=== PATIENT | male | born 2000 | race Caucasian/White ===

== ENCOUNTER 2022-10-21 09:15 | Emergency (ER) | payer MEDICAID, SELFPAY ==
[2022-10-21 09:21] VITALS: BP 112/70; PULSE 89; RESP 18; TEMP 36.9; O2SAT 94
--- NOTE | 2022-10-21 09:37 | ED.GENADUL_ITS ---
Discharge Plan Disposition Patient Disposition: Home Condition: Stable Discharge Details Clinical Impression: Cough, Conjunctivitis of right eye Primary Care Provider: Mary Kate Yadav ED Provider: Gurvinder Caraballo Home Meds and New Rx's Prescriptions: New erythromycin 5 mg/gram (0.5 %) ointment 0.5 inch ophthalmic (eye) TID 7 Days Qty: 3.5 0RF Discharge Instructions Instructions: Conjunctivitis (ED) Additional Instructions: if not better within a week follow up with your primary care provider if you feel more ill, have difficulty breathing or severe pain return to the emergency department Medical Decision Making 22 yo male comes in with chief complaint of right eye redness. HE states last Saturday he started with a runny nose and cough that has improved but today woke up with his right eye red and had discharge from the eye. Denies any fevers, chills, chest pain, dyspnea, vision changes. HE arrives stable, speaking in full sentences in no distress. His left eye appears normal, right eye conjunctiva is erythematous, PERRL, eomi, denies any eye pain. No periorbital swelling. Clear lungs, no murmurs. I suspect he had a viral uri that has improved and now has conjunctivitis. Do not feel oral antibiotics or lab work or imaging indicated. Will start on topical antibiotics for his eye and advised to f/u with his pcp if not improving this week, return precautions given Differential Diagnosis Differential Diagnosis: uri, flu, conjunctivitis Medical Records Medical records reviewed: Yes I reviewed the patient's medical records. HPI General Mode of arrival: ambulatory . Date/Time Provider Initiated Documentation: 10/21/22 09:22 . Limitations to Documentation: no limitations . Information obtained by: patient . History of Present Illness 22 year old M presents to the emergency department with the chief complaint of right eye redness, described as mild, Patient started experiencing this day(s) (1) and it has been constant. No relieving factors improve symptom(s), No exacerbating factors reported . Patient notes denies fever/chills. Patient did receive the following treatments prior to arrival, none Related Data Home Medications Medication Instructions Recorded Confirmed erythromycin 5 mg/gram (0.5 %) eye 0.5 inch ophthalmic (eye) TID 7 10/21/22 ointment days #3.5 grams Previous Rx's Medication Instructions Recorded erythromycin 5 mg/gram (0.5 %) eye 0.5 inch ophthalmic (eye) TID 7 10/21/22 ointment days #3.5 grams Allergies Allergy/AdvReac Type Severity Reaction Status Date / Time No Known Allergies Allergy Verified 10/21/22 09:26 General Stated Complaint: RespSymp CORAL: 4 Review of Systems All systems reviewed & are unremarkable except as noted in HPI and below Constitutional Constitutional: Denies chills, Denies fever(s) and Denies weakness Eyes Eyes: Denies loss of vision ENT Ears, Nose, Mouth, and Throat: Denies change in voice Cardiovascular Cardiovascular: Denies chest pain and Denies dyspnea Respiratory Respiratory: Denies dyspnea Gastrointestinal Gastrointestinal: Denies abdominal pain, Denies nausea and Denies vomiting Integumentary/Breasts Skin/Breast: Denies rash Neurologic Neurologic: Denies loss of vision and Denies weakness Endocrine Endocrine: Denies heat intolerance PFSH All Active Problems (Updated 10/21/22 @ 09:41 by Gurvinder Caraballo MD) Cough (Acute) Conjunctivitis of right eye (Acute) Weight loss (Acute) Atrial septal defect (Chronic 09/15/13) small PFO with L to R shunt - followed by peds cardiology 02/25 Suicidal ideation (Chronic) Is [facility] aware of Sumit and his needs? Depression (Chronic) Ongoing counseling but persistent suicidal ideation despite medication (hx of Lexapro, Zoloft, Wellbutrin)- trial Effexor 04/07/21 Social anxiety disorder (Chronic) Per evaluation with Dr. Chaudhary 11/2020 Attention and concentration deficit (Chronic) Per evaluation with Dr. Chaudhary Nov 2020 Cerebral palsy (Acute 02/02/16) [place] [facility] 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; mom involved Education Level: other Details: Graduated [employer] spring 2021; working at [employer] Do you need help understanding health information?: Always Sexually active: No Do you think of yourself as: straight/heterosexual Current gender identity: male Seatbelt use: always Helmet use: Yes Drive intox or ride w/intox tour driver: No Working smoke detector in home: Yes Fire extinguisher in home: Yes Carbon monox detector in home: Yes Firearms in home: No Do you feel safe at home: Yes Do you feel safe in your relationship?: Yes Exam Const General: no acute distress Orientation: alert HENMT Head: normal to inspection Ears: external ears normal General nose exam: external nose normal Mouth: moist mucous membranes Eyes Periorbital: periorbital findings normal Neck Neck: normal visual inspection Resp Effort & Inspection: normal respiratory effort and able to speak in complete sentences Cardio Rate: regular rate Skin General skin exam: no rashes or lesions noted Neuro General: patient alert and patient oriented x3 Extrem General: normal to inspection Psych Mental Status: mental status grossly normal Course Vital Signs Vital signs: Vital Signs Temperature 36.9 C 10/21/22 09:21 Pulse 89 10/21/22 09:21 Respiratory Rate 18 10/21/22 09:21 Blood Pressure 112/70 10/21/22 09:21 Pulse Oximetry 94 10/21/22 09:21 Temperature 36.9 C 10/21/22 09:21 Temperature Source Tympanic 10/21/22 09:21 Pulse 89 10/21/22 09:21 Respiratory Rate 18 10/21/22 09:21 Respiratory Effort Non-Labored 10/21/22 09:28 Respiratory Depth Normal 10/21/22 09:28 Blood Pressure 112/70 10/21/22 09:21 Blood Pressure Position Sitting 10/21/22 09:21 Pulse Oximetry 94 10/21/22 09:21 Oxygen Delivery Method Room Air 10/21/22 09:21 Oxygen Flow Rate 0 10/21/22 09:21 Pain Level 4 10/21/22 09:21
[2022-10-21 09:46] VITALS: BP 112/70; PULSE 89; RESP 18; TEMP 36.9; O2SAT 94
== END 2022-10-21 09:46 | disposition home or self-care (01) ==
PROVIDERS: Emergency Provider Emergency Medicine
DX: R05.1 Acute cough (principal); H10.31 Unspecified acute conjunctivitis, right eye
CPT/HCPCS: 99283; 99284

== ENCOUNTER 2023-08-25 08:37 | Emergency (ER) | payer MEDICAID, SELFPAY ==
--- NOTE | 2023-08-25 08:40 | W.ED.GENAD ---
Discharge Plan Disposition Patient Disposition: Home Discharge Details Clinical Impression: Tight ring on finger Primary Care Provider: Mary Kate Yadav ED Provider: Betiot Ji Home Meds and New Rx's Prescriptions: No Action No Known Home Meds Discharge Instructions Additional Instructions: You were seen in the emergency department for the tight ring that was stuck on your left ring finger. We remove this by cutting the ring. In your attempt last night to remove the ring it caused some significant abrasions, please carefully wash the area multiple times per day and use topical antibiotics. Please phone the emergency department or see your primary care or urgent care provider for antibiotics if there is signs of infection including worsening redness, redness spreading up the finger, drainage of pus from the area. Referrals: Mary Kate Yadav MD [Primary Care Provider] - Discharge Data Discharge Date/Time-TO BE ENTERED AT DEPARTURE: 08/25/23 09:22 Medical Decision Making This dictation utilizes [id number] dictation software and may contain unedited grammatical errors. 23 y/o M presents to ED today with a chief complaint of ring stuck on L 4th finger. Onset and characteristics include minor pain with attempts at removal, did cause minor abrasions. Patient has no relevant medical history, otherwise healthy. Family and social history: noncontributory. Pertinent exam findings / vital signs include NV intact distal L 4th finger, no signs of fracture, VSS. Differential / pathologies of concern include fracture, abrasion, NOT NV compromise. Diagnostic studies of: -none. Interventions of: -ring cutter removal of ring. ED Course: Acute uncomplicated injury without systemic symptoms- ring removed without issue, recommend simple wound care for his abrasions. Findings not consistent with fracture/NV Compromise. Disposition of Tight Ring on Finger. Assessment/Plan: Counseled the patient on keeping his minor abrasions clean and applying topical antibiotics to the area and staying away from placing rings that are too small on his fingers, the patient tolerated his procedure well. Patient verbalized understanding of the plan and return to ED criteria and engaged in shared decision making. Medical Records Medical records reviewed: Yes I reviewed the patient's medical records. HPI General Date/Time Provider Initiated Documentation: 08/25/23 08:40. HPI Narrative: 23 year-old male presents to ED today by POV/ambulating with his father with a chief complaint of ring stuck on L ring finger- he put the ring on last night and it was too tight, spent considerable time trying to yank it off causing minor abrasion and swelling to the PIP joint. Quality described as throbbing, painful when he tries to get it off, no radiation to numbness/tingling, ROM deficit, hand pain, purulent drainage. Severity is described as 4-5/10. Palliating factors include tried icing it last night but still could not remove the ring. Provoking factors include nothing specific. Patient not anticoagulated. Related Data Home Medications Medication Instructions Recorded Confirmed Unknown [No Known Home Meds] 02/14/23 08/25/23 Allergies Allergy/AdvReac Type Severity Reaction Status Date / Time No Known Allergies Allergy Verified 08/25/23 08:45 General CORAL: 4 PFSH All Active Problems (Updated 08/25/23 @ 09:16 by DELORES Koehler) Tight ring on finger (Acute) Intellectual disability (Chronic) Dad has legal guardianship- need paperwork for clinic Weight loss (Acute) Atrial septal defect (Chronic 09/15/13) small PFO with L to R shunt - followed by peds cardiology 02/25 Cerebral palsy (Chronic 02/02/16) Diagnosed 11/[address] [facility] [place] Dr. Esposito Medical History (Updated 08/25/23 @ 09:16 by DELORES Koehler) COVID In Oct 2021 Suicidal ideation Is [facility] aware of Sumit and his needs? Attention and concentration deficit Per evaluation with Dr. Chaudhary Nov 2020 Social anxiety disorder Per evaluation with Dr. Chaudhary 11/2020 Depression Ongoing counseling but persistent suicidal ideation despite medication (hx of Lexapro, Zoloft, Wellbutrin)- trial Effexor 04/07/21 Syncope (09/25/17) One episode 2015; one episode 2016 Family History Mother Anxiety Depression Father Hyperlipidemia Sister Asthma Grandparent Cancer Maternal Grandfather Alcohol abuse Anxiety Depression Social History (Updated 02/16/23 @ 11:39 by Mary Kate Yadav MD) Smoking/Tobacco Use Status: Never Second Hand Exposure: No Smoking risk assessment performed?: Yes Alcohol Intake: never Drug use: Never Substance use type: does not use Adopted: No Foster care: No Household members: other Details: Parents ; 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;Mom picks up from work Housing: apartment Number of Children: 0 Communication Needs: Corrective Lenses Education Level: other Details: Graduated [employer] spring 2021; working at [employer] Do you need help understanding health information?: Always Pets and animals: No Sexually active: No Do you think of yourself as: straight/heterosexual Current gender identity: male What is your relationship status?: never Panel score (0-1 are the most socially isolated patients): 0 What type of physical activity do you participate in: other Details: Basketball everyday, walks, bike riding Seatbelt use: always Helmet use: Yes Drive intox or ride w/intox grain combine driver: No Working smoke detector in home: Yes Fire extinguisher in home: Yes Carbon monox detector in home: Yes Firearms in home: No Do you feel safe at home: Yes Do you feel safe in your relationship?: Yes Exam Narrative Exam Narrative: GENERAL APPEARANCE: Well-nourished, non-toxic, awake and alert, atraumatic, no acute distress. SKIN: Warm, pink, dry, intact, without rashes/lesions/ulcerations. HEAD: Normocephalic, atraumatic, normal hair distribution for gender/age. EYES: Pupils PERRLA, EOMs intact without nystagmus, normal conjunctiva, no exudates on lids/lashes. ENT: Nares patent, no circumoral cyanosis, no facial swelling NECK: Supple, trachea midline, painless cervical ROM. LUNGS/CHEST: Non-labored respirations, normal A/P diameter, symmetrical expansion, no chest wall deformity HEART (CV/PV): Regular rate, L radial pulse 2+, no peripheral edema, no JVD. ABDOMEN: Soft, non-distended, no guarding. MSK: Normal ROM, no swelling/deformity to bilateral UEs or LEs, moving all extremities without weakness, no cyanosis, spine midline without tenderness, normal curvature. L Hand: Large class ring style ring stuck on the proximal phalanges of the left fourth finger, minor abrasion and swelling to the PIP joint from his attempts at removal, otherwise neurovascularly intact with brisk capillary refill and sensation intact, no range of motion deficit, no proximal hand tenderness. NEURO: Mental Status AAOx4 - alert to person, place, time, events No facial droop, no forehead involvement. Motor: No focal weakness - strength 5/5 in bilateral UEs and LEs, proximal and distal, symmetric. Sensory: sensation intact to light touch globally. Gait normal: patient ambulated without ataxia into ED room. PSYCH: euthymic, cooperative, pleasant, appropriate speech Procedures Other Description: Ring cutter removal of a metal ring from the proximal left fourth finger, I used a ring cutter blade guard between his finger and remove the ring by making 2 cuts in the ring and bending with simple forceps to removal without issue. The patient was neurovascularly intact pre and post ring removal and was advised on simple wound care for his minor abrasions from his attempts to try to remove the ring last night.
[2023-08-25 08:41] VITALS: BP 131/87; PULSE 70; RESP 14; TEMP 36.7; O2SAT 100
== END 2023-08-25 09:22 | disposition home or self-care (01) ==
LOC: ER 09:47
PROVIDERS: Emergency Provider Physician Assistant
DX: S60.445A External constriction of left ring finger, initial encounter (principal); W49.04XA Ring or other jewelry causing external constriction, initial encounter
CPT/HCPCS: 99282; 99283

== ENCOUNTER 2024-06-05 17:31 | Outpatient (REF) | payer MEDICAID, SELFPAY ==
--- OUTSIDE RECORDS SUMMARY | 2024-06-05 17:33 | XMS_ITS | Encounter Summary ---
Author Organization [facility] [place] [address] Care Team Providers Care Combine Driver Name Role Phone Robel Christianson MD Primary Care Provider [phone] Reason for Visit * Reason Comments Follow-up Encounter Details Date Type Department Care Team (Latest Contact Info) Description 10/03/2015 2:00 PM EST Office Visit [place] [address] Yarely Aguilera APRN [facility] [address] PEDIATRIC [place] [address] Developmental delay; Developmental regression Social History Tobacco Use Types Packs/Day Years Used Date Smoking Tobacco: Never Smokeless Tobacco: Never Sex and Gender Information Value Date Recorded Sex Assigned at Not on file Gender Identity Not on file Sexual Orientation Not on file documented as of this encounter Last Filed Vital Signs Vital Sign Reading Time Taken Comments Blood Pressure 89/61 10/03/2015 1:54 PM EST Pulse 72 10/03/2015 1:54 PM EST Temperature - - Respiratory Rate - - Oxygen Saturation - - Inhaled Oxygen Concentration - - Weight 29.7 kg (65 lb 6.4 oz) 10/03/2015 1:54 PM EST Height 147.3 cm (4' 10) 10/03/2015 1:54 PM EST Head Circumference 54.6 cm 10/03/2015 1:54 PM EST Body Mass Index 13.67 10/03/2015 1:54 PM EST Body Mass Index Percentile 0.05% 10/03/2015 1:5 4 PM EST Growth Chart: [facility] (Boys, 2-2 0 Years) documented in this encounter Patient Instructions * Patient Instructions* Yarely Aguilera APRN - 10/03/2015 2:40 PM EST Images from the original note were not included. 1. I will call you this week after speaking with Dr. Davis about further testing. 2. Will try to coordinate follow-up with other scheduled appointments. [facility] A Healthy Lifestyle for Your Child: After Your Child's Visit Your Care Instructions A healthy lifestyle can help your child feel good, stay at a healthy weight, and have lots of energy for school and play. In fact, a healthy lifestyle will help your whole family. It also will show your child that everyone needs to take care of his or her health. Good food and plenty of exercise are the main things you can do to have a healthy lifestyle. Healthy eating means eating fruits and vege tables, lean meats and dairy, and whole grains. It also means not eating too much fat, sugar, and fast food. Your child can still eat desserts or other treats now and then. The goal is moderation. It is important for your child to stay at a healthy weight. A child who weighs too much may developserious health problems, such as high blood pressure, high cholesterol, or type 2 diabetes. Good eating habits and exercise are especially important if your child already has any health problems. You can follow a few tips to improve the health of your child and your whole family. Follow-up care is a lucero part of your child's treatment and safety. Be sure to make and go to all appointments, and call your doctor if your child is having problems. It's also a good idea to know your child's test results and keep a list of the medicines your child takes. How can you care for your child at home? ?? Start with some small steps to improve your family's eating habits. You can cut down on portion sizes, drink less juice and soda pop, and eat more fruits and vegetables. ?? Eat smaller portions of food. A 3-ounce serving of meat, for example, is about the size of a deck of cards. ?? Let your child drink no more than 1 small cup of juice, sports drink, or soda pop a day. Have your child drink water when he or she is thirsty. ?? Offer more fruits and vegetables at meals and snacks. ?? Eat as a family as often as possible. Keep family meals fun and positive. ?? Make exercise a part of your family's daily life. Encourage your child to be active for at least1 hour every day. ?? Walk with your child to do errands or to the bus stop or school. ?? Take bike rides as a family. ?? Give every family member daily, weekly, or monthly chores, such as housecleaning, weeding the garden, or washing the car. ?? Let your child watch television or play video games for no more than 1 to 2 hours each day. Sit down with your child and plan out how he or she will use this time. ?? Do not put a TV in your child's room. ?? Be a good role model. Practice the eating and exercise habits that you want your child to have. Where can you learn more? Visit our health information library at [email or web address] You can also view health information on [employer], your personal patient account. Log in or sign up today. Enter U981 in the search box to learn more about A Healthy Lifestyle for Your Child: After Your Child's Visit. ?? [phone] [email or web address]. Care instructions adapted under license by [facility]. This care instruction is for use with your licensed healthcare professional. If you have questions about a medical condition or this instruction, always ask your healthcare professional. [email or web address] disclaims any warranty or liability for your use of this information. Content Version: 10.4.500825; Current as of: August 27, 2014 documented in this encounter Progress Notes * Yarely Aguilera APRN - 10/03/2015 1:55 PM EST Patient name: Sumit Simmons Date of : 2000 History of Present Illness: Sumit Simmons was seen today in clinic for follow up of developmental delay and regression in the area of spelling and writing. He is a 13-1/12th year old last seen 07/[address] Davis. He is here today with his mother. Patient Active Problem List Diagnosis Code ??? PFO (patent foramen ovale) Q21.1 ??? Aortic valve defect I35.9 ??? Developmental delay R62.50 ??? Developmental regression R62.50 ??? Transient alteration of awareness R40.4 Sumit is a 15 year old male with history of developmental delay and learning difficulties. He is josie IEP at school and is integrated into the mainstream classroom with special education pull out support. There is also an aide in the classroom who will help him throughout the day. He has difficulty specifically with literacy and math. He reads very well but his comprehension is below grade level, per mom. He will ask for help with spelling of words he can easily read. Math is his weakest subject and he is working on addition and subtraction. Sumit reports he likes science. 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 At home he watches TV and plays basketball and football with his dad. There have been no suspected seizures. He used to chew his tongue and grind his teeth when he was younger. He does not have disturbed sleep or urinary incontinence. He is a picky eater. He likes hamburgers, macaroni and cheese, pasta, peanut butter and drinks whole milk. His mother will give him sup plemental calorie drinks as well. Updated family history: He has as a paternal cousin with autism and another paternal cousin with dyslexia. Review of systems: As above. No other EENT, cardiac, respiratory, gastrointestinal, genitourinary, musculoskeletal, skin, hematologic, endocrine, ID, or neurologic complaints. Medications 10/03/15 1354 Not on File Physical Exam: Vitals: Filed Vitals: 10/03/15 1354 BP: 89/61 Pulse: 72 Constitutional: Well-appearing slim male in NAD. HEENT: Normocephalic, atraumatic. MMM. Neck: Supple, no lymphadenopathy CV: RRR, no murmur appreciated Resp: CTAB Abd: Soft, nontender, nondistended Neuro: MS: Alert and oriented. Speech is fluent and language is clear. Easily follows commands. CN: PERRL. Extraocular movements intact. Vision is grossly intact. Optic fundi are benign. Stearns are full to confrontation. Facial sensation is intact. Face is symmetric with smile. Motor: Normal bulk and tone. 5/5 strength in bilateral upper and lower extremities. There is no pronator drift. Sensation: Intact to light touch throughout. Reflexes: 2+ and symmetric DTRs, bilaterally downgoing toes. Coordination: No gross dysmetria. Gait: Normal, including tandem and stressed gait. LABORATORY DATA: (from Dr. Davis's compendium of labs) Imaging Studies: 07/2015 brain MRI IMPRESSION: Negative brain MRI. Gene Studies: ?? Chromosome microarray, SNP: normal. Heme and Inflammatory Studies: CBC (with Diff): Normal Lyme: Antibody Positive, Confirmation negative TT.5 EEGs: ?? August, 24 Hour EEG, Portable: normal; no push button events. No ESES. Small Molecule Disease Studies: Uric acid: Normal Triglyceride: Normal HDL/Cholesterol Profile: Normal Lactate, plasma: Normal Ammonia: Normal Organic Acids Screen, urine: Normal 3-Methylglutaconic Acid, Urine: 8.6, mildly above the age range. Purine and Pyrimidine Panel, urine: the excretion of uric acid was mildly elevated. Patients with complete hypoxanthine-guanine phosphoribosyltransferase (HGPRT) deficiency (Lesch-Nyhan syndrome; X-linked) or phosphoribosyl pyrophosphatase (PRPP) synthetase superactivity (X-linked) usually present with more significant hyperuricosuria. Alternatively, disorders presenting with low uric acid in plasma and hyperuricosuria include hereditary renal hypouricemia and other tubular transport defects. Finally, a diet high in purines may cause increased levels of plasma and urine uric acid. We need clinical information to provide further interpretation. Acylglycines Quantitative Urine: normal. Acylcarnitines, plasma, quantitative: normal. Carnitine: normal CK: Normal TSH: Normal T4, free: Normal Vitamin D: 37 Amino Acids, Urine, Quantitative: the excretion of lysine was mildly elevated. If the patient has a history of protein intolerance and hyperammonemia, consider ruling out a possible diagnosis of lysinuric protein intolerance. Large Molecule Disease Studies: Mucopolysaccharides (MPS) Quantitative, Urine: normal. Patients with MPS IV (Morquio), MPS ([place]oteaux-[place]) and MPS VII (Sly) are not reliably detected due to the inconsistent excretion of glycosaminoglycans in these syndromes. False negative results have been observed. Assessment: Patient Active Problem List Diagnosis ??? Transient alteration of awareness ??? Developmental delay Overview Note: Language primarily ??? Developmental regression ??? Aortic valve defect Overview Note: 11-24-10 ECHO: aortic valve appears bicommissural. No evidence of aortic valve stenosis. Trace aortic regurgitation 03-08-15 ECHO: Aortic valve appears normal. There is trace aortic regurgitation. This is barely seen, and much less apparent than on prior studies. No SBE precautions. No activity restrictions. Follow up 2019 ??? PFO (patent foramen ovale) Overview Note: 11-24-10 ECHO: small secundum atrial septal defect. Measures 3-4mm in diameter. Left to right shunting 03-08-15 ECHO: tiny PFO with left to right shunting. No secundum ASD Sumit Simmons is a 15 y.o. seen today for follow up of developmental delay and regression. [place] Dr. Davis who initiated a work-up for underlying cause of his developmental delay. I reviewedthese labs with Dr. Davis Plan: 1. Urine for flexitest uric acid/Cr ratio to [email or web address] (Dr. Davis will put in this order). 2. Blood amino acids 3. Follow up with Dr. Davis or Brittany if this can be coordinate with 12/06 or 12/07 appointments with child development. documented in this encounter Plan of Treatment Not on file documented as of this encounter Results * (ABNORMAL) Amino Acids, Plasma, Quantitative (12/07/2015 10:46 AM EST) Amino Acid Quant (MAY) Test ? Result ??Flag ??Unit ? RefValue Amino Acids, QN, P ??Phosphoserine ?0 ? nmol/mL ??<95 ??Phosphoethanol amine ?<2 ?nmol/mL ??<5 ??Taurine ?58 ?nmol/mL ??38-153 ??Asparagine ? 79 ?nmol/mL ??29-87 ??Serine ? 134 ? nmol/mL ??71-208 ??Hydroxyproline ? 19 ?nmol/mL ??7-35 ??Glycine ?415 ? nmol/mL ??149-417 ??Glutamine ?756 ? nmol/mL ??329-976 ??Aspartic Acid ?2 ? nmol/mL ??<11 ??Ethanolamine ? <7 ?nmol/mL ??<64 ??Histidine ?97 ?nmol/mL ??12-132 ??Threonine ?142 ? nmol/mL ??58-195 ??Citrulline ? 28 ?nmol/mL ??11-45 ??Sarcosine ?1 ? nmol/mL ??<5 ??Beta-Alanine ? 9 ? nmol/mL ??<27 ??Alanine ?478 ? nmol/mL ??144-557 ??Glutamic Acid ?23 ?nmol/mL ??22-131 ??1-Methylhistid ine ?0 ? nmol/mL ??<20 ??3-Methylhistid ine ?2 ?H ?nmol/mL ??<1 ??Argininosuccin ic Acid ?0 ? nmol/mL ??<2 ??Carnosine ?0 ? nmol/mL ??<1 ??Anserine ? 0 ? nmol/mL ??<1 ??Homocitrulline ? 0 ? nmol/mL ??<2 ??Arginine ? 82 ?nmol/mL ??31-132 ??Alpha-aminoadi pic Acid ? 1 ? nmol/mL ??<3 ??Prhcp-mhsdo-f- butyric ?0 ? nmol/mL ??<3 ?Acid ??Beta-aminoisob utyric Acid ??2 ? nmol/mL ??<5 ??Wknnz-qaldj-m- butyric ?18 ?nmol/mL ??7-31 ?Acid ??Hydroxylysine ?0 ? nmol/mL ??<3 ??Proline ?274 ? nmol/mL ??80-357 ??Ornithine ?64 ?nmol/mL ??22-97 ??Cystathionine ?<1 ?nmol/mL ??<2 ??Cystine ?25 ?nmol/mL ??2-36 ??Lysine ? 177 ? nmol/mL ??59-240 ??Methionine ? 20 ?nmol/mL ??11-37 ??Valine ? 243 ? nmol/mL ??106-320 ??Tyrosine ? 52 ?nmol/mL ??31-106 ??Isoleucine ? 70 ?nmol/mL ??30-111 ??Leucine ?134 ? nmol/mL ??51-196 ??Phenylalanine ?57 ?nmol/mL ??30-95 ??Tryptophan ? 63 ?nmol/mL ??23-80 ??Allo-isoleucin e ?2 ? nmol/mL ??<3 ??Interpretation (AAQP) ?SEE COMMENTS In this sample, the amino acid profile was essentially normal. ---ADDITIONAL INFORMATION----- Liquid Chromatography-T andem Mass Spectrometry (LC-MS/MS) Test Performed by: [place] [address] Dumper Operator: Paco Emery II, M.D., Ph.D.(A) [facility] Blood specimen (specimen) 12/07/2015 10:46 AM EST 12/07/2015 12:43 PM EST Narrative Resulting Agency Comment Spec In Lab Tawanda Davis MD LAB SEND OUT ORDERAB LES Performing Organization Address City/State/[facility] Co de Phone Number [facility] [place] [address] documented in this encounter Visit Diagnoses Diagnosis Developmental delay Lack of normal physiological development, unspecified Developmental regression Unspecified delay in development documented in this encounter Care Teams Combine Driver Relationship Specialty Start Date End Date Robel Christianson MD [address] [place] [address] PCP - General 09/05/10 02/26/22 documented as of this encounter
--- OUTSIDE RECORDS SUMMARY | 2024-06-05 17:33 | XMS_ITS | Encounter Summary ---
[facility] [place] [address] Care Team Providers Care Electronics Scale Tester Name Role Phone Robel Christianson MD Primary Care Provider [phone] Encounter Details Date Type Department Care Team (Latest Contact Info) Description 03/08/2015 12:43 PM EDT - 03/08/2015 11:59 PM EDT Hospital Encounter [place] [phone] ASD (atrial septal defect); Aortic valve defect Social History Tobacco Use Types Packs/Day Years Used Date Smoking Tobacco: Never Sex and Gender Information Value Date Recorded Sex Assigned at Not on file Gender Identity Not on file Sexual Orientation Not on file documented as of this encounter Plan of Treatment Not on file documented as of this encounter Procedures Procedure Name Priority Date/Time Associated Diagnosis Comments ECHOCARDIOGRAM TRANSTHORACIC Routine 03/08/2015 1:36 PM EDT ASD (atrial septal defect) Aortic valve defect documented in this encounter Results * Echocardiogram Transthoracic(Leb) (03/08/2015 1:36 PM EDT) Anatomical Region Laterality Modality Other 03/08/2015 Narrative 03/08/2015 4:05 PM EDT Amended Report Procedure: ? Pediatric Echocardiogram Patient: ? RILEY Akhtar ? (Age): 2000(14) Med Rec#: ?[id number] ? Sex: ?M ? Site Loc: ?[facility] ? Ht / Wt: ??144.2(cm)/28.1( Pt. Loc: ? Echo Lab ? BSA: ?1.06 Study Date: ?03/08/2015 ? Pt. Type: Outpatient Study Quality: ?Tape: ? 33 Referring: Eliseo Miller B. ([id number]) Outreach Clinician: Kim Loza Diagnosis: ??PFO (745.5) CPT Code(s): ??Color Doppler (45799), ??Doppler LTD (69368), ??Echo Matty LTD (10515), Indication(s): ??Patent foramen ovale Rhythm: Sinus HR ?BP ?103/63 ?? SUMMARY: 1. There is a tiny PFO with left to right shunting. There is no secundum ASD. 2. The aortic valve appears normal. There is trace aortic regurgitation. This is barely seen, and much less apparent than on prior studies. 3. Qualitatively normal left ventricular size and systolic function. 4. See remainder of report for additional findings. FINDINGS: Segments/Situs ?{S,D,S} Atria And Veins ?The SVC and IVC enter the right atrium with normal flow. ?The pulmonary veins were not evaluated. ?The right atrium is normal sized. ?The left atrium is normal sized. Atrial Septum ?There is a PFO with left to right shunting. ?There is no secundum ASD. Atrioventricular Valves ?The tricuspid valve appears normal. ?There is mild tricuspid regurgitation. ?TR jet estimates right ventricular pressure at 14 mmHg plus mean right atrial pressure. ?The mitral valve structure appears normal. ?There is no evidence of mitral valve stenosis. ?There is no evidence of mitral regurgitation. Ventricles ?Qualitatively normal right ventricular size and systolic function. ?Qualitatively normal left ventricular size and systolic function. Semilunar Valves ?The pulmonic valve leaflets appear normal. ?There is no pulmonic valve stenosis. ?There is trace pulmonic regurgitation. ?The aortic valve appears normal. ?There is trace aortic regurgitation. ?Aortic root is normal sized. Great Vessels ?The ascending aorta, transverse arch, and descending aorta are widely patent without obstruction to flow. ?The ascending aorta is normal sized. Coronaries ?The coronary arteries were not evaluated. Effusion ?The pericardium appears normal. Miscellaneous ?Congenital two-dimensional echo limited, limited spectral Doppler and color Doppler performed. M-mode ?Value ?Units (Range) ? Z Score ? IVSd ?6 ?mm (5.5 to 9) ? -1.5 ? LVIDd ? 41 ? mm (34 to 45.5) ? 0.4 ? LVPWd ? 5 ?mm (5.5 to 9) ? -2.7 ? LVIDs ? 27 ? mm ? LVFS ?34.15 ?% ? LV Mass ? 60.24 ?g ? Aorta ?Value ?Units (Range) ? Z Score ? Ao annulus ?17 ? mm (12.5 to 18.5) ?? 1 ? Ao root ? 21 ? mm (15.5 to 24.5) ?? 0.4 ? Sinotub ? 5 ?mm ? Asc Ao ?17 ? mm (13.5 to 21) ? -0.2 ? Tricuspid Valve ?Value ?Units (Range) ? Z Score ? TR pk dianelys ? 1.9 ?m/sec ? TR pk grad ?14 ? mmHg ? All Z scores are estimated This report has been electronically signed by: Eliseo Miller MD ? 03/08/2015 16:05:34 Images reviewed and interpretation verified [facility] Procedure Note Eliseo Miller MD - 03/08/2015 Amended Report Procedure: Pediatric Echocardiogram Patient: RILEY Akhtar (Age): 2000(14) Med Rec#: [id number] Sex: M Site Loc: [facility] Ht / Wt: 144.2(cm)/28.1( Pt. Loc: Echo Lab BSA: 1.06 Study Date: 03/08/2015 Pt. Type: Outpatient Study Quality: Tape: 33 Referring: Eliseo Miller B. ([id number]) Outreach Clinician: Kim Loza Diagnosis: PFO (745.5) CPT Code(s): Color Doppler (20195), Doppler LTD (07363), Echo Matty LTD (09598), Indication(s): Patent foramen ovale Rhythm: Sinus HR BP 103/63 SUMMARY: 1. There is a tiny PFO with left to right shunting. There is no secundum ASD. 2. The aortic valve appears normal. There is trace aortic regurgitation. This is barely seen, and much less apparent than on prior studies. 3. Qualitatively normal left ventricular size and systolic function. 4. See remainder of report for additional findings. FINDINGS: Segments/Situs {S,D,S} Atria And Veins The SVC and IVC enter the right atrium with normal flow. The pulmonary veins were not evaluated. The right atrium is normal sized. The left atrium is normal sized. Atrial Septum There is a PFO with left to right shunting. There is no secundum ASD. Atrioventricular Valves The tricuspid valve appears normal. There is mild tricuspid regurgitation. TR jet estimates right ventricular pressure at 14 mmHg plus mean right atrial pressure. The mitral valve structure appears normal. There is no evidence of mitral valve stenosis. There is no evidence of mitral regurgitation. Ventricles Qualitatively normal right ventricular size and systolic function. Qualitatively normal left ventricular size and systolic function. Semilunar Valves The pulmonic valve leaflets appear normal. There is no pulmonic valve stenosis. There is trace pulmonic regurgitation. The aortic valve appears normal. There is trace aortic regurgitation. Aortic root is normal sized. Great Vessels The ascending aorta, transverse arch, and descending aorta are widely patent without obstruction to flow. The ascending aorta is normal sized. Coronaries The coronary arteries were not evaluated. Effusion The pericardium appears normal. Miscellaneous Congenital two-dimensional echo limited, limited spectral Doppler and color Doppler performed. M-mode Value Units (Range) Z Score IVSd 6 mm (5.5 to 9) -1.5 LVIDd 41 mm (34 to 45.5) 0.4 LVPWd 5 mm (5.5 to 9) -2.7 LVIDs 27 mm LVFS 34.15 % LV Mass 60.24 g Aorta Value Units (Range) Z Score Ao annulus 17 mm (12.5 to 18.5) 1 Ao root 21 mm (15.5 to 24.5) 0.4 Sinotub 5 mm Asc Ao 17 mm (13.5 to 21) -0.2 Tricuspid Valve Value Units (Range) Z Score TR pk dianelys 1.9 m/sec TR pk grad 14 mmHg All Z scores are estimated This report has been electronically signed by: Eliseo Miller MD 03/08/2015 16:05:34 Images reviewed and interpretation verified [facility] Jasbir Farrar MD ECHO ORDERABLES documented in this encounter Visit Diagnoses Diagnosis ASD (atrial septal defect) Ostium secundum type atrial septal defect Aortic valve defect Aortic valve disorders documented in this encounter Care Teams Electronics Scale Tester Relationship Specialty Start Date End Date Robel Christianson MD [address] [place] [address] PCP - General 09/05/10 02/26/22 documented as of this encounter
--- OUTSIDE RECORDS SUMMARY | 2024-06-05 17:33 | XMS_ITS | Encounter Summary ---
Author Organization [facility] [place] [address] Care Team Providers Care Office Cashier Name Role Phone Robel Christianson MD Primary Care Provider [phone] Encounter Details Date Type Department Care Team (Late st Contact Info) Description 10/19/2015 Telephone [place] [phone] Yarely Aguilera APRN [facility] [place]AT[place] [address] Social History Tobacco Use Types Packs/Day Years Used Date Smoking Tobacco: Never Smokeless Tobacco: Never Sex and Gender Information Value Date Recorded Sex Assigned at Not on file Gender Identity Not on file Sexual Orientation Not on file documented as of this encounter Miscellaneous Notes * Telephone Encounter - Yarely Aguilera APRN - 10/19/2015 1:56 PM EST Spoke with mom- orders in for additional labs, would like for Sumit to come in prior to his follow up to have labs done. Mom in agreement with plan. documented in this encounter Plan of Treatment Not on file documented as of this encounter Visit Diagnoses Not on filedocumented in this encounter Care Teams Office Cashier Relationship Specialty Start Date End Date Robel Christianson MD [address] [place] [place] [address] PCP - General 09/05/10 02/26/22 documented as of this encounter
--- OUTSIDE RECORDS SUMMARY | 2024-06-05 17:33 | XMS_ITS | Encounter Summary ---
Author Organization [facility] [place] [address] Care Team Providers Care Level Vial Grinder Name Role Phone Robel Christianson MD Primary Care Provider [phone] Encounter Details Date Type Department Care Team (Late st Contact Info) Description 11/30/2015 [place] [address] Velvet Ray MEd CHILD DEVELOPMENT Social History Tobacco Use Types Packs/Day Years Used Date Smoking Tobacco: Never Smokeless Tobacco: Never Sex and Gender Information Value Date Recorded Sex Assigned at Not on file Gender Identity Not on file Sexual Orientation Not on file documented as of this encounter Progress Notes * Velvet Ray MEd - 11/30/2015 2:58 PM EST Sumit is an15 year old sixth grader at the [employer] in [place], [place] where he receives special education services through an Individualized Education Plan (IEP)under the primary disability on Intellectual Disability and receives special education, small group instruction in math and language arts 5 days a week for 60 minutes each, speech therapy 2 times a week for 20 minutes each,and para-educator support with IEP goals that focus on the areas of reading comprehension, math calculation, concepts and problem solving, written expression and communication skills. As part of his [employer] testing, Sumit was given the following test and received the indicated scores in 12/2013: WISC-IV ([employer] Intelligence Scale for Children-IV) Verbal Comprehension 55 Extremely Low Similarities 3 Vocabulary 1 Information 3 Perceptual Reasoning 55 Extremely Low Block Design 3 Picture Concepts 3 Matrix Reasoning 2 Working Memory 50 Extremely Low Digit Span 1 Letter/# Sequence 1 Processing Speed 50 Extremely Low Coding 1 Symbol Search 1 Full Scale IQ 43 Extremely Low [place] Tyrone-III Achievement Test AGE-BASED GRADE-BASED Basic Reading Skills SS 80 Age 8.4Low Average SS 86 Gr. 3.0 Low Average Letter/Word Ident. SS 77 Age 8.4 Borderline SS 85 Gr. 3.0 Low Average Word Attack SS 87 Age 8.3 Low Average SS 91 Gr. 2.9 Average Reading Comprehension SS 46 Age 6.8 Extremely Low SS 46 Gr. 1.4 Extremely Low Passage Comp. SS 66 Age 7.2 Extremely Low SS 75 Gr. 1.9 Borderline Reading Vocabulary SS 41 Age 6.0 Extremely Low SS 39 Gr. K.7 Extremely Low Mathematics Calculation SS 25 Age 6.4 Extremely Low SS 28 Gr. 1.0 Extremely Low Calculation SS 32 Age 6.5 Extremely Low SS 37 Gr. 1.1 Extremely Low Math Fluency SS 49 Age 5.1 Extremely Low SS 51 Gr. <K.1Extremely Low Math Reasoning SS 48 Age 6.4 Extremely Low SS 54 Gr. 1.0 Extremely Low Applied Problems SS 45 Age 5.9 Extremely Low SS 50 Gr. K.5 Extremely Low Quantitative ConceptsSS 56 Age 6.11Extremely Low SS 65 Gr. 1.7 Extremely Low Written Expression SS 43 Age 6.9 Extremely Low SS 52 Gr. 1.4 Extremely Low Writing Fluency SS 69 Age 7.7 Extremely Low SS 72 Gr. 2.3 Borderline Writing Samples SS 34 Age<6.7Extremely Low SS 42 Gr. <1.3 Extremely Low Adaptive Behavior Assessment System-II (ABAS-II)-only enough information was obtained for these areas on the home survey, none available for school portion. General Adaptive Composite 40 Conceptual 48 Social 53 Practical 40 *adaptive data from the home reveals significant amount of extremely low adaptive deficit across all areas assessed.* CELF-4 Composite Scores Core Language SS 48 Receptive Language SS 52 Expressive Language SS 55 Language Content SS 58 Language Memory SS 48 [place] Picture Vocabulary Test (PPVT) SS 93 32%ile In 03/2010, Sumit received the following test scores: WISC -IV Verbal Comprehension Index SS 59 Well below Average Perceptual Reasoning SS 71 Borderline Working Memory SS 54 Well Below Average Processing Speed SS 70 Borderline Full Scale IQ SS 56 Well Below Average BASC-2 - Home: overall behavioral systems index, internalizing and externalizing problems were within normal limits; Withdrawal and Attention problems were in the clinically significant range, Adaptive scale within the marginally significant range, functional communication in the statistically significant range; School: BSI, eternalizing and internalizing problems in the normal range; adaptive scale, social skills, leadership and functional communication in the borderline range. ABAS-II Conceptual SS 78 7%ile Social SS 91 27%ile Practical SS 89 23%ile General Ability Composite SS 82 12%ile Low Average Range *mom???s primary concern is finding Sumit???s cognitive, developmental and potential capabilities versus his achievement to report to the school in developing his home and future educational direction, needs and recommendations since he hasn???t been tested in a while and they are approaching the teenage transitional years.* documented in this encounter Plan of Treatment Not on file documented as of this encounter Visit Diagnoses Not on filedocumented in this encounter Care Teams Level Vial Grinder Relationship Specialty Start Date End Date Robel Christianson MD [address] [place] [address] PCP - General 09/05/10 02/26/22 documented as of this encounter
--- OUTSIDE RECORDS SUMMARY | 2024-06-05 17:33 | XMS_ITS | Encounter Summary ---
Author Organization [facility] Address [facility] [place] [address] Care Team Providers Care Maintenance Mechanic Telephone Name Role Phone Robel Christianson MD Primary Care Provider [phone] Reason for Referral * Consultation (Routine) - Closed Specialty Diagnoses / Procedures Referred By Contac t Referred To Contact Child Neurology and Development Diagnoses Lack of stamina Procedures Please schedule NPW and send Dr. Feng's packet. Eliseo Miller MD [facility] [place] [address] Tawanda Feng MD [facility] [place] [address] Referral ID Status Reason Start Date Expiration Date V isits Requested Visits Authorized [id number] Closed Consult, Test & Treat 03/08/2015 03/07/2016 3 3 Reason for Visit * Reason Comments Atrial Septal Defect Encounter Details Date Type Department Care Team (Late st Contact Info) Description 03/08/2015 2:00 PM EDT Follow-Up Pediatric Cardiology at [place] [phone] Eliseo Miller MD [facility] [place] [place] [address] Lack of stamina Discharge Disposition: Home Social History Tobacco Use Types Packs/Day Years Used Date Smoking Tobacco: Never Sex and Gender Information Value Date Recorded Sex Assigned at Not on file Gender Identity Not on file Sexual Orientation Not on file documented as of this encounter Last Filed Vital Signs Vital Sign Reading Time Taken Comments Blood Pressure 103/63 03/08/2015 1:18 PM EDT right arm Pulse 67 03/08/2015 1:18 PM EDT Temperature - - Respiratory Rate 24 03/08/2015 1:18 PM EDT Oxygen Saturation 100% 03/08/2015 1:1 8 PM EDT Inhaled Oxygen Concentration - - Weight 28.1 kg (61 lb 15.2 oz) 03/08/20 15 1:18 PM EDT Height 144.2 cm (4' 8.77) 03/08/2015 1 :18 PM EDT Body Mass Index 13.51 03/08/2015 1:18 PM EDT Body Mass Index Percentile 0.07% 03/08 1:18 PM EDT Growth Chart: [facility] (Boys, 2-2 0 Years) documented in this encounter Progress Notes * Eliseo Miller MD - 03/08/2015 2:35 PM EDT Sumit is a 14 y.o. old ( 2000) child seen in the Pediatric Cardiology Clinic at [facility] on 03/08/2015 with the following problems: Patient Active Problem List Diagnosis ??? Aortic valve defect 11-24-10 ECHO: aortic valve appears bicommissural. No evidence of aortic valve stenosis. Trace aortic regurgitation. ??? PFO (patent foramen ovale) 11-24-10 ECHO: small secundum atrial septal defect. Measures 3-4mm in diameter. Left to right shunting. Follow up 3-4 years Interim History: Sumit has been a healthy child since the last visit with no specific symptoms referable to the cardiovascular system. Sumit has a longstanding history of poor stamina. This has not changed recently. His mother reportsthat Sumit fatigues easily with any activity. He went for a bike ride with his father over the weekend and had difficulty riding for 2 miles. He is not so much short of breath as he is just tired outwith that level of exercise. Sumit has had no complaints of chest pain, dyspnea, palpitations and syncope. Sumit has had no recent hospitalizations or surgery. Past Medical History: Sumit was first diagnosed with an ASD as a . Echocardiograms have alsoshown a bicuspid aortic valve with trace aortic insufficiency. Sumit began walking at 4 years of and, never crawled. He has been evaluated in the Child Development Clinic in [place], but was last seen there 5 years ago. Sumit was evaluated by Genetics many years ago (apparently in [place]); mother relates that no diagnosis was made. He has not seen a Neurologist or had other evaluation for his poor stamina.. Review of Systems: + for learning disorder Negative for other constitutional, respiratory, gastrointestinal, neurologic, endocrine, hematologic, immunologic, urinary, dermatologic, or musculoskeletal symptoms. Social History: Sumit is here today with his mother. Sumit is in the fifth grade and has an IEP. Medications: No current outpatient prescriptions on file. No current facility-administered medications for this visit. Physical Exam: Filed Vitals: 03/08/15 1318 BP: 103/63 Pulse: 67 Resp: 24 Height: 144.2 cm (4' 8.77) Weight: 28.1 kg (61 lb 15.2 oz) SpO2: 100% 1%ile based on [facility] 2-20 Years [id number] data using vitals from 03/08/2015. 13%ile based on [facility] 2-20 Years [id number] data using vitals from 03/08/2015. Body mass index is 13.51 kg/(m^2). Sumit is a pleasant, thin boy in no distress. General: Alert, appropriate and responsive HEENT: No dysmorphic facial features; mucosa is pink and moist; sclera are not injected, gaze is conjugate Chest: Unlabored effort; clear to auscultation bilaterally; equal breath sounds. Cardiovascular: Regular rate and rhythm. Normal precordial activity. S1 normal. S2 normal. No systolic or diastolic murmur. No click, gallop or rub Abdomen: Soft. Non-tender and non-distended. No hepatosplenomegaly. Extremities: No deformities. Brachial and femoral pulses normal and non- discrepant. No clubbing, cyanosis or edema Neurological: Normal tone, strength, and response to tactile stimuli Skin: Normal appearance and turgor ECHO: The echocardiogram obtained today was reviewed and demonstrates: 1. There is a tiny PFO with left to right shunting. There is no secundum ASD. 2. The aortic valve appears normal. There is trace aortic regurgitation. This is barely seen, and much less apparent than on prior studies. 3. Qualitatively normal left ventricular size and systolic function. 4. See remainder of report for additional findings. Assessment: Sumit has evidence for any significant cardiac problems. The echocardiogram today is reassuring with a tiny patent foramen ovale, only trace aortic insufficiency, and a normal appearing aortic valve.Ventricular function is normal. Sumit has no evidence for problematic arrhythmia or syncope. Sumit has poor stamina that cannot be explained by any cardiac condition. It is my impression that this warrants further evaluation given the degree of exercise impairment. We discussed that a neurometabolic cause should be considered, and that it would be reasonable to refer Sumit for neurometabolic evaluation. Recommendations: No further cardiac evaluation at this time. Referral to Dr. Feng for neurometabolic evaluation. No limitations or restrictions in Sumit's activity. SBE precautions are not indicated based on [place] [employer] guidelines. Follow-up: 5 years in Cardiology with electrocardiogram at that time. documented in this encounter Plan of Treatment Scheduled Referrals Name Type Priority Associated Diagnoses Orde r Schedule Referral to Pediatric Neurology Outpatient Referral Routine Lack Of Stamina Ordered: 03/08/2015 documented as of this encounter Visit Diagnoses Diagnosis Lack of stamina documented in this encounter Care Teams Maintenance Mechanic Telephone Relationship Specialty Start Date End Date Robel Christianson MD [address] [place] [address] PCP - General 09/05/10 02/26/22 documented as of this encounter
--- OUTSIDE RECORDS SUMMARY | 2024-06-05 17:33 | XMS_ITS | Encounter Summary ---
Author Organization [facility] [place] [address] Care Team Providers Care Returned Case Inspector Name Role Phone Robel Christianson MD Primary Care Provider [phone] Encounter Details Date Type Department Care Team (Late st Contact Info) Description 03/29/2020 Telephone [place] [phone] Ophelia Martínez Social History Tobacco Use Types Packs/Day Years Used Date Smoking Tobacco: Never Smokeless Tobacco: Never Sex and Gender Information Value Date Recorded Sex Assigned at Not on file Gender Identity Not on file Sexual Orientation Not on file documented as of this encounter Miscellaneous Notes * Telephone Encounter - Ophelia Martínez - 03/29/2020 3:57 PM EDT RECALL REPORT DATE OF RECALL: 02/12/2020 PHONE CALL: 03/29/2020 LETTERS SENT : 03/29/2020 FOLLOW UP NEEDED: Echo/ov DIAGNOSIS : BAV,PFO PRODIVER: NB documented in this encounter Plan of Treatment Not on file documented as of this encounter Visit Diagnoses Not on filedocumented in this encounter Care Teams Returned Case Inspector Relationship Specialty Start Date End Date Robel Christianson MD [address] [place] [address] PCP - General 09/05/10 02/26/22 documented as of this encounter
--- OUTSIDE RECORDS SUMMARY | 2024-06-05 17:33 | XMS_ITS | Encounter Summary ---
[facility] [place] [address] Care Team Providers Care Singe Machine Operator Name Role Phone Robel Christianson MD Primary Care Provider [phone] Encounter Details Date Type Department Care Team (Late st Contact Info) Description 08/03/2015 Orders Only [place] [id number] Jaden Bird Social History Tobacco Use Types Packs/Day Years [...] on filedocumented in this encounter Care Teams Singe Machine Operator Relationship Specialty Start Date End Date Robel Christianson MD [address] [place] [address] [place] [address] PCP - General 09/05/10 02/26/22 documented as of this encounter
--- OUTSIDE RECORDS SUMMARY | 2024-06-05 17:33 | XMS_ITS | Clinical Summary ---
Author Organization [facility] Address [address] [place] [address] Care Team Providers Care Music Teacher Name Role Phone Robel Christianson MD Primary Care Provider [phone] Social History Tobacco Use Types Packs/Day Years Used Date Smoking Tobacco: Never Assessed Sex and Gender Information Value Date Recorded Sex Assigned at Not on file Gender Identity Not on file Sexual Orientation Not on file Plan of Treatment Health Maintenance Due Date Last Done Comments Hepatitis C Screen 2002 Hepatitis B Vaccine (1 of 3 - 19+ 3-dose series) 08/23 COVID-19 Vaccine ( season) 2023 Care Teams Music Teacher Relationship Specialty Start Date End Date Robel Christianson MD [address] [place] [id number] PCP - General 08/25/09
--- OUTSIDE RECORDS SUMMARY | 2024-06-05 17:33 | XMS_ITS | Encounter Summary ---
Author [facility] [place] [address] Care Team Providers Care Masking Machine Feeder Name Role Phone Robel Christianson MD Primary Care Provider [phone] Encounter Details Date Type Department Care Team (Latest Contact Info) Description 2015 9:55 AM EST - 2015 11:59 PM EST Hospital En[place] [address] Discharge Disposition: Home Social History Tobacco Use [...] on filedocumented in this encounter Care Teams Masking Machine Feeder Relationship Specialty Start Date End Date Robel Christianson MD [address] [place] [address] PCP - General 09/05/10 02/26/22 documented as of this encounter
--- OUTSIDE RECORDS SUMMARY | 2024-06-05 17:33 | XMS_ITS | Encounter Summary ---
Author Organization [facility] [place] [address] Care Team Providers Care Isotope Technician Name Role Phone Robel Christianson MD Primary Care Provider [phone] Encounter Details Date Type Department Care Team (Late st Contact Info) Description 10/22/2017 10:30 AM EST Office Visit [place] [phone] Eliseo Miller MD [facility] [place] [address] Vasovagal syncope; Congenital heart disease; Congenital aortic valve anomaly; PFO (patent foramen ovale) Social History Tobacco Use Types Packs/Day Years Used Date Smoking Tobacco: Never Smokeless Tobacco: Never Sex and Gender Information Value Date Recorded Sex Assigned at Not on file Gender Identity Not on file Sexual Orientation Not on file documented as of this encounter Last Filed Vital Signs Vital Sign Reading Time Taken Comments Blood Pressure 110/55 10/22/2017 10:39 AM EST Pulse 63 10/22/2017 10:39 AM EST Temperature - - Respiratory Rate 24 10/22/2017 10:3 9 AM EST Oxygen Saturation 100% 10/22/2017 10: 39 AM EST Inhaled Oxygen Concentration - - Weight 44.3 kg (97 lb 9.6 oz) 8 10:39 AM EST Height 167.6 cm (5' 6) 10/22/2017 10:3 9 AM EST Body Mass Index 15.75 10/22/2017 10:39 AM EST Body Mass Index Percentile 1.16% 10/22 10:39 AM EST Growth Chart: [facility] (Boys, 2-2 0 Years) documented in this encounter Patient Instructions * Patient Instructions* Eliseo Miller MD - 10/22/2017 10:30 AM EST Assessment: Sumit appears stable from the cardiovascular standpoint. He has a history of a very minimal aortic valve abnormality, and a patent foramen ovale. These are unassociated with his syncopal events. Sumit's evaluation today is entirely consistent with neurally mediated or vasovagal syncope. At this point, the episodes of syncope have been too infrequent to warrant medical management. Recommendations: No further evaluation at this time and no changes in his management. No limitations or restrictions in Sumit's activity. SBE precautions are not indicated based on [place] [employer] guidelines. Follow-up: 2 years as previously scheduled with echocardiogram at that time. TYPICAL/BENIGN SYNCOPE (FAINTING) What is syncope? Syncope (DJFL-[id number]-mt) is the medical word for fainting. It is a temporary loss of consciousness and muscle tone that occurs when not enough blood goes to the brain. What causes syncope? The common reason behind each fainting episode is low blood pressure getting to the brain. Many different situations can cause a decrease in blood pressure in the brain, but generally there is a brief period of either slowing of the heart rate and/or drop in blood pressure. Typical (or benign) faints occur at predictable times, and have a predictable pattern. After prolonged sitting or lying. After standing up or changing positions quickly. After a noxious stimulus (like blood draws, pain, stress, or other situational experience) Fainting spells might be worsened or more likely to happen: When dehydrated During illness After anesthesia After abruptly stopping vigorous exercise (such as the end of a race) During menstrual periods What are the symptoms of syncope? Symptoms of typical syncope fall into two categories. First, most people experience pre-syncope, which is the feeling that they are about to faint. These warning signs include dizziness, lightheadedness, sweating, and visual changes. These sensations usually occur immediately before fainting occurs, and one falls to the ground unconscious, which is the second category of symptoms. There is often enough warning so that your child will be able to sit or lie down before fainting. This can prevent injuries that may occur due to falling. Treatment & Care For typical syncope, I recommend the following: Recognize the warning signs for what they are: warnings that you might faint if something does not change. Respond. If you feel like you might pass out or have any warning signs, lie down (or at least sit) immediately in a safe place. Physical counter-pressure maneuvers can be used to abort a syncopal episode when symptoms begin. These include leg crossing, fist clenching and arm tensing. documented in this encounter Progress Notes * Eliseo Miller MD - 10/22/2017 10:30 AM EST Images from the original note were not included. Patient: Primary Care Provider: Requesting Provider: Sumit Simmons [address] [place] [phone] Robel Christianson MD [address] [address] Robel Christianson Md [address] [facility] [place] [address] (home) : 2000 Age/Gender: 17 y.o. male Sumit is a 17 y.o. old ( 2000) child seen in the Pediatric Cardiology Clinic at [facility] on 10/22/2017 for evaluation of syncope. Patient Active Problem List Diagnosis ??? Syncope 08-13-16 Had gone [id number]. Seated at dinner table and fell to the floor. LOC for ~ 1 minute. No seizure activity. 911 activated. C/o nausea in ambulance [place] better after eating in ER 08-13-16 EKG: sinus rhythm. Nonspecific QRS widening. EKG reviewed by phone with Dr Miller 09-24-17 Playing outside all afternoon. Came inside and was feeling unwell with cold hands. Laid down and then went to the bathroom to warm his hands in the sink. While standing at the sink, had witnessed LOC striking head. Unconscious for seconds to minutes. 09-24-17 CT (head): normal 09-24-17 EKG: normal per ER Provider 10-08-17 ZIO: mailed back to supplier per Mother ??? Cerebral palsy ??? Congenital aortic valve anomaly 11-24-10 ECHO: aortic valve appears bicommissural. small secundum atrial septal defect. Measures 3-4mm in diameter. Left to right shunting. No evidence of aortic valve stenosis. Trace aortic regurgitation 03-08-15 ECHO: Aortic valve appears normal. Trace aortic regurgitation No SBE precautions. No activity restrictions. Follow up 2019 ??? Intellectual disability ??? Hypotonia ??? Transient alteration of awareness ??? Developmental delay Language primarily ??? PFO (patent foramen ovale) Study Date: 03/08/2015 There is a tiny PFO with left to right shunting. There is no secundum ASD. Interim History: Sumit has had 2 episodes of syncope in the last 2 years. The episodes are described in the Problem List. With the more recent episode, Sumit reports feeling dizzy and sick to my stomach, and then passed out and hit his head on the floor. He does not remember visual changes, and denies associated chest pain or palpitations. Sumit has otherwise been a healthy child since the last visit with no symptoms referable to the cardiovascular system. Sumit has had no complaints of chest pain, dyspnea and palpitations. He has a good exercise tolerance but may have some difficulty keeping up with his peers. Sumit was seen in the ED after the recent syncopal event, and his evaluation there included an ECG that was felt to be concerning for cardiac enlargement. He also had a head CT, per mother because hehit his head. A Zio recorder was also placed at that time. Review of Systems: Negative for other relevant constitutional, respiratory, gastrointestinal, neurologic, endocrine, hematologic, immunologic, urinary, dermatologic, or musculoskeletal symptoms. Social History: Sumit is here today with his mother and maternal aunt. Sumit plays no sports. He has participated in snowshoeing for [employer]. Medications: No current outpatient prescriptions on file. No current facility-administered medications for this visit. Physical Exam: Vitals: 10/22/17 1039 BP: 110/55 BP Location (NBP): Right arm Pulse: 63 Resp: 24 SpO2: 100% Weight: 44.3 kg (97 lb 9.6 oz) Height: 167.6 cm (5' 6) 6 %ile based on CDC 2-20 Years [id number]-[id number] data using vitals from 10/22/2017. 35 %ile based on CDC2-20 Years [id number] data using vitals from 10/22/2017. Body mass index is 15.75 kg/(m^2). Sumit is a pleasant, thin young man in no distress. He seems to be a reliable historian, but his mother fills in some details. HEENT: No dysmorphic facial features; mucosa is pink and moist; sclera are not injected, gaze is conjugate Chest: Unlabored effort; clear to auscultation bilaterally; equal breath sounds. Cardiovascular: Regular rate and rhythm. Normal precordial activity. S1 normal. S2 normal. No systolic or diastolic murmur in the supine, sitting or standing position. No click, gallop or rub Abdomen: Soft. Non-tender and non-distended. No hepatosplenomegaly. Extremities: No deformities. Brachial and femoral pulses normal and non- discrepant. No clubbing, cyanosis or edema Neurological: Normal tone, strength, and response to tactile stimuli Skin: Normal appearance and turgor ECG: The electrocardiogram tracing obtained previously was personally reviewed and is normal. ZIO: 09/24 - normal recoding demonstrating sinus rhythm and rare ectopy. Assessment: Sumit appears stable from the cardiovascular standpoint. He has a history of a very minimal aortic valve abnormality, and a patent foramen ovale. These are unassociated with his syncopal events. Sumit's evaluation today is entirely consistent with neurally mediated or vasovagal syncope. At this point, the episodes of syncope have been too infrequent to warrant medical management. There is no indication for limitations or restrictions in Sumit's activity. Recommendations: No further evaluation at this time and no changes in his management. No limitations or restrictions in Sumit's activity. SBE precautions are not indicated based on [place] [employer] guidelines. Follow-up: 2 years as previously scheduled with echocardiogram at that time. TYPICAL/BENIGN SYNCOPE (FAINTING) What is syncope? Syncope (GBAW-dyfr-ah) is the medical word for fainting. It is a temporary loss of consciousness and muscle tone that occurs when not enough blood goes to the brain. What causes syncope? The common reason behind each fainting episode is low blood pressure getting to the brain. Many different situations can cause a decrease in blood pressure in the brain, but generally there is a brief period of either slowing of the heart rate and/or drop in blood pressure. Typical (or benign) faints occur at predictable times, and have a predictable pattern. After prolonged sitting or lying. After standing up or changing positions quickly. After a noxious stimulus (like blood draws, pain, stress, or other situational experience) Fainting spells might be worsened or more likely to happen: When dehydrated During illness After anesthesia After abruptly stopping vigorous exercise (such as the end of a race) During menstrual periods What are the symptoms of syncope? Symptoms of typical syncope fall into two categories. First, most people experience pre-syncope, which is the feeling that they are about to faint. These warning signs include dizziness, lightheadedness, sweating, and visual changes. These sensations usually occur immediately before fainting occurs, and one falls to the ground unconscious, which is the second category of symptoms. There is often enough warning so that your child will be able to sit or lie down before fainting. This can prevent injuries that may occur due to falling. Treatment & Care For typical syncope, I recommend the following: Recognize the warning signs for what they are: warnings that you might faint if something does not change. Respond. If you feel like you might pass out or have any warning signs, lie down (or at least sit) immediately in a safe place. Physical counter-pressure maneuvers can be used to abort a syncopal episode when symptoms begin. These include leg crossing, fist clenching and arm tensing. documented in this encounter Plan of Treatment Not on file documented as of this encounter Procedures Procedure Name Priority Date/Time Associated Diagnosis Comments ELECTRICAL TECH/PROJECT MANAGER SCAN 09/24/2017 12:00 AM EST documented in this encounter Results * SCAN DOC: ELECTRICAL TECH/PROJECT MANAGER (09/24/2017 12:00 AM EST) Anatomical Region Laterality Modality Other Narrative 09/24/2017 12:00 AM EST Ordered by an unspecified provider. Scanning Provider MEDIA MGR SCAN EXT O RDR/RSLT documented in this encounter Visit Diagnoses Diagnosis Vasovagal syncope Syncope and collapse Congenital heart disease Unspecified congenital anomaly of heart Congenital aortic valve anomaly Unspecified congenital anomaly of heart PFO (patent foramen ovale) Ostium secundum type atrial septal defect documented in this encounter Care Teams Isotope Technician Relationship Specialty Start Date End Date Robel Christianson MD [address] [place] [address] PCP - General 09/05/10 02/26/22 documented as of this encounter
--- OUTSIDE RECORDS SUMMARY | 2024-06-05 17:33 | XMS_ITS | Encounter Summary ---
Author Organization [facility] [place] [address] Care Team Providers Care Data Entry Assistant Name Role Phone Robel Christianson MD Primary Care Provider [phone] Encounter Details Date Type Department Care Team (Late st Contact Info) Description 11/24/2010 11:00 AM EST Follow-[place] [phone] Jasbir Farrar MD [facility] [place] [address] Discharge Disposition: Home Social History Tobacco Use [...] on filedocumented in this encounter Care Teams Data Entry Assistant Relationship Specialty Start Date End Date Robel Christianson MD [address] [address] PCP - General 09/05/10 02/26/22 documented as of this encounter
--- OUTSIDE RECORDS SUMMARY | 2024-06-05 17:33 | XMS_ITS | Referral Summary ---
Author Organization [facility] Address [address] [place] [address] Care Team Providers Care Bench Worker Apprentice Name Role Phone Robel Christianson MD Primary Care Provider [phone] Social History Tobacco Use Types Packs/Day Years Used Date Smoking Tobacco: Never Assessed Sex and Gender Information Value Date Recorded Sex Assigned at Not on file Gender Identity Not on file Sexual Orientation Not on file Plan of Treatment Not on file Care Teams Bench Worker Apprentice Relationship Specialty Start Date End Date Robel Christianson MD [address] [place] [address] PCP - General 08/25/09
--- OUTSIDE RECORDS SUMMARY | 2024-06-05 17:33 | XMS_ITS | Encounter Summary ---
[place] [address] Care Team Providers Care Survey Workers Supervisor Name Role Phone Robel Christianson MD Primary Care Provider [phone] Encounter Details Date Type Department Care Team (Late st Contact Info) Description 11/24/2010 10:00 AM EST - 11/24/2010 11:59 PM [facility] Encounter [place] [id number] Social History Tobacco Use Types Packs/Day Years Used Date Smoking Tobacco: Never Assessed Sex and Gender Information Value Date Recorded Sex Assigned at Not on file Gender Identity Not on file Sexual Orientation Not on file documented as of this encounter Plan of Treatment Not on file documented as of this encounter Visit Diagnoses Not on filedocumented in this encounter Care Teams Survey Workers Supervisor Relationship Specialty Start Date End Date Robel Christianson MD [address] [place] [address] PCP - General 09/05/10 02/26/22 documented as of this encounter
--- OUTSIDE RECORDS SUMMARY | 2024-06-05 17:33 | XMS_ITS | Encounter Summary ---
Author Organization [facility] [place] [address] Care Team Providers Care Filling Carrier Name Role Phone Kiersten Garcia MD Primary Care Provider [phone] Reason for Visit * Reason Comments Developmental Delay here with mom * Consultation (Routine) - Closed Specialty Diagnoses / Procedures Referred By Tabitha devlin Referred To Contact Child Neurology and Development Diagnoses Developmental delay Tawanda Davis MD [facility] [place] [address] [facility] [address] [place] [id number] Referral ID Status Reason Start Date Expiration Date V isits Requested Visits Authorized [id number] Closed Consult, Test & Treat 08/03/2015 08/02/2016 1 1 Encounter Details Date Type Department Care Team (Late st Contact Info) Description 12/07/2015 11:00 AM EST Office Visit Child Development at [place] [phone] Tawanda Davis MD [facility] [place] [address] Ryan Esposito MD [facility] [place] [address] Hypotonia; Intellectual disability; Cerebral palsy Social History Tobacco Use Types Packs/Day Years Used Date Smoking Tobacco: Never Smokeless Tobacco: Never Sex and Gender Information Value Date Recorded Sex Assigned at Not on file Gender Identity Not on file Sexual Orientation Not on file documented as of this encounter Last Filed Vital Signs Vital Sign Reading Time Taken Comments Blood Pressure 99/58 12/07/2015 10:57 AM EST Pulse 72 12/07/2015 10:57 AM EST Temperature - - Respiratory Rate - - Oxygen Saturation - - Inhaled Oxygen Concentration - - Weight 30.6 kg (67 lb 6.4 oz) 6 10:57 AM EST Height 149.9 cm (4' 11) 12/07/2015 10: 57 AM EST Head Circumference 55.9 cm 12/07/2015 10 :57 AM EST Body Mass Index 13.61 12/07/2015 10:57 AM EST Body Mass Index Percentile 0.03% 12/07 10:57 AM EST Growth Chart: [facility] (Boys, 2-2 0 Years) documented in this encounter Patient Instructions * Patient Instructions* Ryan Esposito MD - 12/07/2015 6:32 PM EST DEVELOPMENTAL COGNITIVE NEUROLOGICAL RECOMMENDATIONS: Given Sumit's diagnosis of Intellectual Disability the school is mandated to provide a comprehensive intensive individualized education plan challenging all aspects of his cognitive development to beutilized in a functional/vocational applied strategy incorporating appropriate supports in the areaof communication, and comprehensive speech and language supports. In the future, Sumit will benefitfrom a full neuropsychological assessment to develop a neuro cognitive profile of both his strengths and weaknesses in order to best habilitate him. The abridged neuropsych assessment confirms his diagnosis of Intellectual Disability, but was not considered a complete [facility] would further understand how to best play into his strength. It would behoove the school to perform a more comprehensive speech and language evaluation supporting not only his articulation difficulties, but his expressive, receptive and pragmatic language, particularly language organization. Given his Hypotonia and his delayed motor development, Sumit has the diagnosis of Cerebral Palsy. Therefore, a secondary categorization should be added of Other Health Impairment due to his Cerebral Palsy diagnoses. He is therefore entitled to a full assessment of his entire neuromotor system as it affects his performance in school regarding the mechanical aspects of his speech, his functional fine motor skills through occupational therapy and functional gross motor skills through physical therapy with appropriate adaptive physical education. Due to the regression that occurs over prolonged periods of his lack of summer school he should easily qualify for Extended School Year (ESY) services for the summer. His family should be meeting with the IEP team for each report card added as an addendum to the accommodations section of his IEP. A BULLY WATCH should be in effect. Sumit, diagnosed as Intellectual Disability and Cerebral Palsy, is an easy target for bullying, misdirection, mistreatment and abuse. It is absolutely mandatory that they are monitored in every educational environment so that bullying does not occur. Although he is supposed to be monitored during the transition from the school to his utility bill collector program. Any degradation should be reported to the merchandise flow associate. Although his Intellectual Disability is most probably due to his association with Cerebral Palsy, Iwould suggest that his retail service technician obtain a Fragile X DNA probe. I would like to see Sumit in followup in approximately 6 months. The family should bring any and all interim testing and evaluations along with an up-to-date IEP to that visit for Dr. Esposito to review.In the meantime the family can reach the developmental cognitive neurology staff at [phone]. PEDIATRIC NEUROPSYCHOLOGICALSUMMARY AND RECOMMENDATIONS: Sumit is a very sweet 9-year-old boy who was seen as part of an interdisciplinary evaluation in [facility]) on 12/06/2015 and 12/07/2015 due to a history of developmental delay. Standardized testing was administered, a parent interview was conducted, parent report forms were completed, and Sumit???s behavior was observed over the course of several hours in order to gain additional information regarding his overall functioning. Please see Dr. Esposito???s report for more information obtained during this evaluation as well as additional treatment recommendations. Sumit???s level of intellectual functioning was in the extremely low range; however, there was variability among composite scores. Specifically, Sumit???s verbal comprehension abilities were in the borderline range; nonverbal and spatial skills were significantly less favorable and fell within the extremely low range. Additional cognitive testing revealed significant delays in verbal learning andvisual-motor integration. On interview, Sumit???s mother endorsed considerable learning, functional, and social delays. Furthermore, his adaptive functioning was reported to be in the extremely low range, which indicates that he is behind his same-aged peers in skills such as communication, motor skills, and skills of daily living. Positively, Sumit exhibited relative strengths in word reading, phonetic decoding, and receptive and expressive language at the one-word level, as scores across these domains ranged from the average to low average range. In general, results from this evaluation areconsistent with results from evaluations completed in 2009 and 2012; however, Sumit did display improved performance on verbal comprehension tasks when compared to prior evaluations. Sumit is currently receiving Special Education Services under the primary eligibility of Intellectual Disability, which is appropriate given his history and current presentation. However, we are encouraged by the improvement in his verbal comprehension skills, and recommend an updated Speech and Language evaluation in order to gain more information about his functional language abilities. We alsosuggest an Occupational Therapy evaluation, given Sumit???s history of significant fine and gross motor delay (please see Dr. Esposito???s report for more information) as well as fine motor difficulties observed during this evaluation. He may benefit greatly from consistent school-based Occupational Therapy services. Furthermore, Sumit???s cognitive status should be closely monitored, and he will likely benefit from a comprehensive neuropsychological evaluation in approximately 1-2 years for monitoring purposes and to assist in future planning. It is important to note that despite improvements Sumit exhibited during this evaluation, there is documentation of an academic decline over the course of this school year. As such, we recommend moreintensive Special Education Services, including increased (daily) individualized instruction acrossall academic areas. Sumit should also qualify for and receive Extended School Year Services for additional exposure to academic material and access to Related Services over the summer. Finally, it will be important that school staff closely supervise Sumit???s transitions between classes as well associal interactions, given his history of leaving school grounds and of being teased and bullied. As with any educational plan, it will be essential that all of Sumit???s educators are knowledgeable about the services outlined on his IEP in order to ensure that he is receiving these supports consistently throughout the day. documented in this encounter Progress Notes * Ryan Esposito MD - 12/07/2015 6:31 PM EST We are seeing a Sumit Simmons who is a 15 y.o. male patient of KIERSTEN GARCIA MDin our Developmental Cognitive Neurological Consultative Services in the Section of the Child Neurology at the [facility]. The total time of this visit was 120 minutes occurring between 11:00 a.m. and 1:[address] Ryan Esposito MD, developmental cognitive neurologist and Dr. Eleuterio Wright PsyD. pediatric neuropsychologist. The total time of the medical component was 120 of which 80 mins including all team members was spent in direct [id number] counseling and discussion with Sumit's mother regarding his diagnoses of Intellectual Disability for which willfollow require a comprehensive intensive individualized education plan challenging all aspects of his cognitive development to be utilized in a functional/vocational applied strategy incorporating appropriate supports in the area of communication, and comprehensive speech and language supports. Along with his Hypotonia and his delayed motor development supporting the diagnosis of Cerebral Palsy for which his entire neuro motor system should be assessed in order to receive functional occupational therapy and functional physical therapy with adaptive physical education. Furthermore, due to the regression that occurs over prolonged periods of no school he should easily qualify for Extended School Year (ESY) services for the summer. Sumit presents with his mother whose primary concern, as he is approaching the teenage transitionalyears, is finding Sumit???s cognitive potential capabilities with regards to his achievement to then provide recommendations to the school in developing his skills regarding his future educational direction. According to his mother, Sumit's gestation was complicated by placental abruption resultingin hypoperfusion of his brain resulting in global developmental delays. He did not sit up on his own until 11 months of age, begin to walk until 19 months of age, was speaking in single words in a gibberish fashion until 5 years of age when he was understood, and unable to use a spoon appropriatelyuntil 5-6 years of age. He qualified for early intervention services at some point between 16 and 18 months of age due to his global developmental delay. When he entered preschool he had an individualized education plan with speech language and occupational therapy. This degree of gross motor delaywithout apparent etiology qualifies him for the diagnosis of Cerebral Palsy and a comprehensive program to address all aspects of his motor function that effects speech production, functional fine and gross motor skills and places him at risk for other developmental and learning disabilities, his Intellectual Disability, as well as epilepsy. At present, Sumit is a sixth grader at the [employer] in [place], [place] where he receives special education services through an Individualized Education Plan (IEP) under the primary disability on Intellectual Disability and receives special education, small group instruction in math and language arts 5 days a week for 60 minutes each, speech therapy 2 times a week for 20 minutes each, and para-educator support with IEP goals that focus on the areas of reading comprehension, math calculation, concepts and problem solving, written expression and communication skills. According to his mother, she meets with the IEP team twice a year at best which should be changed to each report ca rd, his categorization should include include the addition of Other Health Impairment due to his Cerebral Palsy diagnoses. He is inexcusably bullied at school which should be held to a 0 tolerance level. Although he is supposed to be monitored during the transition from the school to his after school program, he decided to leave school and walk to his father's place of work approximately 1 mile away from the school. The utility bill collector program was not aware of his being absent which is in full violation and nor did the school know of his disappearance. According to his mother, in the fall after receiving no extended school year services he loses many of his skills. With the categorization of Int ellectual Disability he should automatically qualify for ESY. As part of his triennial school testing, Sumit was given the following test and received the indicated scores in 12/2013: WISC-IV (Ivone Intelligence Scale for Children-IV) Verbal Comprehension?55?Extremely Low ?Similarities? 3 ?Vocabulary? 1 Information? 3 Perceptual Reasoning ?55?Extremely Low ?Block Design? 3 ?Picture Concepts? 3 ?Matrix Reasoning? 2 Working Memory?50?Extremely Low ?Digit Span? 1 ?Letter/# Sequence? 1 Processing Speed?50?Extremely Low ?Coding ? 1 ?Symbol Search? 1 Full Scale IQ?43?Extrem luis Low Catalina Tyrone-III Achievement?? Test ?AGE-BASED ?GRADE-BASED ?? Basic Reading Skills?SS 80?Age 8.4Low Average?SS 86?Gr.?? 3.0?? Low Average ?Letter/Word Ident.?SS 77?Age 8.4 Borderline?SS 85?Gr.?? 3.0?? Low Average ?Word Attack?SS 87?Age 8.3 Low Average?SS 91?Gr. 2.9? Average Reading Comprehension?SS 46?Age 6.8 Extremely Low?SS 46?Gr.1.4? Extremely Low ?Passage Comp.?SS 66?Age 7.2 Extremely Low?SS 75?Gr. 1.9? Borderline ?Reading Vocabulary?SS 41?Age 6.0 Extremely Low?SS 39?Gr. K.7? Extremely Low Mathematics Calculation?SS 25?Age 6.4 Extremely Low?SS 28?Gr. 1.0? Extremely Low ?Calculation?SS 32 ??Age 6.5 Extremely Low?SS 37?Gr. 1.1? Extremely Low ?Math Fluency?SS 49?Age 5.1 Extremely Low?SS 51?Gr. <K.1Extremely Low Math Reasoning?SS 48?Age 6.4 Extremely Low?SS 54?Gr. 1.0? Extremely Low ?Applied Problems?SS 45?Age 5.9 Extremely Low?SS 50?Gr. K.5?? Extremely Low ?Quantitative ConceptsSS 56?Age 6.11Extremely Low?SS 65?Gr. 1.7? Extremely Low Written Expression?SS 43?Age 6.9 Extremely Low?SS 52?Gr. 1.4? Extremely Low ?Writing Fluency?SS 69?Age 7.7 Extremely Low?SS 72 ??Gr. 2.3? Borderline ?Writing Samples?SS 34?Age<6.7Extremely Low?SS 42?Gr. <1.3 Extremely Low Adaptive Behavior Assessment System-II (ABAS-II)-only enough information was obtained for these areas on the home survey, none available for school portion. ?General Adaptive Composite?? 40 ?Conceptual?48 ?Social? 53 ?Practical? 40 *adaptive data from the home reveals significant amount of extremely low adaptive deficit across all areas assessed.* CELF-4 Composite Scores Core Language?SS 48 Receptive Language?SS 52 Expressive Language?SS 55 Language Content?SS 58 Language Memory?SS 48 [place] Picture Vocabulary Test (PPVT)? SS 93?? 32%ile In 03/2010, Sumit received the following test scores: WISC -IV Verbal Comprehension Index?SS 59 ??Well below Average Perceptual Reasoning?SS 71?Borderline Working Memory?SS 54 ??Well Below Average Processing Speed?SS 70?Borderline Full Scale IQ ?SS 56 ??Well Below Average BASC-2 - Home: overall?? behavioral systems index, internalizing and externalizing problems were within normal limits; Withdrawal and Attention problems were in the clinically significant range, Adaptive scale within the marginally significant range, functional communication in the statistically sig nificant range; School: BSI, eternalizing and internalizing problems in the normal range; adaptive scale, social skills, leadership and functional communication in the borderline range. ABAS-II Conceptual ?SS 78?7%ile Social? SS 91?27%ile Practical? SS 89?23%ile General Ability ??Composite?SS 82?12%ile Low Average Range On physical and neurologic exam, Sumit is normocephalic with no cranial nor carotids bruits on auscultation. Thyroid is not full to palpation. On funduscopic exam, discs are sharp bilaterally with noevidence of papilledema nor abnormal retinal pigmentation. Heart reveals a regular rate and rhythm without murmur. Lungs are clear to auscultation. Abdomen is soft, nontender, with no hepatosplenomegaly on palpation. There are no neurocutaneous stigmata both on visual inspection as well as Wood's lamp examination. The spine is of normal curvature. Pupils are equal, round and reactive to light andaccommodation. There are no visual field cuts to confrontation. Extraocular movements are fully inta ct without nystagmus. Symmetrical facial movements. Hearing is grossly intact to coarse finger rub bilaterally. Normal strength of sternocleidomastoid, trapezius and masticatory muscles. Tongue and uvula are midline. Sumit's speech is dysarthric and simple in structure. Sensory exam is intact to light touch in the upper and lower extremities bilaterally. On motor exam, Sumit has normal bulk and strength with diffuse hypotonicity. The deep tendon reflexes are 1+ to 2+ throughout with bilaterallydowngoing toes. Sumit has a normal-based hypotonic gait. NEUROPSYCHOLOGICAL SCREENING REPORT REASON FOR REFERRAL Sumit is a 15-year-old male with a history of developmental delays. [facility] on 12/06/2015 and 12/07/2015. A neuropsychological screening wasrequested as part of his comprehensive assessment in order to obtain specific information regardinghis current cognitive functioning.? Please also see the report of Ryan Esposito MD for the complete assessment. Sumit is currently in the 6th grade at [employer] where he receives Special Education Services under the primary eligibility of Intellectual Disability. He has goals within his Individualized Education Program (IEP) to address reading comprehension, math, writing, and communication. Special Education Services include weekly case management services and small group instruction with a ethnic origins teacher throughout the day. He receives group Speech Therapy twice per week for 20 minutes as a Related Service. Sumit does not currently qualify for Extended School Year services. Evenwith the provision of these academic supports, Sumit has not displayed adequate gains at school. During this evaluation, his mother provided us with documentation of an academic decline that was recently given to her by the school. She also stated that several of Sumit???s teachers are unaware thatesme is has an IEP and there have been problems with supervision (e.g., he once left school and walked to his father???s work without anyone noticing), as well as teasing and bullying. Positively, Sumit was described by his teachers at a ???sweet, well-liked boy?? who is ???usually attentive and participates in groups and morning meetings.?? He is reportedly very well-behaved at school and home.?? PREVIOUS EVALUATIONS Speech Therapy Evaluation, [employer], 12/2013. Sumit obtained the following CELF-4 composite standard scores: Core Language=48, Receptive Language=52, Expressive Language=55, Language Content=58, Language Memory=48. He obtained a standard score=93 on the PPVT-4. [facility] Sumit obtained the following WISC-IV index standard scores: Full Scale IQ=43, Verbal Composite=55, Perceptual Reasoning=55, Working Memory=50, Processing Speed=50. The following subtest scaled scores were reported: Similarities=3, Vocabulary=1, Information=3, Block Design=3, Picture Concepts=3, Matrix Reasoning=2, Digit Span=1, Letter-Number Sequence=1, Coding=1, Symbol Search=1. He obtained the following subtest standard scores on the WJ-III: Letter-Word Identification=77, Word Attack=87, Passage Comprehension=66, Reading Vocabulary=41, Calculation=32, Math Fluency=49, Applied Problems=45, Quantitative Concepts=56, Writing Fluenc y=69, Writing Samples=34. The following ABAS-II domain standard scores were reported: General Adaptive Composite=40, Conceptual=48, Social=53, Practical=40. Developmental Assessment, Child Development Clinic: [facility], 03/2010. The following WISC-IV index standard scores were reported: Verbal Comprehension=59, Perceptual Reasoning=71, Working Memory=54, Processing Speed=70, Full Scale IQ=56. The following subtest standard scores werereported: Similarities=3, Vocabulary=4, Comprehension=2, Information=2, Block Design=5, Picture Concepts=5, Matrix Reasoning=6, Digit Span=2, Letter-Number Sequencing=2, Coding=3, Symbol Search=6. The following ABAS-2 domain standard scores were reported: General Adaptive Composite=82, Conceptual=78, Social=91, Practical=89. TESTS AND PROCEDURES ADMINISTERED General: Review of Records General Intellectual: Differential Abilities Scale, 2nd Edition (ROBERTO-II) Academic Screening: Ivone Individual Achievement Test, 3rd Edition (WIAT-III) Language: Expressive One Word Vocabulary Test (EOWPVT) [place] Picture Vocabulary Test, 4th Edition (PPVT) Memory: Wide Range Assessment of Memory and Learning, 2nd Edition (WRAML2) Fine Motor Functions Screening: [facility] Developmental Test of Visual-Motor Integration, 6th Ed. (VMI) Behavioral Ratings Achenbach Behavior Checklists (CBCL) Adaptive Behavior Assessment System, 2nd Edition (ABAS-II) BEHAVIORAL OBSERVATIONS Sumit arrived to the testing session accompanied by his mother.?? He appeared smaller than his chronological age; grooming and dress were appropriate.?? Upon informal observation, gross motor abilities were intact. He exhibited more difficulty on tasks with high fine motor demand (e.g., drawing tasks). No hearing or vision concerns were reported or observed. Sumit???s demeanor throughout the evaluation was compliant and cooperative. Eye contact was well-modulated and Sumit was able to maintain an appropriate reciprocal conversation with the examiner. He spontaneously offered information a number of times for the examiner???s benefit, including information about [employer] movies and his dogs. In regard to speech and language, Sumit displayed adequate articulation and intonation; however, he appeared to have word retrieval difficulties. Specifically,on naming tasks, Sumit frequently stated, ???I know what that is!?? yet had difficulty coming up with the correct word. There were also considerable delays before Sumit provided responses to question s, and the majority of the answers he provided were short in length (e.g., 3-4 word phrases). No outward signs of hyperactivity were observed; however, he did exhibit some signs of inattention (e.g.,frequently staring into space). Overall, Sumit appeared hardworking and gave no indication that he was not putting forth good effort on all assigned tasks. Thus, the following results are considered to be an accurate estimate of his current level of intellectual and cognitive functioning.? Thank you for referring Sumit for a neuropsychological evaluation. Please contact us if you have any questions.?? Zulma Green Psy.D., Postdoctoral Fellow?? Eleuterio Wright Psy.D., MBA, Director, Pediatric Neuropsychological Services Clinical Neuropsychologist [place] Licensed Psychologist #[id number] ?? This report was prepared by Zulma Green Psy.D., Postdoctoral Fellow in Pediatric Neuropsychology under the supervision of Eleuterio Wright Psy.D. DATA TABLES DESCRIPTOR?? Percentile Rank?? Very Superior?? 98 and above?? Superior?? 91 to 97?? High Average?? 75 to 90?? Average?? 25 to 74?? Low Average?? 10 to 24?? Borderline?? 2 to 9?? Extremely Low?? < 2?? NOTES:? Standard scores (SS) have means of 100, and standard deviations of ?? 15;?? Scaled scores (ss) have a mean of 10, and standard deviations of ?? 3.?? T-Scores have means of 50, and standard deviations of ?? 10; ?? Z-scores have means of 0, and standard deviations of ?? 1.?? ROBERTO-II Composite Scores?? Raw Score?? Standard Score?? Percentile?? Verbal?? --?? 80?? 9?? Nonverbal?? --?? 64?? 1?? Spatial?? --?? 67?? 1?? General Conceptual Ability?? --?? 67?? 1? ROBERTO-II Subtest Scores?? Raw Score?? T-Score?? Percentile?? Verbal? Word Definitions?? 104?? 39?? 14?? Verbal Similarities ?? 103?? 37?? 10?? Nonverbal? Matrices?? 72?? 30?? 2?? Sequential & Quantitative Reasoning?? 71?? 26?? 1?? Spatial? Pattern Construction?? 198?? 33?? 4?? Recall of Design?? 70?? 28?? 1? Beery VMI?? Raw Score?? Standard Score?? Percentile?? VMI?? 15?? 46?? <1? WIAT-III?? Raw Score?? Standard Score?? Percentile?? Word Reading ?? 44?? 87?? 19?? Pseudoword Decoding?? 29?? 92?? 30? EOWPVT?? Raw Score?? Standard Score?? Percentile? 95?? 83?? 13? PPVT-4?? Raw Score?? Standard Score?? Percentile? 156?? 88?? 21 ?? WRAML2?? Raw Score?? Standard Score?? Percentile?? Verbal Learning Total?? 15?? 3?? <1?? Verbal Learning Delay?? 6?? 7?? 16?? Recognition ?? 28?? 4?? 2? ABAS-II?? Raw score?? Standard Score?? Percentile?? General Adaptive Composite (GAC)?? 26?? 57?? <1?? Conceptual?? 10?? 63?? 1?? Social?? 10?? 75?? 5?? Practical?? 6?? 44?? <1?? ABAS subscales?? Raw Score?? Scaled Score?? Percentile?? Communication?? 55?? 6?? 9?? Community?? 28?? 2?? <1?? Functional Academics?? 35?? 3?? 1?? Home Living?? 34?? 1?? <1?? Health and Safety?? 44?? 2?? <1?? Leisure?? 45?? 6?? 9?? Self-Care?? 49?? 1?? <1?? Self-Direction?? 34?? 1?? <1?? Social?? 51?? 4?? 2?? CBCL Internalizing Problems Externalizing Problems Total Problems Syndrome Scales Anxious/Depressed Withdrawn/Depressed Somatic Complaints Social Problems Thought Problems Attention Problems Rule-Breaking Behavior Aggressive Behavior *indicates borderline clinical elevation indicates clinical elevation?? Parent T-Score 59 58 60* 54 63 58 63 50 69* 64 52?? Percentile 81 79 84 65 90 79 90 <50 97 52 58?? documented in this encounter Plan of Treatment Scheduled Referrals Name Type Priority Associated Diagnoses Order Schedule Referral to Child Development Outpatient Referral Routine Developmental delay Ordered: 08/03/2015 documented as of this encounter Visit Diagnoses Diagnosis Hypotonia Lack of coordination Intellectual disability Unspecified intellectual disabilities Cerebral palsy Infantile cerebral palsy, unspecified documented in this encounter Care Teams Filling Carrier Relationship Specialty Start Date End Date Kiersten Garcia MD [address] [place] [address] PCP - General 09/05/10 02/26/22 documented as of this encounter
--- OUTSIDE RECORDS SUMMARY | 2024-06-05 17:33 | XMS_ITS | Encounter Summary ---
[facility] Organization [facility] [place] [address] Care Team Providers Care Assistant To The Ceo Name Role Phone Robel Christianson MD Primary Care Provider [phone] Reason for Referral * Diagnostic Test (Routine) - Closed Specialty Diagnoses / Procedures Referred By Contac t Referred To Contact Radiology Diagnoses Developmental delay Procedures MRI Brain WO Contrast Tawanda Davis MD [facility] DR PEDIATRIC [place] [address] [place] [address] Referral ID Status Reason Start Date Expiration Date V isits Requested Visits Authorized [id number] Closed Specialty Service Requested 08/03/2015 11/01/2015 1 1 Reason for Visit * Diagnostic Test (Routine) - Closed Specialty Diagnoses / Procedures Referred By Contcarmen devlin Referred To Contact Radiology Diagnoses Developmental delay Procedures MRI Brain WO Contrast Tawanda Davis MD [facility] PEDIATRIC [place] [address] [place] [address] Referral ID Status Reason Start Date Expiration Date V isits Requested Visits Authorized [id number] Closed Specialty Service Requested 08/03/2015 11/01/2015 1 1 Encounter Details Date Type Department Care Team (Latest Contact Info) Description 08/07/2015 10:51 AM EDT - 08/07/2015 11:59 PM EDT Hospital [place] [address] Tawanda Davis MD [facility] [place] [address] Developmental delay Discharge Disposition: Home Social History Tobacco Use [...] Procedure Name Priority Date/Time Associated Diagnosis Comments MRI BRAIN WO CONTRAST Routine 08/07/2015 11:28 AM EDT Developmental delay documented in this encounter Results * MRI Brain WO Contrast (08/07/2015 11:28 AM EDT) Anatomical Region Laterality Modality Head Magnetic Resonan ce Impressions 08/07/2015 12:00 PM EDT IMPRESSION: Negative brain MRI. Narrative 08/07/2015 12:00 PM EDT EXAMINATION: MRI BRAIN WO CONTRAST CLINICAL HISTORY: left hyper-reflexia, ??developmental delay. TECHNIQUE: MR the brain performed without the use of intravenous contrast. COMPARISON: None FINDINGS: The ventricles are normal in size and contour. Cerebral parenchyma is normally formed, and is normal in signal. There is no intracranial mass, mass effect, or shift. Diffusion images are normal. Posterior fossa, and the craniocervical junction are normal. Skull base, and pituitary are normal. Procedure Note Ryan Lux MD - 08/07/2015 EXAMINATION: MRI BRAIN WO CONTRAST CLINICAL HISTORY: left hyper-reflexia, developmental delay. TECHNIQUE: MR the brain performed without the use of intravenouscontrast. COMPARISON: None FINDINGS: The ventricles are normal in size and contour. Cerebralparenchyma is normally formed, and is normal in signal. There is no intracranial mass,mass effect, or shift. Diffusion images are normal. Posterior fossa, and the craniocervical junction are normal. Skull base, and pituitary arenormal. IMPRESSION IMPRESSION: Negative brain MRI. Tawanda Davis MD IM MRI ORDERABLES documented in this encounter Visit Diagnoses Diagnosis Developmental delay Lack of normal physiological development, unspecified documented in this encounter Care Teams Assistant To The Ceo Relationship Specialty Start Date [place] [address] PCP - General 09/05/10 02/26/22 documented as of this encounter
--- OUTSIDE RECORDS SUMMARY | 2024-06-05 17:33 | XMS_ITS | Encounter Summary ---
Author Organization [facility] Address [address] [place] [address] Care Team Providers Care Computer Project Manager Name Role Phone Kiersten Christianson MD Primary Care Provider [phone] Encounter Details Date Type Department Care Team ([facility] st Contact Info) Description 09/22/2007 Results Only [facility] Pediatric Genetics - [address] [address] Bipin Hill MD [address] [place] [address] Social History Tobacco Use Types Packs/Day Years Used Date Smoking Tobacco: Never Assessed Sex and Gender Information Value Date Recorded Sex Assigned at Not on file Gender Identity Not on file Sexual Orientation Not on file documented as of this encounter Plan of Treatment Not on file documented as of this encounter Procedures Procedure Name Priority Date/Time Associated Diagnosis Comments FRAGILE X SYNDROME, MOLECULAR ANALYSIS Routine 09/22/2007 16:03 EST 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 FMR1 (Fragile X Mental Retardation 1) gene. ? [facility] Method (Note) Southern blot and PCR-based assays are used to determine the ? size and methylation status of the CGG repeat within the ? FMR1 gene. ??The Southern blot assay utilizes the DNA probe ? StB12.3 and an Eco RI/Nru I double digest. The precision of ? the reported number of CGG repeats is estimated to be within ? +/-5%. ? Normal: 5-44 CGG repeats ? Intermediate (Rao Zone): 45-58 CGG repeats ? Premutation: 59-200 CGG repeats ? Full mutation: >200 CGG repeats ? [facility] Result-FragX DNA CGG repeat: 29(Note) Methylation status: Normal ? Final result: Normal ? [facility] Interpretation (Note) These results are NOT consistent with Fragile X syndrome. ? Results obtained by the methods described detect >99% of ? patients affected with Fragile X. Rarely, individuals with ? Fragile X syndrome may have a non expansion type mutation ? (example: point mutation) not detected by this assay. ? Because some chromosome abnormalities may have overlapping ? clinical features with Fragile X syndrome, a standard ? chromosome study is recommended. ??If one has already been ? performed, please refer to that separate report for ? details. ? A genetic consult may be of benefit. ? CAUTIONS: ? Test results should be interpreted in context of clinical ? findings, family history, and other laboratory data. ? Misinterpretatio n of ? results may occur if the information provided is inaccurate ? or incomplete. ? Rare polymorphisms exist that could lead to false negative ? or positive results. ??If results obtained do not match the ? clinical findings, additional testing should be considered. ? Bone marrow transplants from allogenic donors will interfere ? with testing. Call [facility] for ? instructions for testing patients who have received a bone ? marrow transplant. ? [facility] Reviewed By Lelia Weaver PhD(Note) Hermilo Rivera Jr., PhD ? [facility] Release Date 04 Oct 2007 10:51 Performed or Referred by: [facility] Dpt of Lab Med and Path, [address] ?? , [place] [address], Lab Dir: MD [facility] Briceño III 09/22/2007 16:0 3 EST 09/22/2007 16:05 EST Bipin Hill MD CHEMISTRY & BLOOD GAS ORDERABLES Performing Organization Address 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 Co de Phone Number [facility] [address] [place] [address] * CYTOGENETICS (09/22/2007 0:00 EST) Pathology Report: CYTOGENETICS REPORT Reports generated via electronic interface contain original data; however they are lacking the format of the original report. Caution should be taken when reading/interpreti ng unformatted reports. Name: ? SUMIT LIN ? Accession #: ? [id number] : ? 2000 (Age: 7) ??M ?Collect Date: ? 09/22/2007 Location: ? [facility] ? Receive Date: ? 09/23/2007 Provider: ? BIPIN HILL MD Copy to: ?KIERSTEN SAMAYOA MD ? INTERPRETATION: ? Normal male karyotype. ??No deletion or duplication of the 22q11.2 region by FISH. ? Document reviewed and electronically signed by: ? ANDREW SAMAYOA MD ? Report Date: ??10/15/2007 16:51 CLINICAL HISTORY: ? 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 SPECIMEN: ? Peripheral Blood ?? TEST PERFORMED: ? G-banded Karyotype; ??Metaphase FISH with Vysis probe kit to detect the 22q11.2 region associated with DiGeorge/VCFS ?? REPORT: ? No. Cells Counted: ??20 No. Cells Analyzed: ??9 No. Cells Karyotyped: ??5 Band Resolution: ??550 ?Number of Cells Evaluated by FISH: ??Metaphase: 10 ? Interphase: 100 KARYOTYPE: ? 46,XY.janet 22q11(TUPLE 1x2) ?? COMMENT: ? FISH cut-off 10%. This test was developed and its performance characteristics determined by [facility] as required by the CLIA' 88 regulations. ??It has not been cleared or approved for specific uses by the U.S. FDA. ??The FDA has determined that such clearance or approval is not necessary. ??This test is used for clinical purposes. ??It should not be regarded as investigational or research. ??Pursuant to the requirements of CLIA' 88, this laboratory has established and verified the test' s accuracy and precision. ?? End of Report [facility] 09/22/2007 09/23/2007 9:5 9 EST Bipin Hill MD PATHOLOGY ORDERABL ES [facility] [address] [place] [address] documented in this encounter Visit Diagnoses Not on filedocumented in this encounter Care Teams Computer Project Manager Relationship Specialty Start Date End Date Kiersten Christianson MD [address] [place] [address] PCP - General 08/25/09 documented as of this encounter
--- OUTSIDE RECORDS SUMMARY | 2024-06-05 17:33 | XMS_ITS | Encounter Summary ---
Author Organization [facility] [place] [address] Care Team Providers Care Strapper Operator Name Role Phone Robel Christianson MD Primary Care Provider [phone] Reason for Visit * Reason Comments Developmental Delay [facility] Encounter Details Date Type Department Care Team (Late st Contact Info) Description 12/06/2015 1:00 PM EST Office Visit Child Development at [facility] [place] [address] Eleuterio Wright [facility] [place] [address] Intellectual disability Social History Tobacco Use Types Packs/Day Years Used Date Smoking Tobacco: Never Smokeless Tobacco: Never Sex and Gender Information Value Date Recorded Sex Assigned at Not on file Gender Identity Not on file Sexual Orientation Not on file documented as of this encounter Progress Notes * Eleuterio Wright PsyD - 12/13/2015 8:00 AM EST Name: Sumit Simmons ID#: [id number] Date of : 2000 Age: 15 years, 3 months School: [employer] Current Grade: 6th Date of Evaluation: 12/06/2015 Handedness: Right Referred by: Tawanda Davis MD NEURODEVELOPMENT, NEUROPSYCHOLOGY, AND PSYCHIATRIC CLINIC NEUROPSYCHOLOGICAL SCREENING REPORT REASON FOR REFERRAL Sumit is a 15-year-old male with a history of developmental delays. He was seen in the Neurodevelopment, Neuropsychology, and Psychiatry Clinic ([facility]) on 12/06/2015 and 12/07/2015. A neuropsychologicalscreening was requested as part of his comprehensive assessment in order to obtain specific information regarding his current cognitive functioning. Please also see the report of Ryan Esposito MD forthe complete assessment. Sumit is currently in the 6th grade at [employer] where he receives Special Education Services under the primary eligibility of Intellectual Disability. He has goals within his Individualized Education Program (IEP) to address reading comprehension, math, writing, and communication. Special Education Services include weekly case management services and small group instruction with a organic chemistry teacher throughout the day. He receives group [...] is reportedly very well-behaved at school and home. PREVIOUS EVALUATIONS Speech Therapy Evaluation, [employer], 12/2013. Sumit obtained the following CELF-4 composite standard scores: Core Language=48, Receptive Language=52, Expressive Language=55, Language Content=58, Language Memory=48. He obtained a standard score=93 on the PPVT-4. Psychoeducational Evaluation, [facility], 12/2013. Sumit obtained the following WISC-IV index [...] Social=53, Practical=40. Developmental Assessment, Child Development Clinic: [facility], 03/2010. The following WISC-IV index standard scores [...] Language: Expressive One Word Vocabulary Test (EOWPVT) [place] Picture Vocabulary Test, 4th Edition (PPVT) Memory: Wide Range Assessment of Memory and Learning, 2nd Edition (WRAML2) Fine Motor Functions Screening: [facility] Developmental Test of Visual-Motor Integration, 6th Ed. (VMI) Behavioral Ratings Achenbach Behavior Checklists (CBCL) Adaptive Behavior Assessment System, 2nd Edition (ABAS-II) BEHAVIORAL OBSERVATIONS Sumit arrived to the testing session accompanied by his mother. He appeared smaller than his chronological age; grooming and dress were appropriate. Upon informal observation, gross motor abilities were intact. He exhibited more difficulty on tasks with high fine motor demand (e.g., drawing tasks).No hearing or vision concerns were reported or observed. Sumit???s demeanor throughout the evaluation was compliant and cooperative. Eye contact was well-modulated and Sumit was able to maintain an appropriate reciprocal conversation with the examiner. He spontaneously offered information a number of times for the examiner???s benefit, including information about [email or web address] movies and his dogs. In regard to [...] his current level of intellectual and cognitive functioning. SUMMARY AND RECOMMENDATIONS Sumit is a very sweet 9-year-old boy who was seen as part of an interdisciplinary evaluation in theNeurodevelopment, Neuropsychology, and Psychiatry Clinic ([facility]) on 12/06/2015 and 12/07/2015 due to ahistory of developmental delay. Standardized testing was administered, a parent interview was conducted, parent report forms were completed, and Sumit???s behavior was observed over the course of several hours in order to gain additional information regarding his overall functioning. Please see ???s report for more information obtained during this [...] increased (daily) individualized instruction acrossall academic areas. Smuit should also qualify for and receive Extended [...] receiving these supports consistently throughout the day. Thank you for referring Sumit for a neuropsychological evaluation. Please contact us if you have any questions. Zulma Green Psy.D., Postdoctoral Fellow Eleuterio Wright Psy.D., FLY, Director, Pediatric Neuropsychological Services Clinical Neuropsychologist [place] Licensed Psychologist #[id number] This report was prepared by Zulma Green Psy.D., Postdoctoral Fellow in Pediatric Neuropsychology under the supervision of Eleuterio Wright Psy.D. DATA TABLES DESCRIPTOR Percentile Rank Very Superior 98 and above Superior 91 to 97 High Average 75 to 90 Average 25 to 74 Low Average 10 to 24 Borderline 2 to 9 Extremely Low < 2 NOTES: Standard scores (SS) have means of 100, and standard deviations of ?? 15; Scaled scores (ss) have a mean of 10, and standard deviations of ?? 3. T-Scores have means of 50, and standard deviations of ?? 10; Z-scores have means of 0, and standard deviations of ?? 1. ROBERTO-II Composite Scores Raw Score Standard Score Percentile Verbal -- 80 9 Nonverbal -- 64 1 Spatial -- 67 1 General Conceptual Ability -- 67 1 ROBERTO-II Subtest Scores Raw Score T-Score Percentile Verbal Word Definitions 104 39 14 Verbal Similarities 103 37 10 Nonverbal Matrices 72 30 2 Sequential & Quantitative Reasoning 71 26 1 Spatial Pattern Construction 198 33 4 Recall of Design 70 28 1 Beery VMI Raw Score Standard Score Percentile VMI 15 46 <1 WIAT-III Raw Score Standard Score Percentile Word Reading 44 87 19 Pseudoword Decoding 29 92 30 EOWPVT Raw Score Standard Score Percentile 95 83 13 PPVT-4 Raw Score Standard Score Percentile 156 88 21 WRAML2 Raw Score Standard Score Percentile Verbal Learning Total 15 3 <1 Verbal Learning Delay 6 7 16 Recognition 28 4 2 ABAS-II Raw score Standard Score Percentile General Adaptive Composite (GAC) 26 57 <1 Conceptual 10 63 1 Social 10 75 5 Practical 6 44 <1 ABAS subscales Raw Score Scaled Score Percentile Communication 55 6 9 Community 28 2 <1 Functional Academics 35 3 1 Home Living 34 1 <1 Health and Safety 44 2 <1 Leisure 45 6 9 Self-Care 49 1 <1 Self-Direction 34 1 <1 Social 51 4 2 CBCL Internalizing Problems Externalizing Problems Total Problems Syndrome Scales Anxious/Depressed Withdrawn/Depressed Somatic Complaints Social Problems Thought Problems Attention Problems Rule-Breaking Behavior Aggressive Behavior *indicates borderline clinical elevation indicates clinical elevation Parent T-Score 59 58 60* 54 63 58 63 50 69* 64 52 Percentile 81 79 84 65 90 79 90 <50 97 52 58 documented in this encounter Plan of Treatment Not on file documented as of this encounter Visit Diagnoses Diagnosis Intellectual disability Unspecified intellectual disabilities documented in this encounter Care Teams Strapper Operator Relationship Specialty Start Date End Date Robel Christianson MD [address] [place] [address] PCP - General 09/05/10 02/26/22 documented as of this encounter
--- OUTSIDE RECORDS SUMMARY | 2024-06-05 17:33 | XMS_ITS | Data Portability ---
Author Organization [place] - [facility] [place] [place] [address] Assessment No assessment recorded. Plan of Treatment Reminders Order Date Submit Date Provider Last Modified By Organization Details Last Modified Time Details Appointments New Patient 40 2023 01:30P M Not available Not available Not available Annual Wellness Exam 40 2024 11:00A M Not available Not available Not available Lab rapid strep group A, throat 2023 [email or web address], [place], [address], 11/18/2023 17:43:10 influenza virus A + B + SARS-CoV- 2 (COVID19) Ag panel, rapid IA, upper respirato ry specimen 2023 [facility] [email or web address], [address], 11/18/2023 17:43:10 Referral None recorded. Procedures None recorded. Surgeries None recorded. Imaging None recorded. Medication Orders None recorded. Patient TargetsNo targets recorded. Patient InstructionsNo instructions recorded. Reason for Referral None Reported. Results Created Date Observation Date Name Description Value Unit Range Abnormal Flag LastModifiedBy Organization Detail LastModifiedTime 11/18/19 24 11/18/2023 influ laurel virus A + B + SARS- CoV-2 (COVI D19) Ag panel , rapid IA, upper respi rator y speci men Influenza A negati ve Not Available [address], [place], [address], 11/18/2023 16:18:08 11/18/19 24 11/18/2023 influ laurel virus A + B + SARS- CoV-2 (COVI D19) Ag panel , rapid IA, upper respi rator y speci men Influenza B negati ve Not Available [address], [place], [address], 11/18/2023 16:18:08 11/18/19 24 11/18/2023 influ laurel virus A + B + SARS- CoV-2 (COVI D19) Ag panel , rapid IA, upper respi rator y speci men SARS-COV-2 positi ve Not Available [address], [place], [address], 11/18/2023 16:18:08 11/18/19 24 11/18/2023 rapid strep group A, throa t Strep negati ve Not Available [address], [place], [address], 11/18/2023 16:14:57 Result Notes None recorded. 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 023 Problem Code: Z91.030; Problem Code Type: ICD-10; Not Available [facility] 3 05:34:19 Cellulitis of left lower limb Active 023 Problem Code: L03.116; Problem Code Type: ICD-10; Not Available [facility] 3 05:34:19 Atrial septal defect Active 013 JENNIFER LOWERY MA null, [place] - [facility] 4 10:50:03 Cerebral palsy Active 016 JENNIFER LOWERY MA null, [place] - [facility] 4 10:50:27 Intellectual disability Active 024 BIJAN ATWOOD, [facility] 4 10:50:42 Cognitive deficit in attention Completed 021 03/31/2024 BIJAN ATWOOD, [facility] 4 10:52:38 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 Medical Equipment None Reported. Allergies No known drug allergies Medications Name Sig Start Date Stop Date Status Note LastModified by Organization Details LastModified Time prednisone 20 mg tablet Take 2 tablet by mouth every morning 03/31 completed Not Available Not Available Not Available cephalexin 500 mg capsule Take 1 capsule by mouth four times a day 04/01 completed Not Available Not Available Not Available Vitals Date Recorded Body height Body mass index (BMI) Body weight Respiratory rate Body temperature Oxygen saturation Oxygen saturation in Arterial blood by Pulse oximetry Heart rate Systolic blood pressure Diastolic blood pressure Provider Name and Address Organization Details Last Updated DateTime 4 177.8 cm 17.2 kg/m2 51373.0 8 g 19 /min 96.1 [degF] 98 % 98 % 81 /min 129 mm[Hg] 84 mm[Hg] Sukhi Snell MA [facility] 15:55:51 Date Recorded Body height Body mass index (BMI) Body weight Body temperature Oxygen saturation Oxygen saturation in Arterial blood by Pulse oximetry Heart rate Systolic blood pressure Diastolic blood pressure Provider Name and Address Organization Details Last Updated DateTime 180.34 cm 17.3 kg/m2 89052.1 7 g 98.8 [degF] 99 % 99 % 73 /min 104 mm[Hg] 68 mm[Hg] JENNIFER LOWERY MA [facility] 13:35:53 Social History Question Answer Notes LastModified by Organizat ion Details LastModified Time Tobacco Smoking Status Never Smoker Sukhi Snell MA [facility], [facility] 11/18/2023 15:56:31 Would You Say That, In General, Your Health Is Very Good Information not available 06/05/2024 How Often Does Anyone, Including Family, Physically Hurt You? Never Information not available 06/05/2024 How Often Does Anyone, Including Family, Insult Or Talk Down To You? Never Information no t available 06/05/2024 How Often Does Anyone, Including Family, Threaten You With Harm? Never Information not available 06/05/2024 How Often Does Anyone, Including Family, Scream Or Curse At You? Never Information not available 06/05/2024 Within The Past 12 Months, You Worried That Your Food Would Run Out Before You Got Money To Buy More. Never True Information n ot available 06/05/2024 Within The Past 12 Months, The Food You Bought Just Didn't Last And You Didn't Have Money To Get More. Never True Information not available 06/05/2024 How Hard Is It For You To Pay For The Very Basics Like Food, Housing, Medical Care, And Heating? Would You Say It Is: Not Hard At All Information not available 06/05/2024 In The Past 12 Months, Has Lack Of Reliable Transportation Kept You From Medical Appointments, Meetings, Work Or From Getting Things Needed For Daily Living? No Information not available 06/05/2024 What Is Your Housing Situation Today? I Have Housing. Information not available 06/05/2024 How Often In The Past Year Have You Used Marijuana (including Smoking, Vaping, Dabbing, Or Edibles)? Never Information not available 06/05/2024 How Often In The Past Year Have You Used Prescription Medications That Were Not Prescribed To You? Never Information not available 06/05/2024 How Often In The Past Year Have You Taken Your Own Prescription Medication More Than The Way It Was Prescribed Or For Different Reasons Than Its Intended Purpose? Never Information not available 06/05/2024 How Often In The Past Year Have You Used Other Drugs (for Example, Heroin, Cocaine, Meth, Salvia, Inhalants)? Never Information not available 06/05/2024 Have You Ever Used IV Drugs? No Information not available 06/05/2024 Date Of Most Recent SBINS 06/05/2024 Information not available 06/05/2024 What Was The Date Of Your Most Recent Tobacco Screening? 06/05/2024 Information n ot available 06/05/2024 Has Tobacco Cessation Counseling Been Provided? No Information not available 06/05/2024 Do You Or Have You Ever Used Any Other Forms Of Tobacco Or Nicotine? No Information not available 06/05/2024 Sex: Male Functional Status None recorded. Mental Status None recorded. Family History Nothing Reported. Medical History No medical history recorded. Immunizations Vaccine Type Date Status Provider Name and Address Organization Details Recorded Time Tdap 02/14/2023 completed Not Available [facility] 05:31:42 COVID-19, mRNA, LNP-S, PF, 100 mcg/0.5mL dose or 50 mcg/0.25mL dose 10/20/2021 completed Not Available [facility] 08/23/20 05:31:43 COVID-19, mRNA, LNP-S, PF, 100 mcg/0.5mL dose or 50 mcg/0.25mL dose 02/03/2021 completed Not Available [facility] 08/23/20 05:31:43 COVID-19, mRNA, LNP-S, PF, 100 mcg/0.5mL dose or 50 mcg/0.25mL dose 03/03/2021 completed Not Available [facility] 08/23/20 05:31:43 influenza, unspecified formulation 08/16/2022 completed Not Available [facility] 2023 05:31:44 DTaP, unspecified formulation 02/26/2003 completed YAMILETH Aguilar, [facility] 11/18/2023 15:24:37 Hep B, unspecified formulation 02/26/2003 completed Leigh Ann Alexandra RN null, [facility] 11/18/2023 15:24:45 polio, unspecified formulation 02/26/2003 completed Legih Ann Alexandra RN null, [facility] 11/18/2023 15:24:52 pneumococcal conjugate PCV 7 2002 completed YAMILETH Aguilar, [facility] 11/18/2023 15:25:01 pneumococcal conjugate PCV 7 2002 completed Leigh Ann Alexandra RN null, [facility] 11/18/2023 15:25:04 pneumococcal conjugate PCV 7 02/26/2003 completed Leigh Ann Alexandra RN null, [facility] 11/18/2023 15:25:07 pneumococcal conjugate PCV 7 08/24/2003 completed Leigh Ann Alexandra RN null, [facility] 11/18/2023 15:25:10 DTaP, unspecified formulation 2002 completed Leigh Ann Alexandra RN null, [facility] 11/18/2023 15:25:18 DTaP, unspecified formulation 2002 completed Leigh Ann Alexandra RN null, [facility] 11/18/2023 15:25:21 DTaP, unspecified formulation 02/28/2004 completed Leigh Ann Alexandra RN null, [facility] 11/18/2023 15:25:26 DTaP, unspecified formulation 10/31/2006 completed Leigh Ann Alexandra RN null, [facility] 11/18/2023 15:25:31 polio, unspecified formulation 2002 completed Leigh Ann Alexandra RN null, [facility] 11/18/2023 15:25:40 polio, unspecified formulation 2002 completed Leigh Ann Alexandra RN null, [facility] 11/18/2023 15:25:42 polio, unspecified formulation 08/13/2007 completed Leigh Ann Alexandra RN null, [facility] 11/18/2023 15:25:59 Hep A, unspecified formulation 06/13/2020 completed Leigh Ann Alexandra RN null, [facility] 11/18/2023 15:26:11 Hep A, unspecified formulation 07/18/2021 completed Leigh Ann Alexandra RN null, [facility] 11/18/2023 15:26:16 MMR 08/24/2003 completed Leigh Ann Alexandra RN null, [facility] 11/18/2023 15:26:28 MMR 08/13/2007 completed Leigh Ann Alexandra RN null, [facility] 11/18/2023 15:26:31 varicella 12/01/2003 completed Leigh Ann Alexandra RN null, [facility] 11/18/2023 15:26:45 varicella 09/15/2012 completed Leigh Ann Alexandra RN null, [facility] 11/18/2023 15:26:49 meningococcal ACWY, unspecified formulation 02/01/2015 completed Leigh Ann Alexandra RN null, [facility] 11/18/2023 15:27:06 meningococcal ACWY, unspecified formulation 06/13/2020 completed Leigh Ann Alexandra RN null, [facility] 11/18/2023 15:27:09 HPV, unspecified formulation 02/04/2018 completed Leigh Ann Alexandra RN null, [facility] 11/18/2023 15:27:20 HPV, unspecified formulation 02/06/2019 completed Leigh Ann Alexandra RN null, [facility] 11/18/2023 15:27:23 HPV, unspecified formulation 02/14/2023 completed Leigh Ann Alexandra RN null, [facility] 11/18/2023 15:27:37 influenza, unspecified formulation 07/30/2023 completed YAMILETH Aguilar, [facility] 11/18/2023 15:27:48 Tdap 02/14/2023 completed YAMILETH Aguilar, [facility] 11/18/2023 15:27:59 Hep B, unspecified formulation 06/09/2003 completed YAMILETH Aguilar, [facility] 11/18/2023 15:28:14 Hep B, unspecified formulation 02/28/2004 completed YAMILETH Aguilar, [facility] 11/18/2023 15:28:21 Hib, unspecified formulation 2002 completed YAMILETH Aguilar, [facility] 11/18/2023 15:28:31 Hib, unspecified formulation 2002 completed YAMILETH Aguilar, [facility] 11/18/2023 15:28:35 Hib, unspecified formulation 02/26/2003 completed YAMILETH Aguilar, [facility] 11/18/2023 15:28:48 Hib, unspecified formulation 12/01/2003 completed YAMILETH Aguilar, [facility] 11/18/2023 15:28:58 Past Encounters Encounter ID Performer Location Encounter Start Date Encounter Closed Date Diagnosis/Indication Diagnosis SNOMED-CT Code [id number] [facility] [address] [place] [address] 11/18/2023 15:12:47 11/18/2023 17:16:04 COVID-19 [id number] Joy Romero [facility] [place] [place] [address] 06/05/2024 13:25:47 06/05/2024 15:20:42 Cerebral palsy [id number] Intellectu al disability 815063074 Atrial septal defect 701 [address]27 Fatigue 74158361 Health Concerns Section Related Observation LastModified by Organization Detai ls LastModified Time None Recorded Concern Status LastModified by Organization Details LastModified Time None Recorded Advance Directives Directive None Recorded Payers Encounter Date Sequence Insurance Name Policy Number Policy Nagy Covered Member ID Nagy Member ID Guarantor Name 11/18/2023 1 [facility] (MEDICAID) Sumit Simmons [id number] Sumit Simmons Notes Date Note Type Note Provider Name and Address Organization Details Recorded Time 11/18/2023 text/html HPI Notes: Patie nt with onset of symptoms 3 days ago, with body aches, sweats/chills, fatigue, nasal congestion, cough, and sore throat. Household contacts with similar symptoms. Works at daycare with multiple sick contacts. Has not trialed any OTC medications for symptoms. Patient has not yet had COVID + illness. Has received original vaccines series. Patient with no chronic lung issues, never smoker.. He does have congenital ASD, followed by cardiology, but patient with no symptoms or limitations. SUKHI CHURCH, [facility] [address], [place], [address], [facility]. 11/19/2023 08:31:29
--- OUTSIDE RECORDS SUMMARY | 2024-06-05 17:33 | XMS_ITS | Encounter Summary ---
Author Organization [facility] [place] [address] Care Team Providers Care Soil Science Teacher Name Role Phone Kiersten Garcia MD Primary Care Provider [phone] Reason for Visit * Reason Comments Procedure Encounter Details Date Type Department Care Team (Latest Contact Info) Description 08/24/2015 8:00 AM EST - 08/24/2015 11:59 PM EST Hospital Encounter [facility] [place] [address] Developmental delay Discharge Disposition: Home Social History Tobacco Use Types Packs/Day Years Used Date Smoking Tobacco: Never Smokeless Tobacco: Never Sex and Gender Information Value Date Recorded Sex Assigned at Not on file Gender Identity Not on file Sexual Orientation Not on file documented as of this encounter Procedure Notes * Tawanda Davis MD - 08/24/2015 11:21 AM ESTAssociated Order(s): EEG 24 HOUR MONITORING, PORTABLE Pre-Procedure Diagnose(s): Developmental delay [facility] Department of Neurology Ambulatory EEG Report Name of the Patient: Sumit Simmons Date of : 2000 Date of Service: 08/24/2015 Referring physician: Phillip Davis MD BRIEF HISTORY: Sumit Simmons is a 15 y.o. year old patient with seizures. MEDICATIONS: No current outpatient prescriptions on file. No current facility-administered medications for this encounter. METHODS: A 21 channel digitized electroencephalogram was performed in the [facility] Clinical Neurophysiology Laboratory. The 10/20 international system of electrode placement was used and bipolar and referential electrode montages were recorded. In addition to EEG the patient was monitored for EKG and lateral/vertical eye movements. Video was not recorded during the session. The duration of the recording was 24 hours. HAM CLERK'S REPORT: Performed by: DT Patient was not sleep deprived. Sleep was attained. Photic stimulation was performed. Hyperventilation was performed. Effort was was adequate. Movement and other artifact was not significant. Comments:Ambulatory 24 hour EEG ELECTROENCEPHALOGRAPHER'S REPORT: Background: During the awake state with the eyes closed the background consisted of a 50-100 uV amplitude, 10 Hz posterior reactive rhythm that attenuated appropriately with eye opening. Excessive beta activity was noticed and distributed diffusely with an anterior predominance. There was a normal a nterior-posterior voltage gradient. With eye opening the background activity changed to a low voltage mixture of alpha, beta, and occasional theta range frequencies. There were no significant asymmetries of background activity noted. Sleep: Stage II/III sleep was obtained and consisted of symmetrical sleep spindles, vertex sharp waves, and diffuse delta slowing. Once again excessive beta activity was noticed. Hyperventilation: Hyperventilation resulted in diffuse slowing of the background activity without appearance of abnormal activity. Photic Stimulation: Photic stimulation using a step-frank increase in photic frequency varying from 1-21 Hertz resulted in bilateral driving responses at 7 Hertz but no appearance of abnormal activity. Abnormal Interictal EEG Activity: Excessive beta activity during awake and sleep. Clinical Events/Push-button: None EKG: EKG revealed normal sinus rhythm at 72-90 BPM. PRIOR EEG: No previous EEG reports were readily available. INTERPRETATION and CLINICAL CORRELATION: This long-term ambulatory EEG is normal during the awake and sleep states as well as during the activation procedures of hyperventilation and photic stimulation. There was no ESES to explain his language impairment. A normal EEG does not, of itself alone, exclude epilepsy. MALISSA PHAN MD NEURO ATTENDING EEG NOTE: I attest that I have read the entire EEG record, completely; reviewed it with the Neurology Fellow Dr. Phan; directed the composition of the above report; and concur with the documentation. A normal EEG does not, of itself alone, exclude epilepsy. Robert Davis MD Copy KIERSTEN GARCIA MD [address] [place] [id number] documented in this encounter Plan of Treatment Not on file documented as of this encounter Procedures Procedure Name Priority Date/Time Associated Diagnosis Comments ZEEG 24 HOUR MONITORING, PORTABLE Routine 08/29/2015 12:47 PM EST Developmental delay documented in this encounter Results * 24 Hour EEG, Portable (08/29/2015 12:47 PM EST) Narrative Tawanda Davis MD - 08/29/2015 12:47 PM EST Tawanda Davis MD ? 08/29/2015 12:47 PM [facility] Department of Neurology Ambulatory EEG Report Name of the Patient: ??Sumit Simmons Date of : ?2000 Date of Service: ?08/24/2015 Referring physician: ?Phillip Davis MD BRIEF HISTORY: Sumit Simmons is a 15 y.o. year old patient with seizures. MEDICATIONS: No current outpatient prescriptions on file. No current facility-administered medications for this encounter. METHODS: ?? A 21 channel digitized electroencephalogram was performed in the [facility] Clinical Neurophysiology Laboratory. The 10/20 international system of electrode placement was used and bipolar and referential electrode montages were recorded. ??In addition to EEG the patient was monitored for EKG and lateral/vertical eye movements. Video was not recorded during the session. The duration of the recording was 24 hours. HAM CLERK'S REPORT: Performed by: DT Patient was not sleep deprived. Sleep was attained. Photic stimulation was performed. Hyperventilation was performed. Effort was was adequate. Movement and other artifact was not significant. Comments:Ambulatory 24 hour EEG ELECTROENCEPHALOGRAPHER'S REPORT: Background: ?? During the awake state with the eyes closed the background consisted of a 50-100 uV amplitude, 10 Hz posterior reactive rhythm that attenuated appropriately with eye opening. Excessive beta activity was noticed and distributed diffusely with an anterior predominance. There was a normal anterior-posterior voltage gradient. With eye opening the background activity changed to a low voltage mixture of alpha, beta, and occasional theta range frequencies. There were no significant asymmetries of background activity noted. Sleep: ?? Stage II/III sleep was obtained and consisted of symmetrical sleep spindles, vertex sharp waves, and diffuse delta slowing. Once again excessive beta activity was noticed. Hyperventilation: ?? Hyperventilation resulted in diffuse slowing of the background activity without appearance of abnormal activity. Photic Stimulation: ?? Photic stimulation using a step-frank increase in photic frequency varying from 1-21 Hertz resulted in bilateral driving responses at 7 Hertz but no appearance of abnormal activity. Abnormal Interictal EEG Activity: ?? Excessive beta activity during awake and sleep. Clinical Events/Push-button: ??None EKG: ?? EKG revealed normal sinus rhythm at 72-90 BPM. PRIOR EEG: ?? No previous EEG reports were readily available. INTERPRETATION and CLINICAL CORRELATION: ?? This long-term ambulatory EEG is normal during the awake and sleep states as well as during the activation procedures of hyperventilation and photic stimulation. ?? There was no ESES to explain his language impairment. ?? A normal EEG does not, of itself alone, exclude epilepsy. ?? MALISSA PHAN MD NEURO ATTENDING EEG NOTE: ?? I attest that I have read the entire EEG record, completely; reviewed it with the Neurology Fellow Dr. Phan; directed the composition of the above report; and concur with the documentation. ??A normal EEG does not, of itself alone, exclude epilepsy. ?? Robert Davis MD Copy KIERSTEN GARCIA MD [address] [place] [id number] Tawanda Davis MD NEUROLOGY ORDERABLES documented in this encounter Visit Diagnoses Diagnosis Developmental delay Lack of normal physiological development, unspecified Developmental regression Unspecified delay in development Transient alteration of awareness documented in this encounter Care Teams Soil Science Teacher Relationship Specialty Start Date End Date Kiersten Garcia MD [address] [place] [address] PCP - General 09/05/10 02/26/22 documented as of this encounter
--- OUTSIDE RECORDS SUMMARY | 2024-06-05 17:33 | XMS_ITS | Encounter Summary ---
Author Organization [facility] [place] [address] Care Team Providers Care Market Research Lead Name Role Phone Kiersten Christianson MD Primary Care Provider [phone] Reason for Referral * Consultation (Routine) - Closed Specialty Diagnoses / Procedures Referred By Contac t Referred To Contact Child Neurology and Development Diagnoses Developmental delay Tawanda Davis MD [facility] [place] [address] [facility] [address] [place] [address] Referral ID Status Reason Start Date Expiration Date V isits Requested Visits Authorized [id number] Closed Consult, Test & Treat 08/03/2015 08/02/2016 1 1 * Diagnostic Test (Routine) - Closed Specialty Diagnoses / Procedures Referred By Contac t Referred To Contact Radiology Diagnoses Developmental delay Procedures MRI Brain WO Contrast Tawanda Davis MD [facility] [place] [address] [place] [address] Referral ID Status Reason Start Date Expiration Date V isits Requested Visits Authorized [id number] Closed Specialty Service Requested 08/03/2015 11/01/2015 1 1 Reason for Visit * Reason Comments Other Encounter Details Date Type Department Care Team (Latest Contact Info) Description 08/03/2015 9:15 AM EDT Office Visit [place] [address] Tawanda Davis MD [facility] [place] [address] Developmental delay; Developmental regression Social History Tobacco Use Types Packs/Day Years Used Date Smoking Tobacco: Never Smokeless Tobacco: Never Sex and Gender Information Value Date Recorded Sex Assigned at Not on file Gender Identity Not on file Sexual Orientation Not on file documented as of this encounter Last Filed Vital Signs Vital Sign Reading Time Taken Comments Blood Pressure 92/61 08/03/2015 9:02 AM EDT Pulse 69 08/03/2015 9:02 AM EDT Temperature - - Respiratory Rate 18 08/03/2015 9:02 AM EDT Oxygen Saturation - - Inhaled Oxygen Concentration - - Weight 28.5 kg (62 lb 12.8 oz) 08/03/2015 9:02 A M EDT Height 147.3 cm (4' 10) 08/03/2015 9:02 AM EDT Head Circumference 55.3 cm 08/03/2015 9:02 AM EDT Body Mass Index 13.13 08/03/2015 9:02 AM EDT Body Mass Index Percentile 0.01% 08/03/2015 9:0 2 AM EDT Growth Chart: [facility] (Boys, 2-2 0 Years) documented in this encounter Patient Instructions * Patient Instructions* Tawanda Davis MD - 08/03/2015 10:36 AM EDT Images from the original note were not included. PLAN: ?? Try to get Dr. Davis' developmental notes from Dr. Kiersten Christianson's office. I think Dr. Casillas is no longer working. ?? Try to get Dr. Rebecca Lawrence's Genetics notes from Dr. Kiersten Christianson's office. ?? Follow up with ME or Brittany Saini or Yarely Aguilera in 2 months. ?? Gene Microarray. ?? 24 hour ambulatory EEG. ?? Brain MRI without sedation. Orders Placed This Encounter Procedures ??? MRI Brain WO Contrast ??? Chromosome microarray, SNP ??? CK ? ? Lyme IgG & IgM Antibody ??? Tissue transglutaminase, IgA ??? TSH ??? T4, free ??? VIT D Total Evaluation ??? 3-Methylglutaconic Acid, Urine ??? Organic Acids Screen, urine ??? Amino Acids, Urine, Quantitative ??? Purine and Pyrimidine Panel, urine ??? Acylglycines Quantitative Urine ??? Carnitine ??? Acylcarnitines, plasma, quantitative ??? Mucopolysaccharides (MPS) Quantitative, Urine ??? Ammonia ??? CBC (with Diff) ??? Lactate, plasma ??? HDL/Cholesterol Profile ??? Triglyceride ??? Uric acid ??? Referral to Child Development ??? 24 Hour EEG, Portable Tawanda Davis MD [facility] Concern About Developmental Problems: After Your Child's Visit Your Care Instructions Babies learn many skills during their first year of life. They roll over, crawl, babble, and may say words. As babies grow, they reach developmental milestones. These are skills that most babies can do at specific ages. If your baby is not growing or developing as you expect, it's normal to be concerned. A baby may be slow to reach certain milestones. This does not mean that something is wrong. Some babies develop more slowly than others. But in some cases a baby may have a problem. This could include hearing loss or trouble with speech. Or the baby may have poor muscle tone or trouble learning to crawl or walk. Your doctor may want to wait and see how your baby develops. He or she may ask you to watch how your baby grows in one area. Follow-up care is a lucero part of your child's treatment and safety. Be sure to make and go to all appointments, and call your doctor if your child is having problems. It's also a good idea to know your child's test results and keep a list of the medicines your child takes. How can you care for your child at home? ?? Respond when your baby cries. You will not spoil your baby. When you meet your baby's physical and emotional needs, he or she learns that the world is a safe place. ?? Make a lot of eye contact with your baby. A good time to do this is during feedings. Your baby loves to look at your face and eyes. When you hold your baby in the curve of your arm, you are the perfect distance apart for your baby to see you well. When should you call for help? Watch closely for changes in your baby's health, and be sure to contact your doctor if: ?? Your baby was able to do something, such as sit without support, and can't do this any more. ?? Your baby is not improving in an area of concern. ?? Your baby is not able to do most of the common skills for his or her age. ?? Your baby's growth seems to slow a lot or your baby is not eating well. ?? You are concerned about how your baby reacts to you or you feel unable to connect emotionally with your baby. ?? Your baby does not babble or respond to your voice. ?? Your baby does not get more alert or active over time. Where can you learn more? Visit our health information library at http://authorGEN/Media Li[employer] Entertainmento You can also view health information on M-DISC, your personal patient account. Log in or sign up today. Enter S009 in the search box to learn more about Concern About Developmental Problems: After Your Child's Visit. ?? [id number] [employer]. Care instructions adapted under license by [facility]. This care instruction is for use with your licensed healthcare professional. If you have questions about a medical condition or this instruction, always ask your healthcare professional. [employer] disclaims any warranty or liability for your use of this information. Content Version: 10.4.515092; Current as of: June 22, 2014 [facility] Speech and Language Problems: After Your Child's Visit Your Care Instructions Speech and language problems mean your child has trouble speaking or saying words. Or he or she mayfind it hard to understand or explain ideas. Hearing problems can cause speech and language delays in children. All children with speech and language delays should have their hearing tested. Certain disorders, such as autism, can also cause a delay. Speech and language problems may also run in families. A child can overcome many speech and language problems with treatment such as speech therapy. Treatment works best when problems are caught early. Speech therapy helps your child learn speech and language skills. Follow-up care is a lucero part of your child's treatment and safety. Be sure to make and go to all appointments, and call your doctor if your child is having problems. It's also a good idea to know your child's test results and keep a list of the medicines your child takes. How can you care for your child at home? ?? Talk, play, sing, or read together instead of letting your child watch TV. These activities helpyour child's brain develop. Make reading a part of your child's daily routine. ?? Ask your child to point to familiar items and make the sounds that go with them. ?? Teach your child the names for toys and other common objects. ?? Speak slowly and clearly with your child. ?? Involve your child in conversations. Gently encourage your child to talk to others. ?? Don't imitate your child's unclear speech or constantly correct your child. You can help your child more if you rephrase, repeat, and teach the names of things in a positive way. ?? Make sure your child goes to all appointments with his or her speech therapist. When should you call for help? Watch closely for changes in your child's health, and be sure to contact your doctor or speech therapist if: ?? Your child is not making progress as expected. Where can you learn more? Visit our health information library at http://authorGEN/nubeloinfo You can also view health information on M-DISC, your personal patient account. Log in or sign up today. Enter S553 in the search box to learn more about Speech and Language Problems: After Your Child's Visit. ?? [phone] [employer], [employer]. Care instructions adapted under license by [facility]. This care instruction is for use with your licensed healthcare professional. If you have questions about a medical condition or this instruction, always ask your healthcare professional. [employer] disclaims any warranty or liability for your use of this information. Content Version: 10.4.055779; Current as of: June 22, 2014 documented in this encounter Progress Notes * Tawanda Davis MD - 08/03/2015 9:33 AM EDT [facility] ATTENDING NOTE CHIEF COMPLAINT: I was asked to consult by KIERSTNE CHRISTIANSON MD (General) to evaluate and assist with management of the following problems: Patient Active Problem List Diagnosis Code ??? PFO (patent foramen ovale) Q21.1 ??? Aortic valve defect I35.9 ??? Developmental delay R62.50 HISTORY OF PRESENT ILLNESS: The history was obtained from detailed review of medical record and discussion with patient's parents. We discussed all aspects of the patient's illness, including diseasetiming; associated signs and symptoms; severity; modifying factors; and duration. Presentation: Walked at 18 months, but did not speak until age 7 years. His hand-writing and spelling have deteriorated in the past few years. Drawing has declined. Never had febrile seizures. Underlying diagnosis: Unknown. Evaluated by loading checker Dr. Rebecca Lawrence who found no syndrome. She took a a blood test but did not find anything. No follow up. No EEG. No Neurologist. Recall and reading comprehension is not good, but actual reading of the words is good. Current development: Last evaluation by Dr. Davis was 2005. IEP for educational disability, math is worst. Does not bite is tongue or wet his bed at night. He does not get into fights. Poor eater, never seconds, rarely finishes his firsts. MEDS: I reviewed [place] database. REVIEW OF SYSTEMS: As above. No other EENT, cardiac, respiratory, gastrointestinal, genitourinary, musculoskeletal, skin, hematologic, endocrine, ID, psychiatric, or neurologic complaints. PAST MEDICAL HISTORY: Past Medical History Diagnosis Date ??? ASD (atrial septal defect) ??? Bicuspid aortic valve ??? Aortic valve defect ??? Developmental delay 08/03/2015 ??? : No infections, trauma, surgery or unusual stressors prenatally. No tobacco, ETOH or illicit drug use during the . testing included ultrasound ZZZ. Full term, vaginal delivery. Apgars unknown, HT ZZZ, WT ZZZ, HC ZZZ. No complications, baby discharged within 48 hours.Mother had hemorrhage after delivery and received transfusions. Developmental Milestones delayed language. Wt declined recently. ??? Pneumonia Jun 2015. ??? Immunizations up to date: I reviewed [facility] database. ??? Allergies: I reviewed [facility] database FAMILY HISTORY: No consanguinity. Maternal Ethnic background [place] family of [employer] [place] [employer]. Paternal Ethnic background RENNY Eduardmegan.. No history of miscarriages; SIDS; defects orchromosomal abnormalities; developmental delay; learning disabilities; mental retardation; childhood deafness or blindness; childhood diabetes; neuromuscular or neurodegenerative disorders; seizures;ADHD; Autism; Schizophrenia; or CV disease or stroke in children < age of 40 years. SOCIAL HISTORY: Lives at home with parents and siblings. CURRENT HOME/SCHOOL-BASED SERVICES: [employer]ITTE. CURRENT MEDICAL SPECIALTY DIET/RESTRICTIONS: BRIGITTE. PHYSICAL EXAM: I reviewed [facility] database for vital signs and growth parameters. Body mass index is 13.13 kg/(m^2). HC: 75%; L 15% W<<5%. Temp: -- Heart Rate: [69] Resp: [18] BP: (92)/(61) SpO2: -- General: No acute distress. HEENT: Normocephalic, TM's clear bilaterally, normal OP, mucous membranes pink & moist, no palpable nodes. Lungs: CTA, bilaterally. CV: S1, S2, without murmur, rub or gallop. Normal pulses. Abdomen: No HSM, mass or tenderness. : Hugo Stage defer. Skin: No rashes, bruises, telangiectasias, or angiokeratoma. Wood's lamp exam.1 x4 cm cafe au lait on the right aspect of his back. Musculoskeletal: Full passive ROM. No erythema, swelling, deformity or tenderness. Mental Status: Alert, oriented x 3 and attends. Recall impaired. Months in reverse and WORLD both done poorly. Age-appropriate expressive & receptive language. Follows simple and complex commands. Cranial Nerves: II-XII intact fundoscopic exam, pupillary responses, EOM, visual sawant, hearing, gag, tongue movement, pronunciation. Right nasolabial fold low. Motor: Decreased tone, decreased mass, OK strength, praxis, fine motor activity, no abnormal involuntary movements. Sensory: Responds to light touch & vibration. No Romberg. Reflexes: +2, R toe down going, Left toe up. 3 beats ankle clonus only on left but no crossed adductors. Cerebellum: No dysmetria, tremor, or ataxia. LABORATORY DATA: I reviewed the labs and images myself in detail and entirety. ASSESSMENT and COMPLEX DECISION MANAGEMENT: PROBLEM LIST: Patient Active Problem List Diagnosis Code ??? PFO (patent foramen ovale) Q21.1 ??? Aortic valve defect I35.9 ??? Developmental delay R62.50 LEVEL OF RISK:worrisome because of his lost skills. Worsening is possible unless we find a treatable cause for his difulties. PLAN: ?? Try to get Dr. Davis' developmental notes from Dr. Kiersten Christianson's office. I think Dr. Casillas is no longer working. ?? Try to get Dr. Rebecca Lawrence's Genetics notes from Dr. Kiersten Christianson's office. ?? Follow up with ME or Brittany Saini or Yarely Aguilera in 2 months. ?? Gene Microarray. ?? 24 hour ambulatory EEG. ?? Brain MRI without sedation. Orders Placed This Encounter Procedures ??? MRI Brain WO Contrast ??? Chromosome microarray, SNP ??? CK ? ? Lyme IgG & IgM Antibody ??? Tissue transglutaminase, IgA ??? TSH ??? T4, free ??? VIT D Total Evaluation ??? 3-Methylglutaconic Acid, Urine ??? Organic Acids Screen, urine ??? Amino Acids, Urine, Quantitative ??? Purine and Pyrimidine Panel, urine ??? Acylglycines Quantitative Urine ??? Carnitine ??? Acylcarnitines, plasma, quantitative ??? Mucopolysaccharides (MPS) Quantitative, Urine ??? Ammonia ??? CBC (with Diff) ??? Lactate, plasma ??? HDL/Cholesterol Profile ??? Triglyceride ??? Uric acid ??? Referral to Child Development ??? 24 Hour EEG, Portable The total amount of time spent in this visit was ZZZ minutes. Of that, ZZZ minutes were spent in educational discussion with the patient and family. Tawanda Davis MD [id number] Copy: KIERSTEN CHRISTIANSON MD (General) [address] [place] [address] / [facility] [id number] documented in this encounter Miscellaneous Notes * Addendum Note - Sue Varghese - 08/03/2015 11:15 AM EDTAddended by: SUE VARGHESE on: 08/03/2015 11:15 AM Modules accepted: Orders documented in this encounter Plan of Treatment Scheduled Referrals Name Type Priority Associated Diagnoses Order Schedule Referral to Child Development Outpatient Referral Routine Developmental delay Ordered: 08/03/2015 documented as of this encounter Procedures Procedure Name Priority Date/Time Associated Diagnosis Comments MUCOPOLYSACCHARIDES (MPS) QUANTITATIVE, URINE Routine 08/03/2015 11:41 AM EDT Developmental delay Developmental regression PURINE AND PYRIMIDINE PANEL, URINE Routine 08/03/2015 11:41 AM EDT Developmental delay ACYLGLYCINES QUANTITATIVE URINE Routine 08/03/2015 11:41 AM EDT Developmental delay 3-METHYLGLUTACONIC ACID, URINE Routine 08/03/2015 11:41 AM EDT Developmental delay ORGANIC ACIDS SCREEN, URINE Routine 08/03/2015 11:41 AM EDT Developmental delay AMINO ACIDS, URINE, QUANTITATIVE Routine 08/03/2015 11:41 AM EDT Developmental delay LYME IGG & IGM ANTIBODY Routine 08/03/20 11:35 AM EDT Developmental delay LYME ANTIBODY CONFIRMATION BY IMMUNOBLOT Routine 08/03/2015 11:35 AM EDT GEOMORPHOLOGIST Routine 08/03/2015 11:35 AM EDT Developmental delay CHROMOSOME MICROARRAY, SNP Routine 08/03 11:35 AM EDT Developmental delay HEMOGRAM Routine 08/03/2015 11:35 AM EDT Developmental delay Developmental regression DIFFERENTIAL, AUTOMATED Routine 08/03/20 11:35 AM EDT Developmental delay Developmental regression CARNITINE Routine 08/03/2015 11:35 AM EDT Developmental delay TISSUE TRANSGLUTAMINASE, IGA Routine 08/03/2015 11:35 AM EDT Developmental delay ACYLCARNITINES, PLASMA, QUANTITATIVE Routine 08/03/2015 11:35 AM EDT Developmental delay VITAMIN D, 25-HYDROXY Routine 08/03/2015 11:35 AM EDT Developmental delay CBC (WITH DIFF) Routine 08/03/2015 11:35 AM EDT Developmental delay Developmental regression URIC ACID Routine 08/03/2015 11:35 AM EDT Developmental delay Developmental regression TRIGLYCERIDE Routine 08/03/2015 11:35 AM EDT Developmental delay Developmental regression TSH Routine 08/03/2015 11:35 AM EDT Developmental delay T4, FREE Routine 08/03/2015 11:35 AM EDT Developmental delay HDL/CHOL PROFILE Routine 08/03/2015 11:3 5 AM EDT Developmental delay Developmental regression LACTATE, PLASMA Routine 08/03/2015 11:35 AM EDT Developmental delay Developmental regression CK Routine 08/03/2015 11:35 AM EDT Developmental delay AMMONIA Routine 08/03/2015 11:35 AM EDT Developmental delay Developmental regression GEOMORPHOLOGIST REPORT Routine 08/03/2015 11:06 AM EDT Developmental delay documented in this encounter Results * 24 Hour EEG, Portable (08/29/2015 12:47 PM EST) Narrative Tawanda Davis MD - 08/29/2015 12:47 PM EST Tawanda Davis MD ? 08/29/2015 12:47 PM [facility] Department of Neurology Ambulatory EEG Report Name of the Patient: ??Sumit Simmons Date of : ?2000 Date of Service: ?08/24/2015 Referring physician: ?Phillip Davis MD BRIEF HISTORY: Sumit Simmons is a 15 y.o. year old patient with seizures. MEDICATIONS: No current outpatient prescriptions on file. No current facility-administered medications for this encounter. METHODS: ?? A 21 channel digitized electroencephalogram was performed in the [facility]. The 10/20 international system of electrode placement was used and bipolar and referential electrode montages were recorded. ??In addition to EEG the patient was monitored for EKG and lateral/vertical eye movements. Video was not recorded during the session. The duration of the recording was 24 hours. BLUEPRINT MACHINE OPERATOR'S REPORT: Performed by: DT Patient was not [...] of itself alone, exclude epilepsy. ?? MALISSA PIPER MD NEURO ATTENDING EEG NOTE: ?? I attest that I have read the entire EEG record, completely; reviewed it with the Neurology Fellow Dr. Piper; directed the composition of the above report; and concur with the documentation. ??A normal EEG does not, of itself alone, exclude epilepsy. ?? Robert Davis MD Copy KIERSTEN CHRISTIANSON MD [address] [place], [place] [address] / [facility] [id number] Tawanda Davis MD NEUROLOGY ORDERABLES * MRI Brain WO Contrast (08/07/2015 11:28 [...] and pituitary are normal. Procedure Note Ryan uLx MD - 08/07/2015 EXAMINATION: MRI BRAIN WO [...] IMPRESSION: Negative brain MRI. Tawanda Davis MD G MRI ORDERABLES * Mucopolysaccharides (MPS) Quantitative, Urine (08/03/2015 11:41 AM EDT) U Brigitte Qnt (FEBRUARY) 8.9 <=10.0 mg/mmol Cr [facility] Comment: In this specimen, the excretion of total glycosaminoglycans was normal. Patients with MPS IV (Morquio), MPS (Maroteaux-Edmund) and MPS VII (Sly) are not reliably detected due to the inconsistent excretion of glycosaminoglycans in these syndromes. False negative results have been observed. Consider further diagnostic testing by enzyme assay if these conditions are suspected. Please contact the Biochemical [facility]etics call center consultant or genetic counselor promotion manager ( ) if you have any questions. Test Performed by: [facility] [address] [place] [address] Sprayer Hand: Paco Emery II, M.D., Ph.D. Urine specimen (specimen) 08/03/2015 11:41 AM EDT 08/03/2015 12:13 PM EDT Narrative Resulting Agency Comment Spec In Lab Tawanda Davis MD LAB SEND OUT ORDERAB LES [facility] * Acylglycines Quantitative Urine (08/03/2015 11:41 AM EDT) U Acylglycines, Quant (MAY) Test ?Result ??Flag ??Unit ? RefValue Acylglycines, QN, U ??Ethylmalonic Acid ? 3.41 ?mg/g Cr ?0.5-20.2 ??2-Methylsuccin ic ?1.31 ?mg/g Cr ?0.4-13.8 ?acid ??Glutaric acid ? 0.72 ?mg/g Cr ?0.6-15.2 ??Isobutyrylglyc ine ? 2.80 ?mg/g Cr ?0.00-11.0 ??n-Butyrylglyci ne ?0.37 ?mg/g Cr ?0.10-2.10 ??2- ?1.95 ?mg/g Cr ?0.3-7.5 ?Methylbutyrylg lycine ??Isovalerylglyc ine ? 3.86 ?mg/g Cr ?0.3-14.3 ??n-Hexanoylglyc ine ? 0.74 ?mg/g Cr ?0.20-1.90 ??n-Octanoylglyc ine ? 0.67 ?mg/g Cr ?0.1-2.1 ??3- ?0.63 ?mg/g Cr ?0.00-1.10 ?Phenylpropiony lglycine ??Suberylglycine ?1.14 ?mg/g Cr ?0.00-11.0 ??trans- ?11.71 ? mg/g Cr ?0.2-14.7 ?Cinnamoylglyci ne ??Dodecanedioic acid ?0.01 ?mg/g Cr ?0.00-1.10 ??Tetradecanedio ic ?0.00 ?mg/g Cr ?0.00-1.00 ?acid ??Hexadecanedioi c acid ??0.01 ?mg/g Cr ?0.00-1.00 ??Interpretation In this sample, the acylglycine profile was normal. ---ADDITIONAL INFORMATION----- Gas Chromatography-M ass Spectrometry (GC-MS) Stable Isotope Dilution Analysis ??Reviewed By ? Dylan De La Vega M.D. Test Performed by: [place] [address] Sprayer Hand: Paco Emery II, M.D., Ph.D. [facility] Urine specimen (specimen) 08/03/2015 11:41 AM EDT 08/03/2015 12:13 PM EDT Narrative Resulting Agency Comment Spec In Lab Tawanda Davis MD LAB SEND OUT ORDERAB LES [facility] * (ABNORMAL) Purine and Pyrimidine Panel, urine (08/03/2015 11:41 AM EDT) U Pur/Pyr Pnl Test ?Result ??Flag ??Unit ? RefValue ------ Purine and Pyrimidine Panel, U ??Uracil ?16 ?mmol/mol Cr ??<=26 ??Uric Acid ? 714 ?H ?mmol/mol Cr ??<=698 ??Hypoxanthine ?10 ?mmol/mol Cr ??<36 ??Xanthine ?10 ?mmol/mol Cr ??<16 ??Comment ? SEE COMMENTS In this urine sample, the excretion of uric acid was mildly elevated. Patients with complete hypoxanthine-guani ne phosphoribosyltran sferase (HGPRT) deficiency (Lesch-Nyhan syndrome; X-linked) or phosphoribosyl pyrophosphatase (PRPP) synthetase superactivity (X-linked) usually present with more significant hyperuricosuria. Alternatively, disorders presenting with low uric acid in plasma and hyperuricosuria include hereditary renal hypouricemia and other tubular transport defects. Finally, a diet high in purines may cause increased levels of plasma and urine uric acid. We need clinical information to provide further interpretation. Test Performed by: [place] [address] Sprayer Hand: Paoc Emery II, M.D., Ph.D.(A) [facility] Urine specimen (specimen) 08/03/2015 11:41 AM EDT 08/03/2015 12:13 PM EDT Narrative Resulting Agency Comment Spec In Lab Tawanda Davis MD LAB SEND OUT ORDERAB LES Performing Organization Address City/State/[facility] Co de Phone Number [facility] * (ABNORMAL) Amino Acids, Urine, Quantitative (08/03/2015 11:41 AM EDT) U Amino Acid Quant (MAY) Test ?Result ??Flag ??Unit ? RefValue Amino Acids, QN, Random, U ??Phosphoserine ? 0 ? nmol/mg Cr ?? <1 ??Phosphoethanol amine ?? 58 ?nmol/mg Cr ?? <88 ??Taurine ? 215 ? nmol/mg Cr ?? 57-2235 ??Asparagine ?62 ?nmol/mg Cr ?? 22-283 ??Serine ?320 ? nmol/mg Cr ?? 105-846 ??Hydroxyproline ?5 ? nmol/mg Cr ?? <22 ??Glycine ? 2055 ?nmol/mg Cr ?? 316-4249 ??Glutamine ? 578 ? nmol/mg Cr ?? 188-1365 ??Aspartic Acid ? 4 ? nmol/mg Cr ?? <11 ??Ethanolamine ?418 ? nmol/mg Cr ?? 158-596 ??Histidine ? 800 ? nmol/mg Cr ?? 134-1983 ??Threonine ? 135 ? nmol/mg Cr ?? 37-418 ??Citrulline ?4 ? nmol/mg Cr ?? <14 ??Sarcosine ? 0 ? nmol/mg Cr ?? <3 ??Beta-alanine ?13 ?nmol/mg Cr ?? <49 ??Alanine ? 182 ? nmol/mg Cr ?? 51-696 ??Glutamic Acid ? 7 ? nmol/mg Cr ?? <62 ??1-Methylhistid ine ? 631 ? nmol/mg Cr ?? 12-1549 ??3-Methylhistid ine ? 216 ? nmol/mg Cr ?? 47-262 ??Argininosuccin ic ?20 ?nmol/mg Cr ?? <69 ?Acid ??Carnosine ? 16 ?nmol/mg Cr ?? <109 ??Anserine ?7 ? nmol/mg Cr ?? <369 ??Homocitrulline ?15 ?nmol/mg Cr ?? <33 ??Arginine ?180 ?H ?nmol/mg Cr ?? <153 ??Alpha-aminoadi pic ? 42 ?nmol/mg Cr ?? <76 ?Acid ??Cietb-bzefh-m- ?5 ?H ?nmol/mg Cr ?? <5 ?butyric Acid ??Beta- ? 133 ? nmol/mg Cr ?? 11-286 ?aminoisobutyri c Acid ??Tcemv-chghy-c- ?22 ?nmol/mg Cr ?? <31 ?butyric Acid ??Hydroxylysine ? 18 ?nmol/mg Cr ?? <31 ??Proline ? 7 ? nmol/mg Cr ?? <28 ??Ornithine ? 11 ?nmol/mg Cr ?? <18 ??Cystathionine ? 7 ? nmol/mg Cr ?? <44 ??Cystine ? 45 ?nmol/mg Cr ?? <104 ??Lysine ?375 ?H ?nmol/mg Cr ?? 10-240 ??Methionine ?7 ? nmol/mg Cr ?? <20 ??Valine ?42 ?nmol/mg Cr ?? <75 ??Tyrosine ?80 ?nmol/mg Cr ?? 12-208 ??Isoleucine ?13 ?nmol/mg Cr ?? <28 ??Leucine ? 29 ?nmol/mg Cr ?? <62 ??Phenylalanine ? 47 ?nmol/mg Cr ?? 11-111 ??Tryptophan ?73 ?nmol/mg Cr ?? 15-229 ??Allo-isoleucin e ? 0 ? nmol/mg Cr ?? <8 ??Interpretation ?SEE COMMENTS ?(AAPD) In this urine sample, the excretion of lysine was mildly elevated. If the patient has a history of protein intolerance and hyperammonemia, consider ruling out a possible diagnosis of lysinuric protein intolerance. We need clinical information to provide further interpretation. ---ADDITIONAL INFORMATION----- Liquid Chromatography-T andem Mass Spectrometry (LC-MS/MS) Test Performed by: [place] [address] Sprayer Hand: Paco Emery II, M.D., Ph.D.(A) ALEC ODELL Urine specimen (specimen) 08/03/2015 11:41 AM EDT 08/03/2015 12:13 PM EDT Narrative Resulting Agency Comment Spec In Lab Tawanda Davis MD LAB SEND OUT ORDERAB LES ALEC ODELL * Organic Acids Screen, urine (08/03/2015 11:41 AM EDT) U Organic Acid Scr (FEBRUARY) SEE COMMENT ALEC ODELL Comment: RESULT: In this sample, there were no unusual organic acids. ADDITIONAL INFORMATION Gas Chromatography-Mass Spectrometry (GC/MS) Test Performed by: [place] [address] Sprayer Hand: Paco Emery II, M.D., Ph.D. Urine specimen (specimen) 08/03/2015 11:41 AM EDT 08/03/2015 12:13 PM EDT Narrative Resulting Agency Comment Spec In Lab Tawanda Davis MD LAB SEND OUT ORDERAB LES Performing Organization Address [facility] de Phone Number ALEC DIORIUM * 3-Methylglutaconic Acid, Urine (08/03/2015 11:41 AM EDT) U 3-Methylglut Acid 8.6 CERRUIZ MILLENNIUM Comment: Please see scanned report in Chart Review under the Non-DH Laboratory Heading. Reporting units: mg/g creatinine Reference range: ?0-2 years: ?6.6 +/- ??2.4 (SD) ? 2-12 years: ?5.3 +/- ??2.4 (SD) ?Adult: ?3.7 +/- ??1.8 (SD) Test performed by [facility], [address] [place] [address] Urine specimen (specimen) 08/03/2015 11:41 AM EDT 08/03/2015 12:14 PM EDT Narrative Resulting Agency Comment Spec In Lab Tawanda Davis MD LAB SEND OUT ORDERAB LES Performing Organization Address [facility] de Phone Number ALEC ODELL * Lyme Antibody Confirmation by Immunoblot (08/03/2015 11:35 AM EDT) Pathologist [facility] [place] Lyme IgG IB Negative Negative CERNER MILLENNIUM Lyme IgG Band(s) p66,p58 CERNER MILLENNIUM Lyme IgM IB Negative Negative CERNER MILLENNIUM Lyme IgM Band(s) no bands CERNER MILLENNIUM Lyme IB Interp Serologic respone to B. burgdorferi infection is not detected. CERNER MILLENNIUM Blood specimen (specimen) 08/03/2015 11:35 AM EDT 08/04/2015 7:51 AM EDT Narrative Resulting Agency Comment Spec In Lab Tawanda Davis MD IMMUNOLOGY ORDERABLE S Performing Organization Address City/[facility] Co de Phone Number CERNER MILLENNIUM * Differential, Automated (08/03/2015 11:35 AM EDT) Neutrophil % 42.8 % CERNER MILLENNIUM Neutrophil Absolute 2.33 1.50 - 8.00 x10(3)/mcL CERNER MILLENNIUM Lymph % 40.9 % CERNER MILLENNIUM Lymphocytes Abs 2.2 1.2 - 5.2 x10(3)/mcL CERNER MILLENNIUM Monocyte % 10.6 % CERNER MILLENNIUM Monocyte Abs 0.6 0.2 - 1.0 x10(3)/mcL CERNER MILLENNIUM Eos % 4.4 % CERNER MILLENNIUM Eosinophils Abs 0.2 0.0 - 0.5 x10(3)/mcL CERNER MILLENNIUM Basophil % 1.1 % CERNER MILLENNIUM Baso Absolute 0.1 0.0 - 0.2 x10(3)/mcL CERNER MILLENNIUM Immature Gran % 0.20 % CERN ER MILLENNIUM Comment: Immature granulocytes(IG's)percentage and absolute count will include metamyelocytes, myelocytes, and promyelocytes. Blood smears from CBCs yielding IG's will be scanned manually for concordance. If this scan disagrees with the automated IG or if promyelocytes are noted, a manual differential will be performed. Immature Gran Absolute 0.01 0.00 - 0.05 x10(3)/mcL CERNER MILLENNIUM Blood specimen (specimen) 08/03/2015 11:35 AM EDT 08/03/2015 11:45 AM EDT Narrative Resulting Agency Comment Spec In Lab Tawanda Davis MD HEMATOLOGY ORDERABLE S CERRUIZ SEWELLENNIUM * (ABNORMAL) Hemogram (08/03/2015 11:35 AM EDT) White Blood Cell 5.4 4.5 - 13.0 x10(3)/mc L CERNER MILLENNIUM Red Blood Cell 4.85 4.50 - 5.30 x10(6)/mc L CERNER MILLENNIUM Hemoglobin 13.5 13.0 - 16.0 gm/dL CERNER MILLENNIUM Hematocrit 38.5 37.0 - 49.0 % CERNER MILLENNIUM Mean Cell Volume 79.4 76.0 - 96.0 fL CERNER MILLENNIUM Mean Cell Hemoglobin 27.8 25.0 - 35.0 pg CERNER MILLENNIUM Mean Cell Hemoglobin Concentration 35.1 32.0 - 36.5 gm/dL CERNER MILLENNIUM Platelet 379(H) 145 - 370 x10(3)/mc L CERNER MILLENNIUM RDW Standard Deviation 37.6 35.0 - 46.0 fL CERNER MILLENNIUM RDW coefficient of variation 13.3 10.9 - 14.4 % CERNER MILLENNIUM Mean Platelet Volume 9.1 9.0 - 12.0 fL CERRUIZ MILLENNIUM Blood specimen (specimen) 08/03/2015 11:35 AM EDT 08/03/2015 11:45 AM EDT Narrative Resulting Agency Comment Spec In Lab Tawanda Davis MD HEMATOLOGY ORDERABLE S Performing Organization Address [facility] Co de Phone Number ALEC DIORIUM * GEOMORPHOLOGIST (08/03/2015 11:35 AM EDT) GEOMORPHOLOGIST (Result) Complete ALEC DIORIUM Blood specimen (specimen) 08/03/2015 11:35 AM EDT 08/03/2015 2:07 PM EDT Narrative Resulting Agency Comment Spec In Lab Tawanda Davis MD CHEMISTRY ORDERABLES Performing Organization Address City/[facility]/ZIP Co de Phone Number ALEC DIORIUM * Uric acid (08/03/2015 11:35 AM EDT) Uric Acid 3.6 2.7 - 6.7 mg/dL ALEC DIORIUM Blood specimen (specimen) 08/03/2015 11:35 AM EDT 08/03/2015 11:45 AM EDT Narrative Resulting Agency Comment Spec In Lab Tawanda Davis MD CHEMISTRY ORDERABLES ALEC DIORIUM * Triglyceride (08/03/2015 11:35 AM EDT) Triglyceride 111 <=149 mg/dL [facility] Comment: Reference Range: Normal triglycerides: ??<150 mg/dL Borderline high: ??150-199 mg/dL High: ??200-499 mg/dL Very high: ??>dv=550 mg/dL ISAAC 2001; 285(19):1074-8110 Blood specimen (specimen) 08/03/2015 11:35 AM EDT 08/03/2015 11:45 AM EDT Narrative Resulting Agency Comment Spec In Lab Tawanda Davis MD CHEMISTRY ORDERABLES Performing Organization Address [facility]/ZIP Co de Phone Number [facility] * HDL/Cholesterol Profile (08/03/2015 11:35 AM EDT) Cholesterol, Total 131 <=199 mg/dL [facility] Comment: Recommendations of the NCEP Adult Treatment Panel for the following risk cutoff thresholds for the [place] population: Desirable: <200 mg/dL Borderline High: 200-239 mg/dL High: > or = 240 mg/dL HDL Cholesterol 45 >=40 mg/dL [facility] Comment: Reference range: ??Low HDL: ?? < 40 mg/dL ??Normal: ?40-60 mg/dL ??Desirable: > 60 mg/dL ISAAC 2001; 285(19):2578-5238 Cholesterol/HDL Ratio 2.9 ratio [facility] Comment: A Cholesterol to HDL ratio below 4:1 is desirable. ??Studies suggest that increased CAD risk occurs at ratios above 5 for females and above 6 for men. ? [place] Heart Association ??(http://www.americanheart.org) ? [place] Int Med, 1994; 121:641 ? AM J Med, 1998; 105(1A):48S Blood specimen (specimen) 08/03/2015 11:35 AM EDT 08/03/2015 11:45 AM EDT Narrative Resulting Agency Comment Spec In Lab Tawanda Davis MD CHEMISTRY ORDERABLES Performing Organization Address [facility]/ZIP Co de Phone Number [facility] * Lactate, plasma (08/03/2015 11:35 AM EDT) Lactic Acid 1.3 0.5 - 2.2 mmol/L ALEC ODELL Blood specimen (specimen) 08/03/2015 11:35 AM EDT 08/03/2015 11:43 AM EDT Narrative Resulting Agency Comment Spec In Lab Tawanda Davis MD CHEMISTRY ORDERABLES Performing Organization Address [facility] Co de Phone Number [facility] * Ammonia (08/03/2015 11:35 AM EDT) Ammonia 21 16 - 60 mcmol/L [facility] Blood specimen (specimen) 08/03/2015 11:35 AM EDT 08/03/2015 11:43 AM EDT Narrative Resulting Agency Comment Spec In Lab Tawanda Davis MD CHEMISTRY ORDERABLES Performing Organization Address [facility] Co de Phone Number [facility] * Acylcarnitines, plasma, quantitative (08/03/2015 11:35 AM EDT) Acylcarnitine Qnt (MAY) Test ?Result ? Flag ??Unit ?? RefValue -------- Acylcarnitines, Quantitative, P ??Acetylcarnit ??4.53 ? nmol/mL ?ine, C2 REFEREN CE VALUE ----- 2.00-17.83 (> or = 8 years) ??Propionylcar ??0.66 ? nmol/mL ?nitine, C3 REFEREN CE VALUE ----- < 0.88 (> or = 8 years) ??Iso- ?0.31 ? nmol/mL ?/Butyrylcarnitine, C4 REFEREN CE VALUE ----- < 0.83 (> or = 8 years) ??Isovaleryl- ?? 0.17 ? nmol/mL ?/2-Methylbutyrylcarn C5 REFEREN CE VALUE ----- < 0.51 (> or = 8 years) ??Hexanoylcarn ??0.02 ? nmol/mL ?itine, C6 REFEREN CE VALUE ----- < 0.17 (> or = 8 years) ??3-OH- ? 0.01 ? nmol/mL ?hexanoylcarnitine, C6-OH REFEREN CE VALUE ----- < 0.09 (> or = 8 years) ??Octenoylcarn ??0.20 ? nmol/mL ?itine, C8:1 REFEREN CE VALUE ----- < 0.88 (> or = 8 years) ??Octanoylcarn ??0.07 ? nmol/mL ?itine, C8 REFEREN CE VALUE ----- < 0.78 (> or = 8 years) ??Decenoylcarn ??0.04 ? nmol/mL ?itine, C10:1 REFEREN CE VALUE ----- < 0.47 (> or = 8 years) ??Decanoylcarn ??0.04 ? nmol/mL ?itine, C10 REFEREN CE VALUE ----- < 0.88 (> or = 8 years) ??Glutarylcarn ??0.02 ? nmol/mL ?itine, C5-DC REFEREN CE VALUE ----- < 0.11 (> or = 8 years) ??Dodecenoylca ??0.02 ? nmol/mL ?rnitine, C12:1 REFEREN CE VALUE ----- < 0.35 (> or = 8 years) ??Dodecanoylca ??0.03 ? nmol/mL ?rnitine, C12 REFEREN CE VALUE ----- < 0.26 (> or = 8 years) ??3-OH- ? 0.03 ? nmol/mL ?dodecanoylcarnitine, C12-OH REFEREN CE VALUE ----- < 0.08 (> or = 8 years) ??Tetradecadie ??Below detection limit. ? nmol/mL ?noylcarnitine, C14:2 A quantitative value cannot be provided because the concentration of tetradecadienoylcarnitine is below the assay's limit of detection, <0.02 nmol/mL. REFEREN CE VALUE ----- < 0.18 (> or = 8 years) ??Tetradecenoy ??0.02 ? nmol/mL ?lcarnitine, C14:1 REFEREN CE VALUE ----- < 0.24 (> or = 8 years) ??Tetradecanoy ??0.02 ? nmol/mL ?lcarnitine, C14 REFEREN CE VALUE ----- < 0.12 (> or = 8 years) ??3-OH- ? 0.01 ? nmol/mL ?tetradecenoylcarnitine C14:1OH REFEREN CE VALUE ----- < 0.13 (> or = 8 years) ??3-OH- ? 0.00 ? nmol/mL ?tetradecanoylcarnitine, C14-OH REFEREN CE VALUE ----- < 0.08 (> or = 8 years) ??Hexadecenoyl ??0.01 ? nmol/mL ?carnitine, C16:1 REFEREN CE VALUE ----- < 0.10 (> or = 8 years) ??Hexadecanoyl ??0.06 ? nmol/mL ?carnitine, C16 REFEREN CE VALUE ----- < 0.23 (> or = 8 years) ??3-OH- ? 0.01 ? nmol/mL ?hexadecenoylcarnitine,C1 6:1-OH REFEREN CE VALUE ----- < 0.06 (> or = 8 years) ??3-OH- ? 0.00 ? nmol/mL ?hexadecanoylcarnitine, C16-OH REFEREN CE VALUE ----- < 0.06 (> or = 8 years) ??Linoleylcarn ??0.03 ? nmol/mL ?itine, C18:2 REFEREN CE VALUE ----- < 0.24 (> or = 8 years) ??Oleylcarniti ??0.06 ? nmol/mL ?ne, C18:1 REFEREN CE VALUE ----- < 0.39 (> or = 8 years) ??Stearoylcarn ??0.04 ? nmol/mL ?itine, C18 REFEREN CE VALUE ----- < 0.14 (> or = 8 years) ??3-OH- ? Below detection limit. ? nmol/mL ?linoleylcarnitine, C18:2-OH A quantitative value cannot be provided because the concentration of 5-MM-ylgtxcwkyqomkryumewqs ine is below the assay's limit of detection, <0.02 nmol/mL. REFEREN CE VALUE ----- < 0.06 (> or = 8 years) ??3-OH- ? Below detection limit. ? nmol/mL ?oleylcarnitine, C18:1-OH A quantitative value cannot be provided because the concentration of 4-PK-uiynyxninzzdunugsdrdx is below the assay's limit of detection, <0.01 nmol/mL. REFEREN CE VALUE ----- < 0.06 (> or = 8 years) ??Comment In this sample, the acylcarnitine profile was normal. Test Performed by: [address] [address] Sprayer Hand: Paco Emery II, M.D., Ph.D. ALEC ODELL Blood specimen (specimen) 08/03/2015 11:35 AM EDT 08/03/2015 12:13 PM EDT Narrative Resulting Agency Comment Spec In Lab Tawanda Davis MD LAB SEND OUT ORDERAB LES ALEC ODELL * Carnitine (08/03/2015 11:35 AM EDT) Carnitine Test ? Result ?Flag ??Unit ? RefValue Carnitine, S ??Total ?51 ?nmol/mL ??34-77 ??Free (FC) ?41 ?nmol/mL ??22-65 ??Acylcarnitine (AC) ? 10 ?nmol/mL ??4-29 ??AC/FC Ratio ?0.2 ?0.1-0.9 ??Interpretation In this sample, the carnitine profile was normal. Test Performed by: [address] [address] Sprayer Hand: Paco Emery II, M.D., Ph.D. [facility] Blood specimen (specimen) 08/03/2015 11:35 AM EDT 08/03/2015 1:59 PM EDT Narrative Resulting Agency Comment Spec In Lab Tawanda Davis MD LAB SEND OUT ORDERAB LES Performing Organization Address [facility] Co de Phone Number [facility] * VIT D Total Evaluation (08/03/2015 11:35 AM EDT) Pathologist [facility] [place] Vitamin D Total 25 OH 37 30 - 100 ng/mL [facility] Comment: Deficient <10 ng/mL Insufficient 10 to 29 ng/mL Sufficient 30 to 100 ng/mL Potential Intoxication >100 ng/mL According to the [place] National Osteoporosis Foundation, Vitamin D concentrations >30 ng/mL are sufficient to protect bone health. ??The National Kidney Foundation has similarly stated that patients with Vitamin D concentrations <30ng/mL should be considered to be insufficient or deficient. http://ArtsApp/DHMCnatlkidneyfoundation http://ArtsApp/DHMCVitD The IDS iSYS Vitamin D Immunoassay detects both 25-OH Vitamin D2 and 25-OH Vitamin D3, but only a total Vitamin D concentration is reported. Blood specimen (specimen) 08/03/2015 11:35 AM EDT 08/03/2015 11:45 AM EDT Narrative Resulting Agency Comment Spec In Lab Tawanda Davis MD CHEMISTRY ORDERABLES Performing Organization Address [facility] Co de Phone Number [facility] * T4, free (08/03/2015 11:35 AM EDT) Free T4 1.33 0.93 - 1.70 ng/dL CERNER MILLENNIUM Blood specimen (specimen) 08/03/2015 11:35 AM EDT 08/03/2015 11:45 AM EDT Narrative Resulting Agency Comment Spec In Lab Tawanda Davis MD CHEMISTRY ORDERABLES Performing Organization Address [facility] de Phone Number ALEC DIORIUM * TSH (08/03/2015 11:35 AM EDT) Thyroid Stimulating Hormone 1.50 0.80 - 4.20 mcIU/mL ALEC DIORIUM Blood specimen (specimen) 08/03/2015 11:35 AM EDT 08/03/2015 11:45 AM EDT Narrative Resulting Agency Comment Spec In Lab Tawanda Davis MD CHEMISTRY ORDERABLES Performing Organization Address [facility] Phone Number ALEC DIORIUM * Tissue transglutaminase, IgA (08/03/2015 11:35 AM EDT) TTG IgA Ab 0.5 0.1 - 10.0 u/ml [facility] OVIIUM Comment: New methodology as of 02-15-2015 Negative = <7 U/mL Equivocal = 7-10 U/mL Positive = >10 U/mL Blood specimen (specimen) 08/03/2015 11:35 AM EDT 08/04/2015 8:08 AM EDT Narrative Resulting Agency Comment Spec In Lab Tawanda Davis MD IMMUNOLOGY ORDERABLE S Performing Organization Address [facility] de Phone Number ALEC ODELL * (ABNORMAL) Lyme IgG & IgM Antibody (08/03/2015 11:35 AM EDT) Lyme Antibody Pos(A) Neg [facility] MELODIEENNIUM Lyme Ab Comment Confirmation to follow. ALEC DIORIUM Blood specimen (specimen) 08/03/2015 11:35 AM EDT 08/04/2015 7:51 AM EDT Narrative Resulting Agency Comment Spec In Lab Tawanda Davis MD IMMUNOLOGY ORDERABLE S Performing Organization Address City/[facility]/ZIP Co de Phone Number [facility] * CK (08/03/2015 11:35 AM EDT) Creatine Kinase 47 0 - 400 unit/L ALEC ODELL Blood specimen (specimen) 08/03/2015 11:35 AM EDT 08/03/2015 11:45 AM EDT Narrative Resulting Agency Comment Spec In Lab Tawanda Davis MD CHEMISTRY ORDERABLES Performing Organization Address City/[facility]/ZIP Co de Phone Number [facility] * GEOMORPHOLOGIST Report (08/03/2015 11:06 AM EDT) Chromosome Microarray, SNP Microarray Report [facility] Molecular Pathology Laboratory [place] [id number] Indication for Study: ??Developmental delay Specimen: Blood Collection Date/Time: 08/03/2015 11:35 Received Date/Time: 08/03/2015 14:07 RESULTS: ??Normal Microarray Results, Male ?arr(1-22)x2,(XY) x1 INTERPRETATION: No copy number changes of clinical significance were detected in the genomic DNA of this patient using the CytoScan HD array. ??This microarray uses approximately 750,000 SNP probes and 1.9 million non-polymorphic probes to detect chromosomal gains, losses and long contiguous stretches of homozygosity (LCSHs) throughout the human genome. LCSH detection may suggest identity by descent or some forms of uniparental disomy (UPD). Please contact the Molecular Pathology Laboratory at [facility] to request additional LCSH analysis if needed. METHODS: ??DNA was isolated from peripheral whole blood, treated ??and hybridized to a CytoScan HD microarray containing approximately 750,000 SNP probes and 1.9 million non-polymorphic probes designed to detect DNA abnormalities throughout the genome but specifically targeting regions recommended by the International Standards for Cytogenomic Array (ISCA) consortium(1-2). ??The average spacing between probes within genes is 880 base pairs and 384 base pairs for a set of 340 ISCA genes. ??Current medical literature along with several databases of copy number variants and other genomic resources were used during the interpretation, including: ??the ISCA consortium database, Online Mendelian Inheritance in Man (OMIM), DECIPHER, the Database of Genomic Variants. ??The information in these resources is updated regularly and current at the time of testing. ??New information not available at the time of testing may result in altered interpretation if data from this microarray are re-analyzed at a future date. ??The analysis of the array and nucleotide positions given are based on the human genome build [id number]/hg19. DNA from this patient contained the following copy number variants that are currently of no known clinical significance: [id number]:[id number] ,624,614 (Xp11.4) copy number gain (x2) 148 kb [[id number]] LIMITATIONS AND DISCLAIMERS: ??The test is designed to detect aneuploidy as well as gains and losses of loci represented on the microarray (please contact the Molecular Pathology laboratory for more details if needed). ??Low-level mosaicism, balanced translocations and heterodisomic uniparental disomy cannot be detected by this method. ??Normal results do not rule out the diagnosis of a disorder since some abnormalities may not be detected by this technology. ??The interpretation of the array findings are influenced by information given by the ordering clinician regarding the patient? s phenotype and clinical indications for testing. ??Information not provided to the laboratory at the time of ordering may negatively impact the interpretation. The interpretation given is based on information available at the time testing was performed. ??A genetics consultation is recommended for further interpretation of these results and correlation with the patient? s full clinical presentation and family history. This test was developed and its performance characteristics determined by the [facility] Molecular Pathology Laboratory. It has not been cleared or approved by the U.S. Food and Drug Administration (FDA). The FDA has determined that such clearance or approval is not necessary. This test is used for clinical purposes. It should not be regarded as investigational or for research. This laboratory is certified under the Clinical Laboratory Improvement Amendments of 1988 (CLIA) as qualified to perform high-complexity clinical laboratory testing. 1. LIANG Nogueira, et al. Consensus Statement: Chromosomal Microarray Is a First-Tier Clinical Diagnostic Test for Individuals with Developmental Disabilities or Congenital Anomalies. The [place] Journal of Human Genetics (2010) 86, 608? 197. 2. https://www.iscaco nsortium.org/ Reviewed by: Carter Livingston, PhD ?Linseed Oil Order Filler, Molecular Pathology [facility] 08/03/2015 11:0 6 AM EDT Tawanda Davis MD CHEMISTRY ORDERABLES [facility] documented in this encounter Visit Diagnoses Diagnosis Developmental delay Lack of normal physiological development, unspecified Developmental regression Unspecified delay in development Developmental delay Lack of normal physiological development, unspecified Developmental delay Lack of normal physiological development, unspecified documented in this encounter Care Teams Market Research Lead Relationship Specialty Start Date End Date Kiersten Christianson MD [address] [place] [address] PCP - General 09/05/10 02/26/22 documented as of this encounter
--- OUTSIDE RECORDS SUMMARY | 2024-06-05 17:33 | XMS_ITS | Encounter Summary ---
Author Organization [facility] [place] [address] Care Team Providers Care Veterans Employment Representative Name Role Phone Robel Christianson MD Primary Care Provider [phone] Encounter Details Date Type Department Care Team (Late st Contact Info) Description 10/30/2017 External Results [place] [phone] Unknown None Social History Tobacco Use Types Packs/Day Years Used Date Smoking Tobacco: Never Smokeless Tobacco: Never Sex and Gender Information Value Date Recorded Sex Assigned at Not on file Gender Identity Not on file Sexual Orientation Not on file documented as of this encounter Plan of Treatment Not on file documented as of this encounter Procedures Procedure Name Priority Date/Time Associated Diagnosis Comments ECG SCAN Routine 08/13/2016 documented in this encounter Results * Scan Doc: ECG (08/13/2016) Unknown MEDIA MGR SCAN EXT O RDR/RSLT documented in this encounter Visit Diagnoses Not on filedocumented in this encounter Care Teams Veterans Employment Representative Relationship Specialty Start Date End Date Robel Christianson MD [address] [place] [address] PCP - General 09/05/10 02/26/22 documented as of this encounter
--- OUTSIDE RECORDS SUMMARY | 2024-06-05 17:33 | XMS_ITS | Clinical Summary ---
Author Organization [facility] Address [facility] [place] [address] Care Team Providers Care Roping Machine Tender Name Role Phone Unknown Primary Care Provider Unavailabl e Allergies No known active allergies Medications No known medications Active Problems Problem Noted Date Diagnosed Date Syncope 09/24/2017 Overview (10/23/2017): 08-13-16 Had gone grbjk-gm-ijgnwoof. Seated at dinner table and fell to the floor. LOC for ~ 1 minute. No seizure activity. 911 activated. C/o nausea in ambulance [place] better after eating in ER 08-13-16 EKG: [...] to minutes. 09-24-17 CT (head): normal 09-24-17 EKG (over read by Dr Miller): normal 09/24 - normal recoding demonstrating sinus rhythm and rare ectopy Intellectual disability 01/05/2016 Cerebral palsy 01/05/2016 Hypotonia 12/07/2015 Transient alteration of awareness 08/29/2015 Developmental delay 08/03/2015 Overview (08/03/2015): Language primarily PFO (patent foramen ovale) 11/28/2010 Overview (10/22/2017): Study Date: 03/08/2015 There is a tiny PFO with left to right shunting. There is no secundum ASD. Congenital aortic valve anomaly Overview (10/24/2017): 11-24-10 ECHO: aortic valve appears bicommissural. small secundum atrial septal defect. Measures 3-4mm in diameter. Left to right shunting. No evidence of aortic valve stenosis. Trace aortic regurgitation 03-08-15 ECHO: Aortic valve appears normal. Trace aortic regurgitation No SBE precautions. No activity restrictions. Follow up 02/2020 with echo Resolved Problems Problem Noted Date Diagnosed Date Resolved Date Developmental regression 08/03/2015 Bicuspid aortic valve 2014 Congenital heart disease 06/2018 Family History Medical History Relation Comments Hyperlipidemia Father Anxiety Disorder Mother Asthma Sister Relation Status Comments Father Mother Alive Sister Alive Social History Tobacco Use Types Packs/Day Years Used Date Smoking Tobacco: Never Smokeless Tobacco: Never Sex and Gender Information Value Date Recorded Sex Assigned at Not on file Gender Identity Not on file Sexual Orientation Not on file Last Filed Vital Signs Vital Sign Reading Time Taken Comments Blood Pressure 110/55 10/22/2017 10:39 AM EST Pulse 63 10/22/2017 10:39 AM EST Temperature - - Respiratory Rate 24 10/22/2017 10:39 AM EST Oxygen Saturation 100% 10/22/2017 10:39 AM EST Inhaled Oxygen Concentration - - Weight 44.3 kg (97 lb 9.6 oz) 10/22/2017 10:39 A M EST Height 167.6 cm (5' 6) 10/22/2017 10:39 AM EST Body Mass Index 15.75 10/22/2017 10:39 AM EST Plan of Treatment Health Maintenance Due Date Last Done Comments HPV vaccine (1 - Male 3-dose series) 2017 HIV screen 2020 Hepatitis C Screening 2020 Hepatitis B vaccine (0-59 yrs) (1) 2021 Tdap adult 2021 Tetanus vaccine 2021 Covid-19 Vaccine (1 - 2022-24 season) 2023 Influenza (Flu) vaccine (1 o f 1 - Influenza standard series) 06/14/2024 Care Teams Roping Machine Tender Relationship Specialty Start Date End Date Unknown None PCP - General 02/27/22
--- OUTSIDE RECORDS SUMMARY | 2024-06-05 17:33 | XMS_ITS | Encounter Summary ---
Author Organization [facility] [place] [address] Care Team Providers Care Errand Runner Name Role Phone Robel Christianson MD Primary Care Provider [phone] Encounter Details Date Type Department Care Team (Late st Contact Info) Description 03/01/2014 Orders Only [place] [id number] Jasbir Farrar MD [facility] [place] [address] ASD (atrial septal defect); Aortic valve defect Social History Tobacco Use Types Packs/Day Years Used Date Smoking Tobacco: Never Assessed Sex and Gender Information Value Date Recorded Sex Assigned at Not on file Gender Identity Not on file Sexual Orientation Not on file documented as of this encounter Plan of Treatment Not on file documented as of this encounter Results * Echocardiogram Transthoracic(Leb) (03/08/2015 1:36 PM EDT) Anatomical Region Laterality Modality Other 03/08/2015 Narrative 03/08/2015 4:05 PM EDT Amended Report Procedure: ? Pediatric Echocardiogram Patient: ? RILEY Akhtar ? (Age): 2000(14) Med Rec#: ?[id number] ? Sex: ?M ? Site Loc: ?[facility] [place] ? Ht / Wt: ??144.2(cm)/28.1( Pt. Loc: ? Echo Lab ? BSA: ?1.06 Study Date: ?03/08/2015 ? Pt. Type: Outpatient Study Quality: ?Tape: ? 33 Referring: Eliseo Miller B. ([id number]) Custom Furrier: Kim Loza Diagnosis: ??PFO (745.5) CPT Code(s): ??Color Doppler (26311), ??Doppler LTD (42029), ??Echo Matty LTD (91486), Indication(s): ??Patent foramen ovale Rhythm: Sinus HR [...] 03/08/2015 16:05:34 Images reviewed and interpretation verified [facility] Cardiac Ultrasound Laboratory Procedure Note Eliseo Miller MD - 03/08/2015 Amended Report Procedure: Pediatric Echocardiogram Patient: RILEY Akhtar DOB(Age): 2000(14) Med Rec#: [id number] Sex: M Site Loc: [facility] [place] Ht / Wt: 144.2(cm)/28.1( Pt. Loc: Echo Lab BSA: 1.06 Study Date: 03/08/2015 Pt. Type: Outpatient Study Quality: Tape: 33 Referring: Eliseo Miller B. ([id number]) Custom Furrier: Kim Loza Diagnosis: PFO (745.5) CPT Code(s): Color Doppler (08611), Doppler LTD (45428), Echo Matty LTD (09982), Indication(s): Patent foramen ovale Rhythm: Sinus HR [...] 03/08/2015 16:05:34 Images reviewed and interpretation verified [facility] Cardiac Ultrasound Laboratory Jasbir Farrar MD ECHO ORDERABLES documented in this encounter Visit Diagnoses Diagnosis ASD (atrial septal defect) Ostium secundum type atrial septal defect Aortic valve defect Aortic valve disorders ASD (atrial septal defect) Ostium secundum type atrial septal defect Aortic valve defect Aortic valve disorders documented in this encounter Care Teams Errand Runner Relationship Specialty Start Date End Date Robel Christianson MD [address] [place] [address] [place] [address] PCP - General 09/05/10 02/26/22 documented as of this encounter
--- OUTSIDE RECORDS SUMMARY | 2024-06-05 17:33 | XMS_ITS | Encounter Summary ---
Author Organization [facility] Address [address] [place] [address] Care Team Providers Care Telehealth Nurse Name Role Phone Unavailable Primary Care Provider Unavailabl e Encounter Details Date Type Department Care Team (Late st Contact Info) Description 09/22/2007 14:03 [facility] Hospital Encounter [facility] [address], [place] [id number] [phone] Rebecca Lawrence MD [address] [place] [address] Social History Tobacco Use Types [...]
--- OUTSIDE RECORDS SUMMARY | 2024-06-05 17:33 | XMS_ITS | Encounter Summary ---
Author Organization [facility] [place] [address] Care Team Providers Care Small Offset Printer Name Role Phone Robel Christianson MD Primary Care Provider [phone] Encounter Details Date Type Department Care Team (Latest Contact Info) Description 12/07/2015 10:25 AM EST Laboratory Appointment Lab [facility] [place] [address] Developmental delay; Developmental regression Social History Tobacco [...] Procedure Name Priority Date/Time Associated Diagnosis Comments AMINO ACIDS, PLASMA, QUANTITATIVE Routine 12/07/2015 10:46 AM EST Developmental delay Developmental regression documented in this encounter Results * (ABNORMAL) Amino Acids, [...] pic Acid ? 1 ? nmol/mL ??<3 ??Ijcep-gyumn-j- butyric ?0 ? nmol/mL ??<3 ?Acid ??Beta-aminoisob utyric Acid ??2 ? nmol/mL ??<5 ??Saoan-lbqwz-e- butyric ?18 ?nmol/mL ??7-31 ?Acid ??Hydroxylysine ?0 [...] andem Mass Spectrometry (LC-MS/MS) Test Performed by: [place] [address] Pillar Man: Paco Emery II, M.D., Ph.D.(A) [facility] Blood specimen (specimen) 12/07/2015 10:46 AM EST 12/07/2015 12:43 PM EST Narrative Resulting Agency Comment Spec In Lab Tawanda Davis MD LAB SEND OUT ORDERAB LES Performing Organization Address City/State/[facility] Co de Phone Number [facility] [place] [address] documented in this encounter Visit Diagnoses Diagnosis Developmental delay Lack of normal physiological development, unspecified Developmental regression Unspecified delay in development documented in this encounter Care Teams Small Offset Printer Relationship Specialty Start Date End Date oRbel Christianson MD [address] [place] [address] PCP - General 09/05/10 02/26/22 documented as of this encounter
--- OUTSIDE RECORDS SUMMARY | 2024-06-05 17:33 | XMS_ITS | Encounter Summary ---
Author Organization [facility] [place] [address] Care Team Providers Care Holistic Nutritionist Name Role Phone Kiersten Garcia MD Primary Care Provider [phone] Encounter Details Date Type Department Care Team (Late st Contact Info) Description 08/29/2015 Telephone [place] [phone] Tawanda Davis MD [facility] [place] [address] Social History Tobacco Use Types Packs/Day Years Used Date Smoking Tobacco: Never Smokeless Tobacco: Never Sex and Gender Information Value Date Recorded Sex Assigned at Not on file Gender Identity Not on file Sexual Orientation Not on file documented as of this encounter Miscellaneous Notes * Telephone Encounter - Tawanda Davis MD - 08/29/2015 12:49 PM EST PEDI NEUROLOGY SERVICE ATTENDING NOTE CHIEF COMPLAINT: I was asked to consult by KIERSTEN GARCIA MD to evaluate and assist with management of the following problems: Patient Active Problem List Diagnosis Code ??? PFO (patent foramen ovale) Q21.1 ??? Aortic valve defect I35.9 ??? Developmental delay R62.50 ??? Developmental regression R62.50 ??? Transient alteration of awareness R40.4 HISTORY OF PRESENT ILLNESS: The history was [...] febrile seizures. Underlying diagnosis: Unknown. Evaluated by cryptographic clerk Dr. Rebecca Lawrence who found no syndrome. [...] rarely finishes his firsts. MEDS: I reviewed [employer] database. REVIEW OF SYSTEMS: As above. No other EENT, cardiac, respiratory, gastrointestinal, genitourinary, musculoskeletal, skin, hematologic, endocrine, ID, psychiatric, or neurologic complaints. PAST MEDICAL HISTORY: Past Medical History Diagnosis Date ??? ASD (atrial septal defect) ??? Bicuspid aortic valve ??? Aortic valve defect ??? Developmental delay 08/03/2015 ??? Developmental regression 08/03/2015 ??? Transient alteration of awareness 08/29/2015 ??? : No infections, trauma, surgery or [...] ??? Immunizations up to date: I reviewed [facility] database. ??? Allergies: I reviewed ED database FAMILY HISTORY: No consanguinity. Maternal Ethnic background [place] family of [employer]. Paternal Ethnic background RENNY Alexander.. No history of miscarriages; SIDS; defects orchromosomal abnormalities; developmental delay; learning disabilities; mental retardation; childhood deafness or blindness; childhood diabetes; neuromuscular or neurodegenerative disorders; seizures;ADHD; Autism; Schizophrenia; or CV disease or stroke in children < age of 40 years. SOCIAL HISTORY: Lives at home with parents and siblings. CURRENT HOME/SCHOOL-BASED SERVICES: [employer]. CURRENT MEDICAL SPECIALTY DIET/RESTRICTIONS: [employer]. PHYSICAL EXAM: I reviewed [employer] database for vital signs and growth parameters. There is no height or weight on file to calculate BMI. HC: 75%; L 15% W<<5%. General: No acute distress. HEENT: Normocephalic, TM's [...] and images myself in detail and entirety. Imaging Studies: MRI Brain WO Contrast Gene Studies: ?? Chromosome microarray, SNP: normal. Heme and Inflammatory Studies: CBC (with Diff): Lyme IgG & IgM Antibody Tissue transglutaminase, IgA EEGs: ?? August, 24 Hour EEG, Portable: normal; no push button events. No ESES. Small Molecule Disease Studies: Uric acid Triglyceride HDL/Cholesterol Profile Lactate, plasma Ammonia Organic Acids Screen, urine: Normal 3-Methylglutaconic Acid, [...] Quantitative Urine: normal. Acylcarnitines, plasma, quantitative: normal. . Carnitine CK TSH T4, free VIT D Total Evaluation Amino Acids, Urine, Quantitative: the excretion of [...] syndromes. False negative results have been observed. ASSESSMENT and COMPLEX DECISION MANAGEMENT: PROBLEM LIST: Patient Active Problem List Diagnosis Code ??? PFO (patent foramen ovale) Q21.1 ??? Aortic valve defect I35.9 ??? Developmental delay R62.50 ??? Developmental regression R62.50 ??? Transient alteration of awareness R40.4 LEVEL OF RISK:worrisome because of his lost skills. Worsening is possible unless we find a treatable cause for his difulties. PLAN: ?? Try to get Dr. Davis' developmental notes from Dr. Kiersten Garcia's office. I think Dr. Casillas is no longer working. ?? Try to get Dr. Rebecca Lawrence's Genetics notes from Dr. Kiersten Garcia's office. ?? Follow up with ME or Brittany Saini or Yarely Aguilera in 2 months. ?? Gene Microarray. ?? 24 hour ambulatory EEG. ?? Brain MRI without sedation. Tawanda Davis MD [facility] #[id number] Copy: MD [address] / [facility] [id number] documented in this encounter Plan of Treatment Not on file documented as of this encounter Visit Diagnoses Diagnosis Developmental regression Unspecified delay in development Developmental delay Lack of normal physiological development, unspecified documented in this encounter Care Teams Holistic Nutritionist Relationship Specialty Start Date End Date Kiersten Garcia MD [address] [place] [address] PCP - General 09/05/10 02/26/22 documented as of this encounter
--- OUTSIDE RECORDS SUMMARY | 2024-06-05 17:33 | XMS_ITS | Encounter Summary ---
Author Organization [facility] [address] Care Team Providers Care Manager Budget Name Role Phone Robel Christianson MD Primary Care Provider [phone] Encounter Details Date Type Department Care Team (Late st Contact Info) Description 10/18/2017 External Results [place] [address] Unknown None Social History Tobacco [...] Procedure Name Priority Date/Time Associated Diagnosis Comments LAB SCAN Routine 09/24/2017 DIAGNOSTIC RADIOLOGY SCAN Routine 09/24/2017 ECG SCAN Routine 09/24/2017 ECG SCAN Routine 08/13/2016 documented in this encounter Results * Scan Doc: Lab (09/24/2017) Unknown MEDIA MGR SCAN EXT O RDR/RSLT * Scan Doc: Diagnostic Radiology (09/24/2017) Anatomical Region Laterality Modality Other Unknown MEDIA MGR SCAN EXT O RDR/RSLT * Scan Doc: ECG (09/24/2017) Unknown MEDIA MGR SCAN EXT O RDR/RSLT * Scan Doc: ECG (08/13/2016) Unknown MEDIA MGR SCAN EXT O RDR/RSLT documented in this encounter Visit Diagnoses Not on filedocumented in this encounter Care Teams Manager Budget Relationship Specialty Start Date End Date Robel Christianson MD [address] [place] [id number] PCP - General 09/05/10 02/26/22 documented as of this encounter
--- OUTSIDE RECORDS SUMMARY | 2024-06-05 17:33 | XMS_ITS | Encounter Summary ---
Author Organization [facility] Address [address] [place] [address] Care Team Providers Care Venetian Blind Washer Name Role Phone Unavailable Primary Care Provider Unavailabl e Encounter Details Date Type Department Care Team (Late st Contact Info) Description 09/22/2007 Before PRISM Converted Visit (Maple) [facility] - Maple conversion [address], [place] [phone] Rebecca Lawrence MD [address] [place] [address] Social History Tobacco Use Types Packs/Day Years Used Date Smoking Tobacco: Never Assessed Sex and Gender Information Value Date Recorded Sex Assigned at Not on file Gender Identity Not on file Sexual Orientation Not on file documented as of this encounter Consult Notes * Rebecca Lawrence MD - 08/24/2009 1316 EST CONSULTATION - Sumit is a 7-year-old boy who is seen at the request of Dr. Robel Christianson of [facility] for an evaluation related to his developmental delay and speech delays. FAMILY HISTORY: Sumit is the second child born to his parents. He has a 7-year-old sister who needed some speech therapy when she was younger for language acquisition but is now doing well in school and has no issues. His mother also had a miscarriage at 2 months. His mother is 39 years old and has problems withanxiety and depression. She has 1 full sister who has asthma and 2 healthy children, and she has 2 half sisters through her father, one of whom was born with a patent ductus arteriosus that required surgery at 3 years of age and the other sister has no known health problems. Her fatheris 65 years old and healthy and has healthy brothers and sisters and nieces and nephews. Her mother is 64 years old and had breast cancer diagnosed at age 50 but is now doing well. She had a brother who in his 40s of complications with juvenile onset diabetes and a sister who is in her 70s andhas melanoma. She is of [place] descent. Sumit's father is 45 years old and is healthy. He has 1 healthy brother who has 2 children, one of whom is a daughter with autism and another healthy sister who has no children. He also has a half-sister through his mother and a half-sister through his father, both of whom are healthy. His half-sister through his father has one healthy daughter. His parents are alive and well and have multiple sib lings and nieces and nephews. He is of descent but his ethnicity is not known. There is no history of consanguinity. MEDICAL HISTORY: The with Sumit was complicated by slightly mild maternal hypertension. She had a normal ultrasound. She was on imipramine during the and had no illnesses or otherexposures. Sumit was born at [facility] at 40 weeks gestation by vaginal delivery. weight 7 pounds 6 ounces, length 21 inches. He was felt to havean infection and was transferred to [facility] where he was diagnosed with an ASD and a PDA. He has had no surgery. He was seen once a month at [facility] cardiology and at age 5 was discharged from their care, feeling that both theASD and PDA had closed on their own. He has otherwise been healthy. Is on no current medications and has no known allergies. He has had no hospitalizations or surgicalprocedures. He did have a chest x-ray for an episode of pneumonia and has had several episodes of bronchitis and bronchiolitis for which he has been treated with nebulizer. He was seen by Dr. Doe and was diagnosed with hyperopia, for which he was prescribed glasses which he is not wearing today.He had a [facility] evaluation a few weeks ago and we do not have those records at the time of this evaluation. With respect to his development, he walked at about 18 months. His speech delay was identified between 1-1/2 to 2 years and currently he has a number of naming words but does not speak in full sentences. He is toilet trained during the day for urine and wears a diaper at night. He is in preschool in [facility] and did receive physical therapy for help with crawling but no longer receives it. He receives occupational therapy and speech therapy. There are no behavioral concerns, although he does seem to swallow with some retention of food in his mouth and swallows in small gulps. PHYSICAL EXAMINATION: Weight 15.6 kg (10th percentile), height 105.1 cm (25th percentile), head circumference 53.4 cm (98th percentile). He has a normally shaped head and normally positioned eyes with an inner intercanthal distance of 2.8 cm and a normal palpebral fissure length of 2.5 cm. His earsmeasure 5.7 cm in length and are slightly low set. His palate is slightly high but not narrow and there is no cleft abnormality. His face is symmetric. Neck shows no sinuses, pits, or tracts. Thorax is normally formed and his cardiovascular exam is normal without murmurs, rubs or gallops. His back shows no signs of scoliosis.His abdomen is soft and nontender with no hepatosplenomegaly. He has normal male genitalia with testes descended bilaterally. His arms have normal range of motion. His hands had a normal palmar crease pattern and measure 11.8 cm in length with a middle finger length of 4.7 cm. 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 SUMMARY: This child has mildly low-set ears and is otherwise nondysmorphic and shows no signs on physical exam of a particular syndrome to cause his developmental delay. I have recommended the genetic workup start with a karyotype and 22q deletion studies because of the maternal history of depression and history of speech acquisition problems as well as Fragile X DNA testing. Should this initial round be negativeI would then recommend going directly to a whole genome microarray as it has been shown in the last 6 months that microarrays are able to pickling drum operator small differences that contribute to a child's learning problems even in the absence of dysmorphic features.I would be happy to meet withthe family again to discuss the microarray or any positive findings on testing sent today. Requisition was given to Sumit's mother and the plan was to have the testing drawn today. Signed by Rebecca Lawrence MD 10/18/2007 07:17 Rebecca Lawrence MD - Rebecca Lawrence MD P - JACQUELINE Job ID: [id number] Document ID: [id number] cc: MD Robel Escobar, DDS [facility], [address] [place] [address]* D: - Rebecca Lawrence MD P - jacqueline Job ID: [id number] Document ID: [id number] cc: Robel Christianson, DDS [facility], [facility], [address] [place] [address]* documented in this encounter Plan of Treatment Not on file documented as of this encounter Visit Diagnoses Not on filedocumented in this encounter
[2024-06-05 19:19] LABS: Abs Immature Grans 0.04 10^3/uL (0.0-0.06); Absolute Basophil Count 0.07 10^3/uL (0.0-0.2); Absolute Eosinophil Count 0.22 10^3/uL (0.0-0.7); Absolute Lymphocyte Count 1.81 10^3/uL (1.2-3.4); Absolute Monocyte Count 0.89 10^3/uL (0.1-0.8); Absolute Neutrophil Count 6.16 10^3/uL (1.2-6.7); Basophils % 0.8 %; Eosinophils % 2.4 %; HGB 15.3 g/dL (13.5-17.5); Immature Grans % 0.4 %; Lymphocytes % 19.7 %; MCH 28.8 pg (27.0-33.0); MCV 85 fL (80-95); MPV 9.4 fL (8.0-11.0); Monocytes % 9.7 %; Platelet Count 309 10^3/uL (130-400); RBC 5.31 10^6/uL (4.36-5.78); RDW 12.4 % (11.8-14.1); RDW-SD 37.9 fL; WBC 9.19 10^3/uL (4.4-10.8)
[2024-06-05 19:45] LABS: TSH (W/Ref FT4) 1.29 uIU/mL (0.36-3.74)
== END 2024-06-05 17:32 | disposition home or self-care (01) ==
LOC: NCHCN 17:31
PROVIDERS: Visit Provider Student in an Organized Health Care Education/Training Program
DX: R53.83 Other fatigue (principal)
CPT/HCPCS: 84443; 85025

== ENCOUNTER 2025-10-09 16:40 | Emergency (ER) | payer MEDICARE, MEDICAID, SELFPAY ==
[2025-10-09 16:42] VITALS: BP 128/82; PULSE 66; RESP 16; O2SAT 98
--- NOTE | 2025-10-09 16:50 | ED.GENADUL_ITS ---
Discharge Plan Disposition Patient Disposition: Home Condition: Stable Discharge Details Clinical Impression: Urinary tract infection Primary Care Provider: Unknown,Unknown ED Provider: Betito Ji Home Meds and New Rx's Prescriptions: New cefpodoxime 200 mg tablet 200 mg PO BID 10 Days Qty: 20 0RF Rx Instructions: must administer with a meal/food Continued venlafaxine 150 mg capsule,extended release 24hr 150 mg PO DAILY Patient Comments: TAKE ONE CAPSULE BY MOUTH EVERY DAY DIRECTED Discharge Instructions Instructions: Cefpodoxime, Urinary Tract Infection, Adult ED Additional Instructions: You were seen in the emergency department for your dysuria with mild hematuria, you have a urinary tract infection, there is no kidney stone seen on your CT we are covering you for both UTI and kidney infection with the antibiotics cefpodoxime, please pick this up at the pharmacy tomorrow, you can purchase [id number] AZO which will help numb the urethra for symptomatic relief of pain, take Tylenol and ibuprofen as well, stay well-hydrated, return for any severe acute worsening, fever, nausea, weakness or any other emergent concerns. Stand Alone Forms: Portal Information Discharge Data Discharge Date/Time-TO BE ENTERED AT DEPARTURE: 10/09/25 18:41 HPI General Date/Time Provider Initiated Documentation: 10/09/25 16:49 . HPI Narrative: 25 year-old male presents to ED today by POV/ambulating with his mother with a chief complaint of dysuria, hematuria with onset this morning. Quality described as burning sensation, pinkish hue to urine, no radiation to flank pain, urinary retention, fever, abdominal pain, sexual activity. Severity is described as moderate. Palliating factors include nothing specific attempted. Provoking factors include nothing specific. Patient not anticoagulated. Related Data Home Medications ?Medication ?Instructions ?Recorded ?Confirmed cefpodoxime 200 mg tablet 200 mg PO BID 10 days #20 ta bs 10/09/25 venlafaxine 150 mg 150 mg PO DAILY 10/09/25 capsule,extended release 24 hr Previous Rx's ?Medication ?Instructions ?Recorded cefpodoxime 200 mg tablet 200 mg PO BID 10 days #20 ta bs 10/09/25 Allergies Allergy/AdvReac Type Severity Reaction Status Date / Time No Known Allergies Allergy Verified 10/09/25 16:46 General Stated Complaint: Urinary CORAL: 3 Review of Systems All systems reviewed & are unremarkable except as noted in HPI and below Exam Narrative Exam Narrative: GENERAL APPEARANCE: Well-nourished, non-toxic, awake and alert, atraumatic, no acute distress. SKIN: Warm, pink, dry, intact, without rashes/lesions/ulcerations. HEAD: Normocephalic, atraumatic, normal hair distribution for gender/age. EYES: Normal conjunctiva, no exudates on lids/lashes. ENT: Nares patent, no circumoral cyanosis, no facial swelling NECK: Supple, trachea midline, painless cervical ROM. LUNGS/CHEST: Non-labored respirations, normal A/P diameter, symmetrical expansion, no chest wall deformity HEART (CV/PV): No peripheral edema, no JVD. ABDOMEN: Soft, non-distended, no guarding, mild suprapubic discomfort to palpation, no rebound tenderness, negative McBurney's point tenderness, no CVA tenderness to percussion bilaterally. MSK: Normal ROM, no swelling/deformity to bilateral UEs or LEs, moving all extremities without weakness, no cyanosis, spine midline without tenderness, normal curvature. NEURO: Mental Status AAOx4 - alert to person, place, time, events No facial droop, no forehead involvement. Motor: No focal weakness Sensory: sensation intact to light touch globally. Gait normal: patient ambulated without ataxia into ED room. PSYCH: euthymic, cooperative, pleasant, appropriate speech Course Vital Signs Vital signs: Vital Signs Pulse 66 10/09/25 16:42 Respiratory Rate 16 10/09/25 16:42 Blood Pressure 128/82 10/09/25 16:42 Pulse Oximetry 98 10/09/25 16:42 Temperature Source Oral 10/09/25 16:42 Pulse 66 10/09/25 16:42 Respiratory Rate 16 10/09/25 16:42 Blood Pressure 128/82 10/09/25 16:42 Blood Pressure Position Sitting 10/09/25 16:42 Pulse Oximetry 98 10/09/25 16:42 Oxygen Delivery Method Room Air 10/09/25 16:42 Oxygen Flow Rate 0 10/09/25 16:42 Pain Level 5 10/09/25 16:42 Medical Decision Making This dictation utilizes [id number] dictation software and may contain unedited grammatical errors. 25 year-old male presents to ED today by POV/ambulating with his mother with a chief complaint of dysuria, hematuria with onset this morning. Quality described as burning sensation, pinkish hue to urine, no radiation to flank pain, urinary retention, fever, abdominal pain, sexual activity. Severity is described as moderate. Palliating factors include nothing specific attempted. Provoking factors include nothing specific. Patients' medical history: Cerebral palsy. Family and social history: Lives at home, no EtOH or IVDU, not sexually active. Pertinent exam findings / vital signs include genitalia exam deferred, no abdominal tenderness, stable vitals, benign cardiopulmonary status Differential / pathologies of concern include UTI, ureteritis, unlikely STI, renal stone. Diagnostic studies of: - UA, CBC, CMP, lipase, CT renal colic without contrast. - CBC shows leukocytosis of 14.31 without left shift - CMP without XENIA, bilirubin 2.3, nonspecific, no right upper quadrant tenderness - UA shows moderate leuk esterase with greater than 50 WBCs likely UTI - CT renal colic study shows that there is mild dilatation of the right ureter, no calculus is seen and a thickened wall of the urinary bladder consistent with UTI, possibly he passed a stone Interventions of: - 1 g p.o. Tylenol, 15 mg IV Toradol, 4 mg IV Zofran, 1 L IVF NS, 2 g ceftriaxone, Rx for cefpodoxime p.o. ED Course/Assessment/Plan: 25-year-old male presents with onset of dysuria and some pinkish hue to his urine this morning, he has no history of kidney stone, is not sexually active, his urine shows UTI, CT shows some right ureteral dilatation but no stone and thickened wall of the bladder, it is possible he passed a stone but he def initely has UTI that we can treat with cefpodoxime and due to the astatic nature of his signs of infection we are covering for pyelonephritis, counseled on taking regular dose of Tylenol and ibuprofen to stay well-hydrated and returning for any severe acute worsening. Findings not consistent with urinary retention, infected kidney stone, sepsis, toxic presentation. Disposition of urinary tract infection. Patient verbalized understanding of the plan and return to ED criteria and engaged in shared decision making. Medical Records Medical records reviewed: Yes I reviewed the patient's medical records. Imaging Data Radiologic Study: Attestation: I personally reviewed and interpreted this imaging study as follows: Imaging: CT Scan Radiologist's impression: EXAM: CT RENAL COLIC WO CLINICAL HISTORY: hematuria, dysuria. TECHNIQUE: Imaging Protocol: Axial computed tomography images with coronal and sagittal reformatted images were created and reviewed CONTRAST MATERIAL: Intravenous: none Oral: None COMPARISON: No exams were available for comparison FINDINGS: VISUALIZED LUNG BASES: No nodules nor pleural effusions evident. ABDOMEN: There is no ascites. LIVER: There are no obvious focal hepatic lesions evident of this noninfused study. GALLBLADDER/BILIARY: No obvious gallbladder pathology. CBD is not dilated. PANCREAS: No evidence of pancreatic mass nor dilatation of the pancreatic duct. SPLEEN: Spleen is not enlarged. No obvious intrasplenic lesions. ADRENALS: There are no significant adrenal masses. KIDNEYS:Left kidney unremarkable. Also no significant focal findings in the right kidney. No solid renal masses nor cysts. There is slight prominence of the right ureter but no radiopaque calculus evident in the ureter nor within the urinary bladder. Urinary bladder wall is uniformly thickened. No focal mass evident. ABDOMINAL AORTA: Abdominal aorta is not enlarged. LYMPH NODES: There is no retroperitoneal nor paraaortic adenopathy. ABDOMINAL WALL: No evidence of significant anterior abdominal wall nor inguinal hernia. GI: There is no evidence of bowel obstruction, free air, nor abscess. PELVIS: LYMPH NODES: There is no intrapelvic nor inguinal adenopathy. GI: No evidence of appendicitis.No evidence of sigmoid diverticulitis. URINARY BLADDER: Uniform thickening of the urinary bladder wall noted to measurement of 4 mm. No distinct mass. No intraluminal calculi nor clots. REPRODUCTIVE: Prostate and seminal vesicles appear age-appropriate. OSSEOUS: No significant osseous lesions. No fractures IMPRESSION: 1. There is mild dilatation of the right ureter. No radiopaque calculus seen therein nor within the urinary bladder. However, the wall the urinary bladder is uniformly thickened to 4 mm diameter. This is consistent with probable cystitis. 2. Prostate gland exhibits normal size. Seminal vesicles appear unremarkable. Called by myself to ER provider 10/09/2025 at 6:02 p.m. Lab Data Lab results reviewed: Yes I reviewed the patient's lab results. Labs: 10/09/25 16:50 Urine - Reflex from Ua Urine Culture - Pending Laboratory Tests Range/Units 10/09/25 10/09/25 16:50 17:16 WBC (4.4-10.8) 10^3/uL 14.31 H RBC (4.36-5.78) 10^6/uL 5.61 Hgb (13.5-17.5) g/dL 15.6 Hct (40.0-50.0) % 45.8 MCV (80-95) fL 82 MCH (27.0-33.0) pg 27.8 MCHC (32.0-36.0) % 34.1 RDW (11.8-14.1) % 12.1 Plt Count (130-400) 10^3/uL 309 MPV (8.0-11.0) fL 8.8 Immature Gran % % 0.3 Neutrophils % % 76.4 Lymphocytes % % 12.9 Monocytes % % 7.8 Eosinophils % % 2.0 Basophils % % 0.6 Nucleated RBC % (0.0-0.3) % 0.0 Absolute Neutrophils (1.2-6.7) 10^3/uL 10.93 H Absolute Lymphocytes (1.2-3.4) 10^3/uL 1.85 Absolute Monocytes (0.1-0.8) 10^3/uL 1.12 H Absolute Eosinophils (0.0-0.7) 10^3/uL 0.29 Absolute Basophils (0.0-0.2) 10^3/uL 0.09 Sodium (136-145) mmol/L 135 L Potassium (3.5-5.1) mmol/L 3.9 Chloride (98-107) mmol/L 98 Carbon Dioxide (20.0-31.0) mmol/L 29.6 Anion Gap (3-11) mmol/L 7.2 BUN (9-23) mg/dL 20 Creatinine (0.73-1.18) mg/dL 0.89 Est GFR (CKD-EPI 2020) (mL/min/1.73m2) 105.81 Glucose (74-106) mg/dL 100 Calcium (8.3-10.6) mg/dL 9.7 Total Bilirubin (0.2-1.2) mg/dL 2.3 H AST (<34) U/L 18 ALT (10-49) U/L 8 L Alkaline Phosphatase (46-116) U/L 67 Total Protein (5.7-8.2) g/dL 8.3 H Albumin (3.2-5.0) g/dL 5.1 H Lipase (<53) U/L 28 Urine Color (Yellow) Yellow Urine Clarity (Clear) Cloudy Urine pH (5-8) 6.0 Ur Specific [place] (1.005-1.025) 1.015 Urine Protein (Neg-Trace) mg/dL 100 H Urine Ketones (Negative) mg/dL Negative Urine Blood (Negative) Large H Urine Nitrite (Negative) Negative Urine Bilirubin (Negative) Negative Urine Urobilinogen (Up to 0.2) mg/dL 0.2 Ur Leukocyte Esterase (Negative) Moderate H Urine RBC (0-2) HPF 20-50 H Urine WBC (0-5) HPF >50 H Ur Epithelial Cells (Negative) HPF Rare Urine Crystals (Negative) HPF Negative Urine Bacteria (Negative) HPF Rare Urine Casts (Negative) LPF Negative Urine Mucus (Negative) Negative Ur Culture Indicated? Yes Urine Glucose (Negative) mg/dL Negative PFSH All Active Problems (Updated 10/09/25 @ 18:05 by DELORES Koehler) Urinary tract infection (Acute) Intellectual disability (Chronic) Dad has legal guardianship; connected to disability services via [facility] Atrial septal defect (Chronic 09/15/13) small PFO with L to R shunt - followed by peds cardiology 02/25 Cerebral palsy (Chronic 02/02/16) Diagnosed 11/2015 at [facility] [place] - Dr. Esposito Medical History Cognitive attention deficit Cellulitis of left lower limb Allergy to honey bee venom Underweight Socialized behavior disorder Depressive disorder Weight loss COVID In Oct 2021 Suicidal ideation Attention and concentration deficit Per evaluation with Dr. Chaudhary Nov 2020 Social anxiety disorder Per evaluation with Dr. Chaudhary 11/2020 Depression Ongoing counseling but persistent suicidal ideation despite medication (hx of Lexapro, Zoloft, Wellbutrin)- trial Effexor 04/07/21 Syncope (09/25/17) One episode 2015; one episode 2016 Family History Mother Anxiety Depression Father Hyperlipidemia Sister Asthma Grandparent Cancer Maternal Grandfather Alcohol abuse Anxiety Depression Social History Smoking/Tobacco Use Status: Never Second Hand Exposure: No Smoking risk assessment performed?: Yes Alcohol Intake: never Drug use: Never Substance use type: does not use Adopted: No Caregiver/Support person: Yes (Lives with Dad) Foster care: No Household members: other Details: Parents ; 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 spring 2021 Do you need help understanding health information?: Always current occupation: [employer] Pets and animals: No Sexually active: No Do you think of yourself as: straight/heterosexual Current gender identity: male What is your relationship status?: never Panel score (0-1 are the most socially isolated patients): 0 What type of physical activity do you participate in: other Details: Basketball everyday, walks, bike riding Seatbelt use: always Helmet use: Yes Drive intox or ride w/intox cpr ambulance driver: No Working smoke detector in home: Yes Fire extinguisher in home: Yes Carbon monox detector in home: Yes Firearms in home: No Do you feel safe at home: Yes Do you feel safe in your relationship?: Yes
--- NOTE | 2025-10-09 17:00 | DI.CT_ITS ---
Exam(s) CT RENAL COLIC WO EXAM: CT RENAL COLIC WO CLINICAL HISTORY: hematuria, dysuria. TECHNIQUE: Imaging Protocol: Axial computed tomography images with coronal and sagittal reformatted images were created and reviewed CONTRAST MATERIAL: Intravenous: none Oral: None COMPARISON: No exams were available for comparison FINDINGS: VISUALIZED LUNG BASES: No nodules nor pleural effusions evident. ABDOMEN: There is no ascites. LIVER: There are no obvious focal hepatic lesions evident of this noninfused study. GALLBLADDER/BILIARY: No obvious gallbladder pathology. CBD is not dilated. PANCREAS: No evidence of pancreatic mass nor dilatation of the pancreatic duct. SPLEEN: Spleen is not enlarged. No obvious intrasplenic lesions. ADRENALS: There are no significant adrenal masses. KIDNEYS:Left kidney unremarkable. Also no significant focal findings in the right kidney. No solid renal masses nor cysts. There is slight prominence of the right ureter but no radiopaque calculus evident in the ureter nor within the urinary bladder. Urinary bladder wall is uniformly thickened. No focal mass evident. ABDOMINAL AORTA: Abdominal aorta is not enlarged. LYMPH NODES: There is no retroperitoneal nor paraaortic adenopathy. ABDOMINAL WALL: No evidence of significant anterior abdominal wall nor inguinal hernia. GI: There is no evidence of bowel obstruction, free air, nor abscess. PELVIS: LYMPH NODES: There is no intrapelvic nor inguinal adenopathy. GI: No evidence of appendicitis.No evidence of sigmoid diverticulitis. URINARY BLADDER: Uniform thickening of the urinary bladder wall noted to measurement of 4 mm. No distinct mass. No intraluminal calculi nor clots. REPRODUCTIVE: Prostate and seminal vesicles appear age-appropriate. OSSEOUS: No significant osseous lesions. No fractures IMPRESSION: 1. There is mild dilatation of the right ureter. No radiopaque calculus seen therein nor within the urinary bladder. However, the wall the urinary bladder is uniformly thickened to 4 mm diameter. This is consistent with probable cystitis. 2. Prostate gland exhibits normal size. Seminal vesicles appear unremarkable. Called by myself to ER provider 10/09/2025 at 6:02 p.m. RADIATION DOSE DELIVERED: 299.86mGy.cm Total DLP DATA REPOSITORY: All CT scans at this facility are submitted to the National Radiology Data Registry (NRDR) Dose Index Registry (DIR) with the [employer] (A[employer]). RADIATION OPTIMIZATION: All CT scans at this facility use at least one of these dose optimization techniques: automated exposure control; mA and/or kV adjustment per patient size (includes targeted exams where dose is matched to clinical indication); or iterative reconstruction.
[2025-10-09] MEDS: Ketorolac 15 MG/ML VIAL IVP (17:22)
[2025-10-09] MEDS: Normal Saline 1,000 ML 1000 ML IV (17:22)
[2025-10-09] MEDS: Ondansetron 4 MG/2 ML VIAL IVP (17:22)
[2025-10-09] MEDS: Acetaminophen 500 MG TAB 1000 MG PO (17:22)
[2025-10-09 17:32] VITALS: BP 128/82; PULSE 66; RESP 16; O2SAT 98
[2025-10-09 17:38] LABS: Abs Immature Grans 0.04 10^3/uL (0.0-0.06); HCT 45.8 % (40.0-50.0); HGB 15.6 g/dL (13.5-17.5); Immature Grans % 0.3 %; MCH 27.8 pg (27.0-33.0); MCHC 34.1 % (32.0-36.0); MCV 82 fL (80-95); MPV 8.8 fL (8.0-11.0); Platelet Count 309 10^3/uL (130-400); RBC 5.61 10^6/uL (4.36-5.78); RDW 12.1 % (11.8-14.1); RDW-SD 35.7 fL; WBC 14.31 10^3/uL (4.4-10.8)
[2025-10-09 17:46] LABS: Glucose Negative (Negative)
[2025-10-09 17:58] LABS: ALT 8 U/L (10-49); AST 18 U/L (<34); Albumin 5.1 g/dL (3.2-5.0); Alkaline Phosphatase 67 U/L (46-116); Anion Gap 7.2 mmol/L (3-11); BUN 20 mg/dL (9-23); Bilirubin, Total 2.3 mg/dL (0.2-1.2); CO2 29.6 mmol/L (20.0-31.0); Calcium 9.7 mg/dL (8.3-10.6); Chloride 98 mmol/L (98-107); Glucose 100 mg/dL (74-106); Lipase 28 U/L (<53); Potassium 3.9 mmol/L (3.5-5.1); Sodium 135 mmol/L (136-145); Total Protein 8.3 g/dL (5.7-8.2)
[2025-10-09 17:59] LABS: C & S Indicated? Yes; RBC 20-50 HPF (0-2); WBC >50 HPF (0-5)
[2025-10-09] MEDS: cefTRIAXone 2 GM/50 ML BAG IVPB (18:12)
[2025-10-09 18:41] VITALS: BP 112/74; PULSE 74; RESP 15; O2SAT 98
== END 2025-10-09 18:41 | disposition home or self-care (01) ==
PROVIDERS: Emergency Provider Physician Assistant
DX: N39.0 Urinary tract infection, site not specified (principal); R30.0 Dysuria
CPT/HCPCS: 36415; 80053; 83690; 96361; 96365; 96375; 99284; 74176; 81003; 81015; 85025; 87086; J0696; J1885; J2405